=== PATIENT | female | born 1955 | race Caucasian/White ===

== ENCOUNTER 2024-09-30 01:04 | Inpatient (IN) | payer MEDICARE, SELFPAY ==
[2024-09-30] VITALS (18 sets, daily range): BP systolic 105–147; BP diastolic 28–96; PULSE 64–146; RESP 12–27; TEMP 36.4–36.9; O2SAT 92–98; BMI 28.1
--- NOTE | 2024-09-30 | ECG_ITS ---
Test Reason : DYSPNEA Blood Pressure : */* mmHG Vent. Rate : 112 BPM Atrial Rate : * BPM P-R Int : * ms QRS Dur : 82 ms QT Int : 318 ms P-R-T Axes : * 15 161 degrees QTcB Int : 434 ms Atrial fibrillation with rapid ventricular response with occasional ventricular-paced complexes ST & T wave abnormality, consider lateral ischemia Abnormal ECG No previous ECGs available Referred By: Generic ED Physician Electronically Signed By: AYALA DOOLEY MD
--- NOTE | ~2024-09-30 | XR_ITS ---
EXAMINATION: XR CHEST CLINICAL INFORMATION: Hypoxemia for eval COMPARISON: 09/30/2024. TECHNIQUE: Frontal view of the chest was obtained. FINDINGS: Right chest port in place, tip in the mid SVC. There is a mildly redundant loop in the extrathoracic right IJ. This has retracted mildly from the prior exam. Dual lead left pacer device with leads in the right atrium and right ventricle. There is borderline cardiac enlargement. Mediastinal and hilar contours are normal. Aortic mural calcification. The lungs are hyperaerated, however grossly clear bilaterally. Minimal linear opacity left base, likely atelectasis. No pneumothorax or effusion. No focal osseous or soft tissue abnormality. XR/XR chest 1V IMPRESSION: 1. Right chest port has retracted mildly into the right IJ. Tip is now in the mid SVC. 2. Dual-lead pacer in good position. 3. Borderline cardiac enlargement. 4. Hyperaerated lung parenchyma. Linear opacity left base, likely atelectasis. Cannot definitively exclude pneumonia given the appearance. Electronically signed by: Jose Martin Ramirez MD 10/05/2024 03:59 PM ROSA
--- NOTE | ~2024-09-30 | XR_ITS ---
CLINICAL HISTORY: chf 1 view chest x-ray Comparison: None Findings: Increasing consolidation within the left lung concerning for infection. Right lung remains predominantly clear. Right chest port place. Heart size is stable. Dual lead ICD with left chest battery pack. No acute osseous findings. IMPRESSION: 1. Worsening consolidation on the left concerning for infection. This document has been electronically signed by: Aleja Hill MD on 10/06/2024 05:36:10
--- NOTE | ~2024-09-30 | XR_ITS ---
CLINICAL HISTORY: dyspnea 1 view chest x-ray. Comparison: None Findings: There is mild left basilar opacity possibly small effusion, atelectasis, and/or infiltrate. Lungs appear otherwise clear. Cardiomediastinal silhouette is within normal limits. There is a left-sided pacemaker with leads in the right atrium and right ventricle. There is a right IJ port catheter with tip in the SVC. IMPRESSION: Mild left basilar opacity possibly small effusion, atelectasis, and/or infiltrate. This document has been electronically signed by: Anton Saunders MD on 09/30/2024 02:08:04
--- NOTE | 2024-09-30 01:27 | ED.SOB ---
HPI - SOB/Dyspnea General Chief Complaint: Dyspnea Stated Complaint: SOB/CHEST TIGHTNESS Time Seen by Provider: 09/30/24 01:26 Source: patient Mode of arrival: EMS Limitations: no limitations History of Present Illness ED Provider: HPI Narrative: Patient's history of atrial fibrillation status post pacemaker for bradycardia which was placed 2 weeks ago on Eliquis and metoprolol and digoxin comes here as patient just prior to arrival was feeling palpitation with shortness of breath and chest tightness heart rate was in 130s/175s lately for last few days patient has been having exertional dyspnea with palpitation Related Data Allergies Allergy/AdvReac Type Severity Reaction Status Date / Time No Known Allergies Allergy Verified 09/30/24 01:21 Review of Systems Review of Systems: Yes all other systems are reviewed and are negative [facility] Past Medical History Medical History Mood disorder Atrial fibrillation Hypothyroidism Social History Social History Patient Tobacco Use Status: Never used Tobacco Smoked in Last 30 Days: No Use of substances other than those prescribed or required for medical reasons: No Advance Directives: No Nutrition Risks: No Nutritional Risk Physical Exam Vital Signs: Vital Signs: Last Vital Signs Temp 97.6 F 09/30/24 05:06 Pulse 75 09/30/24 05:06 Resp 12 09/30/24 05:06 BP 105/74 09/30/24 05:06 Pulse Ox 98 09/30/24 05:06 O2 Del Method Room Air 09/30/24 05:06 BMI result Body Mass Index 28.1 Appearance: Alert. Oriented X3. No acute distress. Eyes: PERRLA, No Nystagmus ENT: Pharynx normal. Oral Mucosa moist Neck: Normal inspection. Neck supple. CVS: Irregularly irregular tachycardic. Pulses normal. Respiratory: No respiratory distress. Equal air entry bilateral, occasional crackles at the bases Abdomen: Soft and nontender. Bowel sounds are present, no mass palpable, no CVA tenderness Skin: Skin warm and dry. Normal skin color. Normal skin turgor. Extremities: No lower extremity edema. No calf tenderness Neuro: Oriented X 3. No motor deficit. No sensory deficit.No cerebellar signs , cranial nerves II-XII intact Medications Administered Generic Name Dose Route Start Last Admin Trade Name Freq PRN Reason Stop Dose Admin Diltiazem HCl 125 mg/ Sodium 125 mls @ 0 mls/hr 09/30/24 03:45 09/30/24 03:58 Chloride IVCONT 10 mg/hr .Q0M NACHO 10 mls/hr Administration Protocol Per Protocol Discontinued Medications Generic Name Dose Route Start Last Admin Trade Name Freq PRN Reason Stop Dose Admin Clonazepam 0.5 mg 09/30/24 04:38 09/30/24 05:02 Clonazepam 0.5 Mg Tablet PO 09/30/24 04:39 0.5 mg ONCE ONE Administration Diltiazem HCl 10 mg 09/30/24 01:38 09/30/24 01:57 Diltiazem Hcl 50 Mg/10 Ml Vial IVPUSH 09/30/24 01:39 10 mg STAT STA Administration Furosemide 20 mg 09/30/24 03:37 09/30/24 03:52 Furosemide 20 Mg/2 Ml Vial IVPUSH 09/30/24 03:38 20 mg ONCE ONE Administration Protocol Medical Decision Making Medical Decision Making [facility] Narrative: Patient with AFib with rapid ventricular rate on digoxin and metoprolol initial IV Cardizem was given rate improved to 80 then again started tachycardic to 110-120 stays in AFib started patient on Cardizem drip also patient has a elevated BNP no prior labs available few crackles at the bases and patient has dyspnea on exertion not on any diuretics will give IV Lasix admit to hospitalist service Differential Diagnosis Differential Diagnoses: The differential diagnosis associated with the presentation includes AFib/atrial flutter/cardiac arrhythmias/CHF Admission/Observation Consideration of admission/observation: Escalation of care including admission/observation considered Consult Healthcare Provider Management of the patient was discussed with: Hospitalist Lab Data [facility] Lab Attestation statement: I reviewed the patient's lab results. 09/30/24 01:21 09/30/24 01:21 Labs: Lab Results 09/30/24 Range/Units 01:21 WBC 10.8 (4.8-10.8) X10*3/uL RBC 4.48 (4.20-5.50) X10*6/uL Hgb 12.7 (12.0-16.0) g/dl Hct 39.7 (37.0-47.0) % MCV 88.6 (80.0-98.0) fL MCH 28.3 (27.0-33.0) pg MCHC 32.0 (31.0-35.0) g/dl RDW 14.7 (11.0-16.0) % Plt Count 410 H (160-400) X10*3/uL MPV 11.1 (9.4-12.3) fL Immature Gran % (Auto) 0.5 H (0.0-0.4) % Neut % (Auto) 70.8 (45-73) % Lymph % (Auto) 17.4 L (20-40) % Robeson % (Auto) 9.2 (2-11) % Eos % (Auto) 1.2 (0-4) % Baso % (Auto) 0.9 (0-2) % Lymph # (Auto) 1.9 (1.2-4.9) X10*3/uL [place] # (Auto) 1.0 (0.1-1.2) X10*3/uL Eos # (Auto) 0.1 (0.0-0.4) X10*3/uL Baso # (Auto) 0.1 (0.0-0.2) X10*3/uL Abs Immat Gran (auto) 0.05 H (0.00-0.03) X10*3/uL Absolute Neuts (auto) 7.6 (2.0-8.3) x10*3/uL Absolute Nucleated RBC 0.000 (0.0-0.012) X10*3/uL Nucleated RBC % (auto) 0.0 (0.0-0.2) /100WBC Sodium 143 (135-145) mmol/L Potassium 4.2 (3.3-5.1) mmol/L Chloride 112 H (96-108) mmol/L Carbon Dioxide 22 (22-29) mmol/L Anion Gap 13 (12-20) BUN 30 H (9-16) mg/dL Creatinine 1.20 (0.5-1.4) mg/dL Estim Creat Clear Calc 52.5 Estimated GFR 45 Random Glucose 123 H (60-115) mg/dL Calcium 9.3 (8.4-10.2) mg/dL Total Bilirubin 0.4 (0.0-1.0) mg/dL AST 94 H (5-31) U/L ALT 111 H (0-31) U/L Alkaline Phosphatase 159 H (39-117) U/L Troponin I High Sens 15.7 (<3.5-17.0) ng/L B-Natriuretic Peptide 2710 H (<100) pg/mL Total Protein 7.5 (6.5-8.0) g/dL Albumin 3.6 (3.5-5.0) g/dL Independent Interpretation I performed an independent interpretation of an: EKG and Plain X-Ray Interpretation: Atrial fibrillation with rapid ventricular rate of 112 nonspecific STT wave change no acute ischemia Radiology Impression Discussion of test interpretation with radiology: I have reviewed the radiologist's reading. Radiologist Impression: [address] [address] XRay Report Signed Patient: Antonia Mandujano MR#: [id number] : 1955 Acct:[id number] Age/Sex: 69 / F ADM Date: 09/30/24 Loc: .ED Attending Dr: Ordering Physician: Víctor Doe MD Date of Service: 09/30/24 Procedure(s): XR chest 1V Accession Number(s): [id number] cc: Víctor Doe MD~ CLINICAL HISTORY: dyspnea 1 view chest x-ray. Comparison: None Findings: There is mild left basilar opacity possibly small effusion, atelectasis, and/or infiltrate. Lungs appear otherwise clear. Cardiomediastinal silhouette is within normal limits. There is a left-sided pacemaker with leads in the right atrium and right ventricle. There is a right IJ port catheter with tip in the SVC. IMPRESSION: Mild left basilar opacity possibly small effusion, atelectasis, and/or infiltrate. This document has been electronically signed by: Anton Saunders MD on 09/30/2024 02:08:04 Critical Care Time Critical Care Time Critical Care Time: Yes Total Critical Care Time: 55 Attestation: The patient was critically ill with a high probability of imminent or life threatening deterioration. I spent greater than 60???minutes of discontinuous time evaluating the patient,delivering critical care at the bedside, discussing and evaluating pertinent data with consultants. Critical care time does not include time spent performing separately billable procedures or teaching. Total time spent performing critical care was 55???minutes. Discharge Plan Discharge Clinical Impression: Atrial fibrillation with rapid ventricular response, Congestive heart failure Patient Disposition: Admitted As Inpatient
[2024-09-30 01:28] LABS: Basophils Absolute Auto 0.1 X10*3/uL (0.0-0.2); Basophils Percent Auto 0.9 % (0-2); Eosinophils Absolute Auto 0.1 X10*3/uL (0.0-0.4); Eosinophils Percent Auto 1.2 % (0-4); Hematocrit 39.7 % (37.0-47.0); Hemoglobin 12.7 g/dl (12.0-16.0); Imm Gran Abs Auto 0.05 X10*3/uL (0.00-0.03); Imm Gran Pct Auto 0.5 % (0.0-0.4); Lymphocytes Absolute Auto 1.9 X10*3/uL (1.2-4.9); Lymphocytes Percent Auto 17.4 % (20-40); MANUAL DIFF FLAG NO; Mean Corpuscular Hemoglobin 28.3 pg (27.0-33.0); Mean Corpuscular Volume 88.6 fL (80.0-98.0); Mean Platelet Volume 11.1 fL (9.4-12.3); Monocytes Percent Auto 9.2 % (2-11); Neutrophils Absolute Auto 7.6 x10*3/uL (2.0-8.3); Neutrophils Percent Auto 70.8 % (45-73); Platelet Count 410 X10*3/uL (160-400); Red Blood Count 4.48 X10*6/uL (4.20-5.50); Red Cell Distribution Width 14.7 % (11.0-16.0); White Blood Count 10.8 X10*3/uL (4.8-10.8)
[2024-09-30 01:49] LABS: Alanine Aminotransferase 111 U/L (0-31); Albumin Level 3.6 g/dL (3.5-5.0); Anion Gap 13 (12-20); Aspartate Amino Transferase 94 U/L (5-31); Bilirubin Total 0.4 mg/dL (0.0-1.0); Blood Urea Nitrogen 30 mg/dL (9-16); Calcium 9.3 mg/dL (8.4-10.2); Carbon Dioxide 22 mmol/L (22-29); Chloride 112 mmol/L (96-108); Creatinine Clr Calc Pharmacy 52.5; Estimated Glomerular Filt Rate 45; Glucose Random 123 mg/dL (60-115); Potassium 4.2 mmol/L (3.3-5.1); Sodium 143 mmol/L (135-145); Total Protein 7.5 g/dL (6.5-8.0)
[2024-09-30 01:50] LABS: Troponin-I High Sensitivity 15.7 ng/L (<3.5-17.0)
[2024-09-30 01:57] LABS: B Type Natriuretic Peptide 2710 pg/mL (<100)
[2024-09-30] MEDS: dilTIAZem HCL 50 MG/10 ML VIAL 10 MG IVPUSH (01:57)
[2024-09-30 02:53] LABS: Alkaline Phosphatase 159 U/L (39-117)
--- NOTE | 2024-09-30 03:12 | ECG_ITS ---
Test Reason : AFIB Blood Pressure : */* mmHG Vent. Rate : 103 BPM Atrial Rate : * BPM P-R Int : * ms QRS Dur : 86 ms QT Int : 368 ms P-R-T Axes : * 40 160 degrees QTcB Int : 482 ms Atrial fibrillation with rapid ventricular response with occasional ventricular-paced complexes ST & T wave abnormality, consider lateral ischemia Abnormal ECG When compared with ECG of 30-Sep-2024 01:14, Vent. rate has decreased by 9 bpm Referred By: Víctor Doe Electronically Signed By: AYALA DOOLEY MD
[2024-09-30] MEDS: Furosemide 20 MG/2 ML VIAL IVPUSH (03:52)
[2024-09-30] MEDS: dilTIAZem HCL 125 MG in 0.9 % Sodium Chloride 100 ML 10 MG IVCONT (03:58)
--- NOTE | 2024-09-30 04:18 | PM.IMHP ---
History of Present Illness Date of Service: 09/30/24 Chief Complaint: Dyspnea, palpitations This is a 69-year-old female with pertinent history of atrial fibrillation on Eliquis, hypothyroidism, mood disorder, tobacco use disorder who presents to the emergency department for evaluation of palpitations and shortness of breath. Patient states her symptoms started on the day of presentation. She had sudden onset of palpitations while she was walking. The shortness of breath is worse with exertion and when lying flat. No history of heart failure in the past and patient is not on diuretics. No fever, chills, cough, abdominal pain, changes in urinary or bowel habits. In the emergency department, patient was found to be in AFib with RVR and initiated on IV diltiazem drip. Also BNP found to be elevated and patient was given IV Lasix Review of Systems Cardiovascular: Cardiovascular: Reports rapid heart rate, Reports dyspnea on exertion and Reports orthopnea Respiratory: Respiratory: Reports dyspnea on exertion [facility] Medical History Mood disorder Atrial fibrillation Hypothyroidism Pertinent family history: No family history of early CAD Social History Advance Directives: No Meds Allergies Allergy/AdvReac Type Severity Reaction Status Date / Time No Known Allergies Allergy Verified 09/30/24 01:21 Active Medications: Current Medications Diltiazem HCl 125 mg/ Sodium (Chloride) 125 mls @ 0 mls/hr IVCONT .Q0M [facility]; Protocol Last Admin: 09/30/24 03:58 Dose: 10 mg/hr, 10 mls/hr Physical Exam Vital Signs and Narrative: Vital Signs: Last Vital Signs Temp 97.6 F 09/30/24 01:17 Pulse 123 H 09/30/24 03:58 Resp 24 H 09/30/24 03:21 BP 112/81 09/30/24 03:58 Pulse Ox 98 09/30/24 03:21 O2 Del Method Room Air 09/30/24 03:21 BMI result Body Mass Index 28.1 Middle-aged female lying in bed in mild distress Neck supple Irregularly irregular, S1-S2 heard Bilateral crackles present Abdomen soft nontender, no guarding, no rigidity Patient is awake, alert and oriented to self, place, time and person ; no focal motor deficit Psych: Normal mood Bilateral mild pedal edema Results Labs 09/30/24 01:21 09/30/24 01:21 Labs: Laboratory Results - last 24 hr 09/30/24 01:21 MCV 88.6 MCH 28.3 MCHC 32.0 RDW 14.7 Plt Count 410 H MPV 11.1 Immature Gran % (Auto) 0.5 H Neut % (Auto) 70.8 Lymph % (Auto) 17.4 L [place] % (Auto) 9.2 Eos % (Auto) 1.2 Baso % (Auto) 0.9 Lymph # (Auto) 1.9 [place] # (Auto) 1.0 Eos # (Auto) 0.1 Baso # (Auto) 0.1 Abs Immat Gran (auto) 0.05 H Absolute Neuts (auto) 7.6 Absolute Nucleated RBC 0.000 Nucleated RBC % (auto) 0.0 Anion Gap 13 Estim Creat Clear Calc 52.5 Estimated GFR 45 Random Glucose 123 H Calcium 9.3 Total Bilirubin 0.4 AST 94 H ALT 111 H Alkaline Phosphatase 159 H B-Natriuretic Peptide 2710 H Total Protein 7.5 Albumin 3.6 Assessment and Plan (1) Congestive heart failure: Status: Acute (2) Atrial fibrillation with rapid ventricular response: Status: Acute Plan This is a 69-year-old female with pertinent history of atrial fibrillation on Eliquis, hypothyroidism, mood disorder, tobacco use disorder who presents to the emergency department for evaluation of palpitations and shortness of breath. #. AFib with RVR: Will admit patient with cardiac monitoring on IV diltiazem drip. Patient is on p.o. metoprolol. Consulted Cardiology, appreciate assistance. Obtaining TSH. Patient on Eliquis #. Acute congestive heart failure, unspecified EF: Initiated IV diuresis. Strict I's and O's. Low-salt diet. Obtaining echo. #. Hypothyroidism: On Synthroid #. Mood disorder: Continue home mood stabilizers #. Tobacco use disorder: NRT while in the hospital Med rec pending DVT prophylaxis: Eliquis Full code Admit as inpatient and will require two night minimum hospital stay for IV diuresis, monitoring of heart rate, IV diltiazem (as above), which is not possible in a lesser acute setting. Cardiology consult pending Quality Stroke Does the patient have a stroke diagnosis?: No VTE Prior VTE?: No VTE Risk Level:: Medical - moderate - high VTE Device Contraindication: Treatment Not Indicated VTE Drug Contraindication: N/A - Med Ordered
[2024-09-30] MEDS: clonazePAM 0.5 MG TABLET PO ×3 (05:02→20:56)
--- NOTE | 2024-09-30 06:19 | PC.NURSE ---
pt resting comfortably, purewick in place. denies pain or SOB at this time. A/O, calm and cooperative with care. 20 IV L forearm.
--- NOTE | 2024-09-30 06:22 | PC.NURSE ---
after rolling in bed to change bed pads, noticed back was red. pt stated she burnt her back on a heating pad 2 weeks ago and it is still healing. denies pain. no open wounds, just redness
--- NOTE | 2024-09-30 06:27 | PC.NURSE ---
diltiazem drip paused per MD, pt's HR remains consistently under 90bpm, averaging 72bm
--- NOTE | 2024-09-30 07:29 | PM.EVENT ---
Event Note Date of Service: 09/30/24 Event Note: Pt seen/examined, labs, meds, vital review. HR is now better controlled. 69/F with pertinent history of atrial fibrillation on Eliquis, SSS s/p pacemaker, hypothyroidism, history of endometrial cancer, mood disorder, tobacco use disorder who presents to the emergency department for evaluation of palpitations and shortness of breath. AFib with RVR, rate controlled. metoprolol 25 q6 start eliquis cardiology consult TSH is normal Hypothyroidism On Synthroid Mood disorder Continue home mood stabilizers Tobacco use disorder NRT while in the hospital DVT prophylaxis: [employer] Full code Time Spent With Patient Time: Total time managing care of this patient today ____ minutes.
[2024-09-30 08:03] LABS: Hematocrit 44.8 % (37.0-47.0); Hemoglobin 13.9 g/dl (12.0-16.0); Mean Corpuscular Hemoglobin 28.1 pg (27.0-33.0); Mean Corpuscular Volume 90.5 fL (80.0-98.0); Mean Platelet Volume 11.4 fL (9.4-12.3); Platelet Count 347 X10*3/uL (160-400); Red Blood Count 4.95 X10*6/uL (4.20-5.50); Red Cell Distribution Width 14.8 % (11.0-16.0); White Blood Count 8.9 X10*3/uL (4.8-10.8)
[2024-09-30] MEDS: Furosemide 40 MG/4 ML VIAL IVPUSH (08:08)
[2024-09-30] MEDS: 0.9 % Sodium Chloride Flush 3 ML SYRINGE IVFLUSH ×3 (08:09→23:42)
[2024-09-30 08:52] LABS: Thyroid Stimulating Hormone 2.87 uIU/mL (0.32-4.0)
[2024-09-30] MEDS: Apixaban 5 MG TABLET PO ×2 (08:52→20:57)
[2024-09-30] MEDS: Metoprolol Tartrate 25 MG TABLET PO ×2 (08:52→12:16)
[2024-09-30 08:59] LABS: Anion Gap 17 (12-20); Blood Urea Nitrogen 26 mg/dL (9-16); Calcium 9.3 mg/dL (8.4-10.2); Carbon Dioxide 20 mmol/L (22-29); Chloride 109 mmol/L (96-108); Creatinine Clr Calc Pharmacy 64.9; Estimated Glomerular Filt Rate 57; Glucose Random 100 mg/dL (60-115); Potassium 4.3 mmol/L (3.3-5.1); Sodium 142 mmol/L (135-145)
[2024-09-30 09:05] LABS: Thyroid Stimulating Hormone 2.37 uIU/mL (0.32-4.0)
--- NOTE | 2024-09-30 11:39 | PM.CNCAR ---
History of Present Illness History of Present Illness Date of Service: 09/30/24 Requesting physician: Kin Rizvi Consult reason: atrial fibrillation and congestive heart failure Chief complaint: palpitations sob Narrative: I was consulted to see Antonia in cardiology consultation today for management of atrial fibrillation as well as findings suggestive of congestive heart failure. Patient was 69-year-old female with no significant past medical cardiovascular history with no history of hypertension, diabetes, coronary artery disease, congestive heart failure. She said in June she developed symptoms of palpitation when to local primary care physician was told that she had atrial fibrillation was started on metoprolol and oral anticoagulation therapy. She was then advised to have a monitor done. She started noticing symptoms of exertional shortness of breath doing her routine activity. About couple weeks ago she ended up having a syncopal episode ended up going to [facility] where she underwent a pacemaker placement, the company and type of pacemaker is unknown at this point in time. Patient says she was therefore couple weeks and was not sure as to what was happening there. At that time she noted to discoloration of her toes with gangrenous changes in the right great toe as well as mild diagnose changes in the tips of the 1st and the 2nd left toes. She had extensive ischemic workup as per her and was told that this was related to blood clots. She subsequently started him more trouble breathing and went to [facility] and was felt like she was having anxiety panic attack and was sent to a psychiatric hospital where she was sent and then from there she continued to have significant symptoms and was referred here for further evaluation. When she came to the Emergency was noted to have significantly elevated BNP in the 2700 range along with rapid atrial fibrillation. She was then started on Cardizem drip. She was at better rate control now. Currently on p.o. metoprolol unclear whether the Cardizem drip is still running. Her heart rate when I saw her was running between 80-110 beats per minute intermittent pacing complexes. She says she feels a lot better than she was when she was at the psychiatric facility. She was still having rapid heart rate and difficulty with laying flat with shortness of breath. Since he was she was negative balance of about 2 L. Review of Systems Constitutional: Constitutional: Reports no additional constitutional complaints Eyes: Eyes: Reports no additional eye complaints Cardiovascular: Cardiovascular: Denies chest pain, Reports leg edema, Reports lightheadedness, Denies Loss of Consciousness, Reports palpitations, Reports dyspnea on exertion, Reports orthopnea and Reports other (Black toes) Respiratory: Respiratory: Denies cough and Reports dyspnea on exertion Gastrointestinal: Gastrointestinal: Reports no additional gastrointestinal complaints Musculoskeletal: Musculoskeletal: Reports no additional musculoskeletal complaints Neurologic: Reports system reviewed and no additional complaints, except as documented Psychiatric: Psychiatric: Reports no additional psychiatric complaints Endocrine: Endocrine: Reports palpitations PMFSH Past Medical History Medical History Mood disorder Atrial fibrillation Hypothyroidism Social History Social History Patient Tobacco Use Status: Never used Tobacco Smoked in Last 30 Days: No Use of substances other than those prescribed or required for medical reasons: No Advance Directives: No Nutrition Risks: No Nutritional Risk Meds Allergies Allergy/AdvReac Type Severity Reaction Status Date / Time No Known Allergies Allergy Verified 09/30/24 01:21 Active Medications: Current Medications Acetaminophen (Acetaminophen 325 Mg Tablet) 650 mg PO Q6H PRN PRN Reason: Pain, Mild 1-3,fever,headache Apixaban (Apixaban 5 Mg Tablet) 5 mg PO BID [facility] Last Admin: 09/30/24 08:52 Dose: 5 mg Calcium Carbonate (Calcium Carbonate 750 Mg Tab.Chew) 750 mg PO Q4H PRN PRN Reason: Heartburn Empagliflozin (Empagliflozin 10 Mg Tablet) 10 mg PO DAILY NACHO Furosemide (Furosemide 40 Mg/4 Ml Vial) 40 mg IVPUSH DAILY [facility]; Protocol Last Admin: 09/30/24 08:08 Dose: 40 mg Magnesium Hydroxide (Milk Of Magnesia 30 Ml Oral.Susp) 30 ml PO DAILY PRN PRN Reason: Constipation Melatonin (Melatonin 3 Mg Tablet) 6 mg PO BEDTIME PRN PRN Reason: Insomnia Metoprolol Tartrate (Metoprolol Tartrate 25 Mg Tablet) 25 mg PO QID [facility]; Protocol Last Admin: 09/30/24 08:52 Dose: 25 mg Nicotine Polacrilex (Nicotine Polacrilex 2 Mg Gum) 2 mg BUCCAL Q2H PRN PRN Reason: Nicotine Cravings Ondansetron HCl (Ondansetron Hcl 4 Mg/2 Ml Vial) 4 mg IVPUSH Q8H PRN PRN Reason: Nausea and Vomiting Sodium Chloride (0.9 % Sodium Chloride Flush 3 Ml Syringe) 3 ml IVFLUSH QSHIFT NACHO Last Admin: 09/30/24 08:09 Dose: 3 ml Physical Exam Vital Signs: Vital Signs: Last Vital Signs Temp 97.6 F 09/30/24 05:06 Pulse 64 09/30/24 10:40 Resp 20 09/30/24 10:40 BP 117/63 09/30/24 10:40 Pulse Ox 97 09/30/24 10:40 O2 Del Method Room Air 09/30/24 10:40 BMI result Body Mass Index 28.1 Const: General: cooperative, comfortable, no acute distress, alert and awake Nutritional Appearance: average body habitus Orientation/consciousness: patient oriented x3 HEENT: Head: Yes normocephalic and Yes atraumatic Neck: Neck: Yes trachea midline, Yes supple and Yes JVD Resp: Effort & Inspection: normal respiratory effort Auscultation: clear to auscultation bilaterally Cardio: Jugular venous distension: JVD Rhythm: abnormal rhythm irregularly irregular Heart sounds: S1 normal heart sound present, S2 normal heart sound present, no click, no gallops, no murmurs and no rubs GI: Auscultation: normal bowel sounds Skin: General skin exam: no rashes or lesions noted Neuro: General: patient oriented x3 and no focal motor deficits Extrem: General: No clubbing, No cyanosis, Yes edema (Mild) and Yes other (Gangrenous right toe, gangrenous changes in the left toes) Objective Labs and Meds 09/30/24 07:53 09/30/24 07:53 Lab results: Laboratory Results - last 24 hr 09/30/24 09/30/24 01:21 07:53 WBC 10.8 8.9 RBC 4.48 4.95 Hgb 12.7 13.9 Hct 39.7 44.8 MCV 88.6 90.5 MCH 28.3 28.1 MCHC 32.0 31.0 RDW 14.7 14.8 Plt Count 410 H 347 MPV 11.1 11.4 Immature Gran % (Auto) 0.5 H Neut % (Auto) 70.8 Lymph % (Auto) 17.4 L [place] % (Auto) 9.2 Eos % (Auto) 1.2 Baso % (Auto) 0.9 Lymph # (Auto) 1.9 [place]oke # (Auto) 1.0 Eos # (Auto) 0.1 Baso # (Auto) 0.1 Abs Immat Gran (auto) 0.05 H Absolute Neuts (auto) 7.6 Absolute Nucleated RBC 0.000 0.000 Nucleated RBC % (auto) 0.0 0.0 Sodium 143 142 Potassium 4.2 4.3 Chloride 112 H 109 H Carbon Dioxide 22 20 L Anion Gap 13 17 BUN 30 H 26 H Creatinine 1.20 0.97 Estim Creat Clear Calc 52.5 64.9 Estimated GFR 45 57 Random Glucose 123 H 100 Calcium 9.3 9.3 Total Bilirubin 0.4 AST 94 H ALT 111 H Alkaline Phosphatase 159 H Troponin I High Sens 15.7 B-Natriuretic Peptide 2710 H Total Protein 7.5 Albumin 3.6 TSH 2.87 2.37 Assessment and Plan (1) Decompensated heart failure: Status: Acute Decompensated congestive heart failure with symptoms suggestive of congestive heart failure with markedly elevated BNP. Most likely tachycardia mediated cardiomyopathy. Will need echocardiogram. Please request will most likely be done tomorrow. Continue rate control with metoprolol, currently on 25 mg q.6. If rate remains difficult control, can add digoxin see below. Add Jardiance 10 mg to regimen. Continue diuresis with Lasix. Clinically appears much improved and she feels a lot better. Follow-up electrolytes, BNP as well as BNP tomorrow. Depending on LV systolic function will consider adding additional neurohormonal modulation including Entresto if need be. Will also probably need ischemic workup but that can be performed as an outpatient. (2) Atrial fibrillation with rapid ventricular response: Status: Acute Patient present with atrial fibrillation rapid ventricular response with better rate control after IV Cardizem although high likelihood of underlying systolic dysfunction. Would switch to digoxin if rate becomes difficult control. Continue metoprolol and maximize therapy. Continue full oral anticoagulation with Eliquis, changes in his toes most likely related to embolic event. Obtain records from [facility] regarding her pacemaker as well as well as vascular workup. Consider vascular surgical consult as well. Will follow with you Procedures Date of Service Date of Service: 09/30/24
[2024-09-30] MEDS: Empagliflozin 10 MG TABLET PO (12:16)
[2024-09-30] MEDS: Acetaminophen 325 MG TABLET 650 MG PO ×2 (12:47→21:04)
[2024-09-30] MEDS: Clopidogrel Bisulfate 75 MG TABLET PO (15:05)
[2024-09-30] MEDS: Digoxin 0.125 MG TABLET PO (15:06)
[2024-09-30] MEDS: Levothyroxine Sodium 50 MCG TABLET PO (15:07)
--- NOTE | 2024-09-30 15:16 | PHA.MEDREC ---
Addendum entered by José Miguel Lowery [facility] 10/02/24 09:43: Spoke with [facility] specialty pharmacy to confirm directions for Lenvima. Fermín [facility], confirmed dose is 10mg daily, however pt reported that she is no longer takign this medication as of 09/25/24. Pt planned to follow up with provider, and there is no documentation when patient will resume. Addendum entered by Rupal Topete [facility] 09/30/24 15:19: reviewed by [facility]. Original Note: Pharmacy Consult ? Medication Reconciliation Pharmacy has completed the medication reconciliation. Used med lists from [facility]. Patient was taking Lenvima for endometrial cancer (filled 09/07). She was taking it for about a week, last took 3-4 days ago. She was not getting it at [facility]. She does not remember the directions and it is not reported on claims. Will have med [employer] [facility] call specialty pharmacy tomorrow to verify directions.
[2024-09-30] MEDS: Venlafaxine HCl ER 150 MG CAP.ER.24H PO (15:20)
--- NOTE | 2024-09-30 16:13 | MHC.CM.PN ---
PT REPORTS SHE LIVES ALONE AND IS INDEPENDENT WITH CARE SHE IS ACTIVE WITH [employer] AND HAS NO DME COPY OF HCP REQUESTED PCP: FISH MEDRANO IMM DELIVERED DCP: HOME VIA PRIVATE TRANSPORT
[2024-09-30] MEDS: Metoprolol Tartrate 100 MG TABLET 200 MG PO (20:56)
[2024-09-30] MEDS: Atorvastatin Calcium 10 MG TABLET PO (20:57)
--- NOTE | 2024-09-30 21:16 | PC.NURSE ---
Notified MD of patients periodically elevated HR up to 140. HR is not sustained at this time. Bedtime metoprolol given, will continue to monitor and keep MD aware.
[2024-09-30] MEDS: Latanoprost 0.005 % Ophth Sol 2.5 ML DROPS 1 DROP EYE-BOTH (21:33)
[2024-09-30] MEDS: Brimonidine Tartrate 0.2% Oph 5 ML BOTTLE 1 DROP EYE-BOTH (21:34)
[2024-10-01] VITALS (9 sets, daily range): BP systolic 82–112; BP diastolic 56–77; PULSE 70–117; RESP 14–27; TEMP 36.3–37.1; O2SAT 94–99
[2024-10-01] MEDS: Levothyroxine Sodium 50 MCG TABLET PO (05:16)
--- NOTE | 2024-10-01 07:00 | CA_ITS ---
Transthoracic Echocardiogram Amended Patient (Last, First, Middle): Antonia Mandujano, Gender: Female Date of : 1955 Age: 69 Procedure Date: 10/01/2024 Procedure Type: Transthoracic Echocardiogram Location: [facility] [place] Height: 175.26 cm Weight: 86.18 kg BSA: 2.02 m2 Heart Rate: bpm BP: 109 / 77 mmHg Line Service Person: TO Referring MD: Anthony Alegre MD Symptoms: chf, afib Study Quality: Fair/Contrast ECG Rhythm: Atrial Fibrillation Conclusions: - The left ventricular systolic function is mildly decreased. The visually estimated ejection fraction is between 40-45%. - Aortic valve calcification with possible mild stenosis. - There is moderate mitral annular calcification. Findings Procedure Information Contrast agent, definity, is being given per protocol without apparent complications. Left Ventricle Normal left ventricular cavity size. The left ventricular systolic function is mildly decreased. The visually estimated ejection fraction is between 40 45%. There is mild global hypokinesis. Diastolic function is indeterminate on the basis of available data. Right Ventricle Normal right ventricular cavity size. There is mildly decreased right ventricular systolic function. Atria The left atrium is mildly dilated. The right atrium is normal in size. Aortic Valve There is moderate calcification of the aortic valve. There is trace (trivial) aortic valve regurgitation. Possible mild aortic stenosis. Mitral Valve There is moderate mitral annular calcification. There is mild mitral valve regurgitation. There is no mitral valve stenosis. Pulmonic Valve The pulmonic valve is likely normal. Tricuspid Valve There is no tricuspid valve regurgitation. Tricuspid regurgitation envelope is inadequate for calculation of right ventricular systolic pressure. Great Vessels The asc aorta is normal in size. Venous The inferior vena cava is normal in size. Pericardium/Pleural There is no evidence of pericardial effusion. Prior Study Comparison No prior study available for comparison. Measurements 2D Linear Measurements IVSd: 1.11 0.6-0.9/0.6-1.0 cm LVIDd: 4.80 3.9-5.3/4.2-5.9 cm LVIDd Index: 2.38 2.4-3.2/2.2-3.1 cm/m2 LVIDs: 3.55 2.0-3.6 cm LVPWd: 0.95 0.7-1.1 cm LA Diam: 4.40 2.7-3.8/3.0-4.0 cm LAIDs Index: 2.18 1.5-2.3 cm/m2 LV Mass: 220.14 67-162/88-224 g LV Mass Index: 108.98 43-95/49-115 g/m2 LVOT Diam: 2.20 3.0+(-)1.3 cm 2D Volumes LA Vol: 36.70 2D Systolic Function EF 4C: 42.20 >55% EF 2C: 41.40 >55% EF BiP: 42.70 >55% Mitral Valve MV VTI: 0.24 MV Pk Rodrigo: 1.12 MV Mn Rodrigo: 0.62 MV Pk Grad: 5.00 MV Mn Grad: 2.00 MV Pk E: 1.00 MV Decel Time: 178.00 E'Lateral: 5.73 E'Medial: 2.76 E/E' Med: 36.20 E/E' Lat: 17.50 PHT: 52.00 MVA PHT: 4.23 MVA Continuity: 2.01 Decel [place]: 5.62 Aortic Valve AoV Pk Rodrigo: 1.51 AoV Mn Rodrigo: 1.14 AoV VTI: 0.26 AoV Pk Grad: 9.00 Aov Mn Grad: 6.00 MARGARET Cont.VTI: 1.86 LVOT LVOT Pk Rodrigo: 0.68 LVOT Mn Rodrigo: 0.47 LVOT VTI: 0.13 LVOT Pk Grad: 2.00 LVOT Mn Grad: 1.00 LVOT Diam: 2.20 LVOT Area: 3.80 Diastolic Function MV Pk E: 1.00 E'Medial: 2.76 E/E' Med: 36.20 E' Laterial: 5.73 E/E' Lat: 17.50 Right Ventricle TAPSE (mm): 12.60 TVS' Rodrigo: 9.13 Tricuspid Valve RA Press: 3.00 Great Vessels Aorta Sinus of Valsalva: 3.23 2.0-3.5 cm Ao Asc: 3.30 2.1-3.4 cm Updated in Other Vendor System with Status of Final Dhiraj Landin MD electronically signed on 10/02/2024 10:14:00 AM with status of Final
[2024-10-01] MEDS: 0.9 % Sodium Chloride Flush 3 ML SYRINGE IVFLUSH ×3 (09:04→20:11)
[2024-10-01] MEDS: Furosemide 40 MG/4 ML VIAL IVPUSH (09:04)
[2024-10-01] MEDS: Metoprolol Tartrate 100 MG TABLET 200 MG PO (09:04)
[2024-10-01] MEDS: clonazePAM 0.5 MG TABLET PO ×2 (09:04→20:11)
[2024-10-01] MEDS: Venlafaxine HCl ER 150 MG CAP.ER.24H PO (09:05)
[2024-10-01] MEDS: Clopidogrel Bisulfate 75 MG TABLET PO (09:05)
[2024-10-01] MEDS: Empagliflozin 10 MG TABLET PO (09:05)
[2024-10-01] MEDS: Aspirin Enteric Coated 81 MG TABLET.DR PO (09:05)
[2024-10-01] MEDS: Brimonidine Tartrate 0.2% Oph 5 ML BOTTLE 1 DROP EYE-BOTH ×2 (09:05→20:11)
[2024-10-01] MEDS: Digoxin 0.125 MG TABLET PO (09:05)
[2024-10-01] MEDS: Apixaban 5 MG TABLET PO ×2 (09:05→20:10)
--- NOTE | 2024-10-01 10:29 | PM.PNCARD ---
Subjective Subjective Date of Service: 10/01/24 Interval history: She states that she is feeling better. Admission documentation as well as consultation reviewed. Overall, recent pacemaker, history of discoloration to her toes with gangrenous changes of uncertain etiology, atrial fibrillation. Shortness of breath is somewhat improved. Review of Systems Review of Systems Yes all other systems are reviewed and are negative Constitutional: Reports as per HPI and Reports no additional constitutional complaints Eyes: Reports as per HPI and Denies no additional eye complaints Denies system reviewed and no additional complaints, except as documented and Reports as per HPI Cardiovascular: Reports as per HPI, Reports no additional cardiovascular complaints, Denies acrocyanosis, Denies cool extremities, Denies chest pain, Denies leg edema, Denies lightheadedness, Denies palpitations and Denies dyspnea Respiratory: Reports as per HPI, Denies no additional respiratory complaints and Denies dyspnea Gastrointestinal: Reports as per HPI and Denies no additional gastrointestinal complaints Genitourinary: Reports as per HPI Musculoskeletal: Reports no additional musculoskeletal complaints and Reports as per HPI Skin/Breast: Reports system reviewed and no additional complaints, except as docu Reports system reviewed and no additional complaints, except as documented and Reports as per HPI Psychiatric: Reports no additional psychiatric complaints and Reports as per HPI Endocrine: Reports no additional endocrine complaints, Reports as per HPI and Denies palpitations Hematologic/Lymphatic: Reports no additional hematologic/lymphatic complaints and Reports as per HPI Allergic/Immunologic: Reports no additional allergic/immunologic complaints and Reports as per HPI Physical Exam Vital Signs: Last Vital Signs Temp 98.4 F 10/01/24 07:59 Pulse 102 H 10/01/24 09:04 Resp 27 H 10/01/24 07:59 BP 108/56 L 10/01/24 09:04 Pulse Ox 96 10/01/24 07:59 O2 Del Method Room Air 10/01/24 07:59 BMI result Body Mass Index 28.1 Const General: comfortable and no acute distress Orientation/consciousness: patient oriented x3 HEENT Other: Unremarkable Head: Yes normal to inspection Neck Neck: Yes normal visual inspection Chest Chest palpation & inspection: normal inspection of the chest Resp Auscultation: clear to auscultation bilaterally Cardio Palpation: normal PMI Heart sounds: S1 normal heart sound present, S2 normal heart sound present, no gallops, no murmurs and no rubs GI Palpation (GI): Soft to palpation Back/Spine/Pelvis Other: unremarkable Skin General skin exam: no rashes or lesions noted Neuro General: patient oriented x3 Extrem Other: Gangrenous changes in the toes. General: Yes normal to inspection Psych Mental Status: mental status grossly normal Objective Labs and Meds 09/30/24 07:53 09/30/24 07:53 Progress Note: A&P Assessment and plan (1) Atrial fibrillation with rapid ventricular response: Status: Acute (2) Gangrene of toe of both feet: Status: Acute Plan On telemetry, somewhat variable rates. She goes from 90s to 100s. For meds, she is on metoprolol 200 mg b.i.d.. Digoxin has been added. Already on anticoagulation. Also listed to be on aspirin/Plavix. Consider discussion with hematology/vascular. Records from [facility]. Await echocardiogram. Time Spent With Patient Time: Total time managing care of this patient today ____ minutes. Progress Note: Quality Stroke Does the patient have a stroke diagnosis?: No Procedures Date of Service Date of Service: 10/01/24
--- NOTE | 2024-10-01 11:32 | HO.SKINPHOTO ---
Location: Category: Stage: Length: Width: Depth: cm Location: Category: Stage: Length: Width: Depth: cm Location: Category: Stage: Length: Width: Depth: cm Location: Category: Stage: Length: Width: Depth: cm Location: Category: Stage: Length: Width: Depth: cm Location: Category: Stage: Length: Width: Depth: cm
--- NOTE | 2024-10-01 12:33 | HO.PM.IMPN ---
Subjective Subjective Date of Service: 10/01/24 Interval History: Still in AFIB with variable rate Hypotension, assymptomatic a Physical Exam Vital Signs: Vital Signs: Last Vital Signs Temp 97.4 F 10/01/24 11:38 Pulse 70 10/01/24 11:38 Resp 14 10/01/24 11:38 BP 82/61 L 10/01/24 11:38 Pulse Ox 99 10/01/24 11:38 O2 Del Method Room Air 10/01/24 11:38 BMI result Body Mass Index 28.1 Const: Other: General: AO X 3, no acute distress Resp: CTA bilateral CVS: S1,S2, iregular iregular GI: +BS, NT, no distention Skin: No rash Neuro: motor grossly intact Psych: appropriate affect Objective Data Active Medications Acetaminophen (Acetaminophen 325 Mg Tablet) 650 mg PO Q6H PRN PRN Reason: Pain, Mild 1-3,fever,headache Last Admin: 09/30/24 21:04 Dose: 650 mg Documented By: AMY Al Hydroxide/Mg Hydroxide (Magnesium Hydrox/Alum Hydrox 30 Ml Oral.Susp) 30 ml PO QID PRN PRN Reason: GI upset Apixaban (Apixaban 5 Mg Tablet) 5 mg PO BID [facility] Last Admin: 10/01/24 09:05 Dose: 5 mg Documented By: JORGE Aspirin (Aspirin Enteric Coated 81 Mg Tablet.) 81 mg PO DAILY [facility] Last Admin: 10/01/24 09:05 Dose: 81 mg Documented By: JORGE Atorvastatin Calcium (Atorvastatin Calcium 10 Mg Tablet) 10 mg PO BEDTIME [facility] Last Admin: 09/30/24 20:57 Dose: 10 mg Documented By: AMY Benzocaine (Throat Lozenge, Medicated Lozenge) 1 lozenge MUCOUS MEM Q2H PRN PRN Reason: Sore Throat Brimonidine Tartrate (Brimonidine Tartrate 0.2% Oph 5 Ml Bottle) 1 drop EYE-BOTH BID [facility] Last Admin: 10/01/24 09:05 Dose: 1 drop Documented By: JORGE Calcium Carbonate (Calcium Carbonate 750 Mg Tab.Chew) 750 mg PO Q4H PRN PRN Reason: Heartburn Clonazepam (Clonazepam 0.5 Mg Tablet) 0.5 mg PO BID [facility] Last Admin: 10/01/24 09:04 Dose: 0.5 mg Documented By: JORGE Clonazepam (Clonazepam 0.5 Mg Tablet) 0.5 mg PO DAILY PRN PRN Reason: severe anxiety or panic attack Clopidogrel Bisulfate (Clopidogrel Bisulfate 75 Mg Tablet) 75 mg PO DAILY [facility] Last Admin: 10/01/24 09:05 Dose: 75 mg Documented By: JORGE Digoxin (Digoxin 0.125 Mg Tablet) 0.125 mg PO DAILY [facility]; Protocol Last Admin: 10/01/24 09:05 Dose: 0.125 mg Documented By: JORGE Docusate Sodium (Docusate Sodium 100 Mg Capsule) 100 mg PO BID PRN PRN Reason: Constipation Empagliflozin (Empagliflozin 10 Mg Tablet) 10 mg PO DAILY [facility] Last Admin: 10/01/24 09:05 Dose: 10 mg Documented By: JORGE Furosemide (Furosemide 40 Mg/4 Ml Vial) 40 mg IVPUSH DAILY [facility]; Protocol Last Admin: 10/01/24 09:04 Dose: 40 mg Documented By: JORGE Guaifenesin (Guaifenesin La 600 Mg Tab.Er.12h) 1,200 mg PO BID PRN PRN Reason: Cough Hydroxyzine HCl (Hydroxyzine Hcl 50 Mg Tablet) 50 mg PO Q4H PRN PRN Reason: moderate to severe anxiety Latanoprost (Latanoprost 0.005 % Ophth Kristie 2.5 Ml Drops) 1 drop EYE-BOTH BEDTIME [facility] Last Admin: 09/30/24 21:33 Dose: 1 drop Documented By: AMY Levothyroxine Sodium (Levothyroxine Sodium 50 Mcg Tablet) 50 mcg PO DAILY@0600 [facility] Last Admin: 10/01/24 05:16 Dose: 50 mcg Documented By: AMY Loperamide HCl (Loperamide Hcl 2 Mg Capsule) 2 mg PO DAILY PRN PRN Reason: for each loose stool Magnesium Hydroxide (Milk Of Magnesia 30 Ml Oral.Susp) 30 ml PO DAILY PRN PRN Reason: Constipation Melatonin (Melatonin 3 Mg Tablet) 6 mg PO BEDTIME PRN PRN Reason: Insomnia Melatonin (Melatonin 3 Mg Tablet) 9 mg PO BEDTIME PRN PRN Reason: Insomnia Metoprolol Tartrate (Metoprolol Tartrate 100 Mg Tablet) 200 mg PO BID [facility]; Protocol Last Admin: 10/01/24 09:04 Dose: 200 mg Documented By: JORGE Nicotine (Nicotine 21 Mg Patch.Td24) 21 mg TRANSDERMA DAILY PRN PRN Reason: nicotine withdrawal Nicotine Polacrilex (Nicotine Polacrilex 2 Mg Gum) 2 mg BUCCAL Q2H PRN PRN Reason: Nicotine Cravings Ondansetron HCl (Ondansetron Hcl 4 Mg/2 Ml Vial) 4 mg IVPUSH Q8H PRN PRN Reason: Nausea and Vomiting Sodium Chloride (0.9 % Sodium Chloride Flush 3 Ml Syringe) 3 ml IVFLUSH QSHIFT [facility] Last Admin: 10/01/24 09:04 Dose: 3 ml Documented By: JORGE Venlafaxine HCl (Venlafaxine Hcl Er 150 Mg Cap.Er.24h) 150 mg PO DAILY [facility] Last Admin: 10/01/24 09:05 Dose: 150 mg Documented By: JORGE Labs 09/30/24 07:53 09/30/24 07:53 Assessment and Plan (1) Atrial fibrillation with rapid ventricular response: Status: Acute (2) Congestive heart failure: Status: Acute (3) Cardiac pacemaker in situ: Status: Acute (4) Hypothyroidism: Status: Acute (5) Gangrene of toe of both feet: Status: Acute Plan 69/F with pertinent history of hypothyroidism, history of endometrial cancer, mood disorder, tobacco use disorder, atrial fibrillation on Eliquis, had a pacemaker at [facility] on 09/12/24 after presenting with syncope and and HR in 20s and 30, and had a pacemaker inserted for sick sinus syndrome, patient was also noted at that time to have gangrenous toes--which she states has been ongoing since last summer, following pacemaker, she was sent to [facility] for Bipolar. She was sent to the ED on this occasion due to palpitations and shortness of breath and admitted for AFIB with RVR and Heart failure. AFib with RVR, rate controlled, in the ED was treated with IV cardizem and has been restarted on home metoprolol 200m g twice daily, digoxin, and Eliquis. Cardiology is following Hypothyroidism On Synthroid HFrEF hold Lasix d/t Hypotension continue jardianc HLD--statin CAD/PAD on plavix, ASA, eliquis, metoprolol PAD with gangrene of toe, not new but reported worse--see pic above vascular consult, may need angiogrram Mood disorder/Bipolar Continue home mood stabilizers CARE consult before dischar Tobacco use disorder NRT while in the hospital DVT prophylaxis: Eliquis Full code Quality Stroke Does the patient have a stroke diagnosis?: No VTE Prior VTE?: No VTE Risk Level:: Medical - moderate - high VTE Device Contraindication: Treatment Not Indicated VTE Drug Contraindication: N/A - Med Ordered
[2024-10-01] MEDS: Lactated Ringers 1,000 ML 999 ML IV (13:10)
[2024-10-01 13:30] LABS: Hemoglobin 14.2 g/dl (12.0-16.0); Mean Corpuscular HGB Conc 32.3 g/dl (31.0-35.0); Mean Corpuscular Hemoglobin 28.1 pg (27.0-33.0); Mean Corpuscular Volume 87.1 fL (80.0-98.0); Mean Platelet Volume 11.3 fL (9.4-12.3); Platelet Count 398 X10*3/uL (160-400); Red Blood Count 5.05 X10*6/uL (4.20-5.50); Red Cell Distribution Width 14.5 % (11.0-16.0); White Blood Count 9.6 X10*3/uL (4.8-10.8)
[2024-10-01 13:48] LABS: Anion Gap 16 (12-20); Blood Urea Nitrogen 26 mg/dL (9-16); Calcium 9.2 mg/dL (8.4-10.2); Carbon Dioxide 26 mmol/L (22-29); Chloride 103 mmol/L (96-108); Creatinine Clr Calc Pharmacy 55.8; Estimated Glomerular Filt Rate 48; Glucose Random 96 mg/dL (60-115); Potassium 3.6 mmol/L (3.3-5.1); Sodium 141 mmol/L (135-145)
[2024-10-01] MEDS: Atorvastatin Calcium 10 MG TABLET PO (20:10)
[2024-10-01] MEDS: Latanoprost 0.005 % Ophth Sol 2.5 ML DROPS 1 DROP EYE-BOTH (20:11)
[2024-10-01] MEDS: Albumin Human 25 % 100 ML IV (21:42)
[2024-10-02] VITALS (8 sets, daily range): BP systolic 90–124; BP diastolic 50–76; PULSE 77–127; RESP 16–20; TEMP 36.1–37.4; O2SAT 94–99
[2024-10-02] MEDS: Albumin Human 25 % 100 ML IV (01:04)
[2024-10-02] MEDS: Acetaminophen 325 MG TABLET 650 MG PO ×2 (01:13→15:46)
--- NOTE | 2024-10-02 01:56 | PM.EVENT ---
Event Note Date of Service: 10/02/24 Event Note: Patient reports dyspnea, worse when lying flat. Bilateral crackles upon examination. Concern for fluid overload/pulmonary edema but unable to diurese as blood pressure soft. Ordered CPAP. Will diurese once pressure improves. Time Spent With Patient Time: Total time managing care of this patient today ____ minutes.
--- NOTE | 2024-10-02 04:40 | PC.NURSE ---
Patient HR jumping anywhere from 120's to 140's. Unable to give metoprolol due to patient BP persistently low in the 80s and 90s systolic. Two doses of albumin ordered and administered. Patient stated she was feeling unwell, c/o HOLLAND and SOB. O2 satting 95% on room air. MD made aware, at bedside to assess. Order for CPAP and to keep head elevated. Tylenol given for HOLLAND, CPAP placed. HR sustaining 110's-120. Occasionally paced. Last BP 90/50. Pt. has been resting and presents less anxious.
[2024-10-02] MEDS: Levothyroxine Sodium 50 MCG TABLET PO (06:30)
[2024-10-02] MEDS: Venlafaxine HCl ER 150 MG CAP.ER.24H PO (08:47)
[2024-10-02] MEDS: Clopidogrel Bisulfate 75 MG TABLET PO (08:47)
[2024-10-02] MEDS: Furosemide 40 MG/4 ML VIAL IVPUSH (08:47)
[2024-10-02] MEDS: 0.9 % Sodium Chloride Flush 3 ML SYRINGE IVFLUSH ×2 (08:47→15:49)
[2024-10-02] MEDS: Digoxin 0.125 MG TABLET PO (08:47)
[2024-10-02] MEDS: Apixaban 5 MG TABLET PO (08:47)
[2024-10-02] MEDS: Empagliflozin 10 MG TABLET PO (08:47)
[2024-10-02] MEDS: Metoprolol Tartrate 100 MG TABLET 200 MG PO ×2 (08:47→20:21)
[2024-10-02] MEDS: Aspirin Enteric Coated 81 MG TABLET.DR PO (08:47)
[2024-10-02] MEDS: clonazePAM 0.5 MG TABLET PO ×2 (08:47→20:20)
--- NOTE | 2024-10-02 09:55 | P.CONGS_ITS ---
<Statement entered by Aleksandar Barfield MD - 10/02/24 14:27> Patient has gangrenous right great toe.. I have discussed the pathophysiology of peripheral vascular disease with the patient and the possibility of embolic disease.. I have also discussed risk factor modification. I have reviewed the patient's arterial testing which reveals tibial disease from CT scan at [facility]. Written report was reviewed only.. the patient would benefit from a right leg endovascular peripheral angiogram with possible angioplasty, stent, and/or atherectomy. This has been discussed in detail with the patient along with risks, benefits, and complications. This includes but is not limited to bleeding, infection, heart attack, need for emergent surgical repair, limb ischemia, blood vessel damage, bleeding, puncture, kidney injury, bruising, allergic reaction, and skin reaction. The patient demonstrates a clear understanding. We will schedule for the next appropriate time. Thank you for allowing us to assist in this patient's care. History of Present Illness Consult details Consult date: 10/02/24 Narrative: We are consulted on Antonia, a pleasant 61-year-old female patient, for concerns of great right gangrenous toe. She presented to the ER on 09/30 for heart palpitations with shortness of breath and chest tightness; her heart rate was in 130s-170s for the previous few days and they had been experiencing exertional dyspnea. She has a medical history significant for hypothyroidism, atrial fibrillation on Eliquis, SSS s/p pacemaker, history of endometrial cancer, mood disorder, and tobacco use disorder. She required IV Cardizem in the emergency room to convert her back to a sinus rhythm. We are consulted for a gangrenous toe, that was found on physical exam. The patient this morning states she only noticed it approximately week and a half ago; however, upon chart evaluation, she had mentioned that it was going on since summertime. She has been recently at [facility] for exacerbation of bipolar disorder. She recently had the pacemaker placed at [facility] on 09/12/2024. She states this morning that she quit smoking in 2007, and only smoked about a quarter of pack a day for the last 40 years or so. She states she is nondiabetic. She denies any history of substance use disorder. She did have an episode of shortness of breath on the overnight and did require CPAP. She is no longer on CPAP and/or oxygen this morning. She denies any shortness of breath or difficulty breathing. She states that she endorses pain in bilateral feet in the area of the gangrenous toe. She denies any injuries to her foot/toe. Review of Systems 2 Constitutional: Constitutional: Reports as per HPI and Denies weakness ENT: Reports Normal hearing present and Denies dizziness Cardiovascular: Cardiovascular: Reports as per HPI, Denies chest pain, Denies chest pain at rest, Denies chest pain with activity, Denies dyspnea and Denies dyspnea on exertion Respiratory: Respiratory: Reports as per HPI, Denies cough, Denies dyspnea and Denies dyspnea on exertion Gastrointestinal: Gastrointestinal: Reports as per HPI, Denies abdominal pain, Denies nausea and Denies vomiting Musculoskeletal: Musculoskeletal: Denies numbness Integumentary/Breasts: Skin/Breast: Reports as per HPI, Denies erythema and Denies wounds Neurologic: Reports Normal hearing present, Denies dizziness, Denies numbness, Denies Sensory deficit (Neuro) and Denies weakness Psychiatric: Psychiatric: Reports no additional psychiatric complaints Endocrine: Endocrine: Reports no additional endocrine complaints [facility] Past Medical History Medical History Mood disorder Atrial fibrillation Hypothyroidism Social History Social History Household Members: None Housing: [facility] Do you presently have visiting nurse or other home services: No Comment: Sitter Patient Tobacco Use Status: Never used Tobacco service: No Meds Allergies Allergy/AdvReac Type Severity Reaction Status Date / Time No Known Allergies Allergy Verified 09/30/24 01:21 Active Medications: Current Medications Acetaminophen (Acetaminophen 325 Mg Tablet) 650 mg PO Q6H PRN PRN Reason: Pain, Mild 1-3,fever,headache Last Admin: 10/02/24 01:13 Dose: 650 mg Al Hydroxide/Mg Hydroxide (Magnesium Hydrox/Alum Hydrox 30 Ml Oral.Susp) 30 ml PO QID PRN PRN Reason: GI upset Apixaban (Apixaban 5 Mg Tablet) 5 mg PO BID [facility] Last Admin: 10/02/24 08:47 Dose: 5 mg Aspirin (Aspirin Enteric Coated 81 Mg Tablet.Dr) 81 mg PO DAILY [facility] Last Admin: 10/02/24 08:47 Dose: 81 mg Atorvastatin Calcium (Atorvastatin Calcium 10 Mg Tablet) 10 mg PO BEDTIME [facility] Last Admin: 10/01/24 20:10 Dose: 10 mg Benzocaine (Throat Lozenge, Medicated Lozenge) 1 lozenge MUCOUS MEM Q2H PRN PRN Reason: Sore Throat Brimonidine Tartrate (Brimonidine Tartrate 0.2% Oph 5 Ml Bottle) 1 drop EYE- BOTH BID [facility] Last Admin: 10/01/24 20:11 Dose: 1 drop Calcium Carbonate (Calcium Carbonate 750 Mg Tab.Chew) 750 mg PO Q4H PRN PRN Reason: Heartburn Clonazepam (Clonazepam 0.5 Mg Tablet) 0.5 mg PO BID [facility] Last Admin: 10/02/24 08:47 Dose: 0.5 mg Clonazepam (Clonazepam 0.5 Mg Tablet) 0.5 mg PO DAILY PRN PRN Reason: severe anxiety or panic attack Clopidogrel Bisulfate (Clopidogrel Bisulfate 75 Mg Tablet) 75 mg PO DAILY [facility] Last Admin: 10/02/24 08:47 Dose: 75 mg Digoxin (Digoxin 0.125 Mg Tablet) 0.125 mg PO DAILY [facility]; Protocol Last Admin: 10/02/24 08:47 Dose: 0.125 mg Docusate Sodium (Docusate Sodium 100 Mg Capsule) 100 mg PO BID PRN PRN Reason: Constipation Empagliflozin (Empagliflozin 10 Mg Tablet) 10 mg PO DAILY [facility] Last Admin: 10/02/24 08:47 Dose: 10 mg Furosemide (Furosemide 40 Mg/4 Ml Vial) 40 mg IVPUSH DAILY [facility]; Protocol Last Admin: 10/02/24 08:47 Dose: 40 mg Guaifenesin (Guaifenesin La 600 Mg Tab.Er.12h) 1,200 mg PO BID PRN PRN Reason: Cough Hydroxyzine HCl (Hydroxyzine Hcl 50 Mg Tablet) 50 mg PO Q4H PRN PRN Reason: moderate to severe anxiety Latanoprost (Latanoprost 0.005 % Ophth Kristie 2.5 Ml Drops) 1 drop EYE-BOTH BEDTIME [facility] Last Admin: 10/01/24 20:11 Dose: 1 drop Levothyroxine Sodium (Levothyroxine Sodium 50 Mcg Tablet) 50 mcg PO DAILY@0600 [facility] Last Admin: 10/02/24 06:30 Dose: 50 mcg Loperamide HCl (Loperamide Hcl 2 Mg Capsule) 2 mg PO DAILY PRN PRN Reason: for each loose stool Magnesium Hydroxide (Milk Of Magnesia 30 Ml Oral.Susp) 30 ml PO DAILY PRN PRN Reason: Constipation Melatonin (Melatonin 3 Mg Tablet) 6 mg PO BEDTIME PRN PRN Reason: Insomnia Melatonin (Melatonin 3 Mg Tablet) 9 mg PO BEDTIME PRN PRN Reason: Insomnia Metoprolol Tartrate (Metoprolol Tartrate 100 Mg Tablet) 200 mg PO BID [facility]; Protocol Last Admin: 10/02/24 08:47 Dose: 200 mg Metoprolol Tartrate (Metoprolol Tartrate 5 Mg/5 Ml Vial) 5 mg IVPUSH Q6H PRN; Protocol PRN Reason: For Heart rate > 110 Nicotine (Nicotine 21 Mg Patch.Td24) 21 mg TRANSDERMA DAILY PRN PRN Reason: nicotine withdrawal Nicotine Polacrilex (Nicotine Polacrilex 2 Mg Gum) 2 mg BUCCAL Q2H PRN PRN Reason: Nicotine Cravings Ondansetron HCl (Ondansetron Hcl 4 Mg/2 Ml Vial) 4 mg IVPUSH Q8H PRN PRN Reason: Nausea and Vomiting Sodium Chloride (0.9 % Sodium Chloride Flush 3 Ml Syringe) 3 ml IVFLUSH QSHIFT [facility] Last Admin: 10/02/24 08:47 Dose: 3 ml Venlafaxine HCl (Venlafaxine Hcl Er 150 Mg Cap.Er.24h) 150 mg PO DAILY [facility] Last Admin: 10/02/24 08:47 Dose: 150 mg Home Medications ?Medication ?Instructions ?Recorded ?Confirmed ?Last Taken ?Type acetaminophen 325 mg tablet 650 mg PO Q4H PRN pain or fever 09/30/24 09/30/24 Unknown History aluminum-mag hydroxide-simethicone 30 ml PO QID PRN GI upset 09/30/24 09/30/24 Unknown History 200 mg-200 mg-20 mg/5 mL oral susp apixaban 5 mg tablet (Eliquis) 5 mg PO BID 09/30/24 09/30/24 Unknown History aspirin 81 mg tablet,delayed 81 mg PO DAILY 09/30/24 09/30/24 Unknown History release benzocaine 15 mg-menthol 3.6 mg 1 luiz mucous membrane Q2H PRN Sore 09/30/24 09/30/24 Unknown History lozenges Throat brimonidine 0.2 % eye drops 1 drp ophthalmic (eye) BID 09/30/24 09/30/24 Unknown History calcium carbonate 500 mg PO Q4H PRN Heartburn 09/30/24 09/30/24 Unknown History clonazepam 0.5 mg tablet 0.5 mg PO BID 09/30/24 09/30/24 Unknown History clonazepam 0.5 mg tablet 0.5 mg PO DAILY PRN severe anxiety 09/30/24 09/30/24 Unknown History or panic attack clopidogrel 75 mg tablet 75 mg PO DAILY 09/30/24 09/30/24 Unknown History digoxin 125 mcg (0.125 mg) tablet 125 mcg PO DAILY 09/30/24 09/30/24 Unknown History docusate sodium 100 mg capsule 100 mg PO BID PRN Constipation 09/30/24 09/30/24 Unknown History guaifenesin 600 mg tablet, 1,200 mg PO BID PRN Cough 09/30/24 09/30/24 Unknown History extended release 12 hr hydroxyzine pamoate 50 mg capsule 50 mg PO Q4H PRN moderate to 09/30/24 09/30/24 Unknown History severe anxiety ibuprofen 400 mg tablet 400 mg PO Q8H PRN bodyache, 09/30/24 09/30/24 Unknown History toothache, headache latanoprost 0.005 % eye drops 1 drp ophthalmic (eye) BEDTIME 09/30/24 09/30/24 Unknown History lenvatinib 10 mg/day (10 mg x 1) 10 mg PO DAILY 09/30/24 Unknown History capsule (Lenvima) levothyroxine 50 mcg tablet 50 mcg PO DAILY@0600 09/30/24 09/30/24 Unknown History loperamide 2 mg tablet 2 mg PO DAILY PRN for each loose 09/30/24 09/30/24 Unknown History stool melatonin 3 mg tablet 9 mg PO BEDTIME PRN Insomnia 09/30/24 09/30/24 Unknown History metoprolol tartrate 50 mg tablet 200 mg PO BID 09/30/24 09/30/24 Unknown History nicotine (polacrilex) 2 mg gum 2 mg buccal Q2H PRN nicotine 09/30/24 09/30/24 Unknown History withdrawal nicotine 21 mg/24 hr daily 1 patch transdermal DAILY PRN 09/30/24 09/30/24 Unknown History transdermal patch nicotine withdrawal ondansetron 4 mg disintegrating 4 mg PO Q6H PRN Nausea And Vomiting 09/30/24 09/30/24 Unknown History tablet simvastatin 20 mg tablet 20 mg PO BEDTIME 09/30/24 09/30/24 Unknown History venlafaxine 150 mg 150 mg PO DAILY 09/30/24 09/30/24 Unknown History capsule,extended release 24 hr Physical Exam 2 Vital Signs: Vital Signs: Last Vital Signs Temp 97.0 F 10/02/24 07:30 Pulse 105 H 10/02/24 07:30 Resp 16 10/02/24 07:30 BP 110/64 10/02/24 07:30 Pulse Ox 97 10/02/24 07:30 O2 Del Method Room Air 10/02/24 07:30 BMI result Body Mass Index 28.1 Const: General: comfortable and no acute distress O rientation/consciousness: patient oriented x3 HEENT: Ears: hearing grossly normal bilaterally Resp: Effort & Inspection: normal respiratory effort and able to speak in complete sentences Auscultation: clear to auscultation bilaterally Cardio: Rate: regular rate Rhythm: regular rhythm Heart sounds: S1 normal heart sound present and S2 normal heart sound present Bruits: no abdominal aortic bruits, no carotid bruits, no femoral bruits and no renal bruits GI: Palpation (GI): No Abdominal aortic bruit present Neuro: General: patient oriented x3 Cranial nerves: Yes Normal hearing present Sensory Exam: No Sensory deficit (Neuro) Extrem: Other: Right foot: Right great toe gangrenous to the base of the toe, circumferentially, with erythema below the gangrene. Not painful to palpation. Strong and palpable DP and PT pulses. Left foot: Small closed ulcerations noted on the plantar aspect of the great toe, surrounding the toenail on the 2nd and 3rd toes. Palpable DP and PT pulses. Results Labs 10/01/24 13:04 10/01/24 13:04 Labs: Abnormal lab results 10/01/24 Range/Units 13:04 BUN 26 H (9-16) mg/dL Short CBC 10/01/24 Range/Units 13:04 WBC 9.6 (4.8-10.8) X10*3/uL Hgb 14.2 (12.0-16.0) g/dl Hct 44.0 (37.0-47.0) % Plt Count 398 (160-400) X10*3/uL BMP 10/01/24 13:04 Sodium 141 Potassium 3.6 Chloride 103 Carbon Dioxide 26 BUN 26 H Creatinine 1.13 Calcium 9.2 All other labs normal. Assessment and Plan (1) Gangrene of toe of both feet: Status: Acute Plan We are consulted for Antonia for a gangrenous toe. She states this has been going on for a week and a half; however the other documentation as noting that has been going on since the summertime. We are able to review records from [facility] which revealed right greater than left peripheral artery disease. We have held her Jardiance and Eliquis and we will make her NPO at midnight for a right leg angio for tomorrow. I did discuss with her this morning that likely we will end up having to do an angio for further evaluation of her gangrenous toe. There was no wound care needed at this time, but if the patient is uncomfortable, it can be painted with Betadine and wrapped with a Kerlix wrap. Patient appears comfortable as is. We will continue to monitor. Thank you for the consult. If there are any questions or concerns, please do not hesitate to reach out to us. Procedures Date of Service Date of Service: 10/02/24
--- NOTE | 2024-10-02 10:03 | P.PNCA_ITS ---
Subjective Subjective Date of Service: 10/02/24 Interval history: Seen in follow-up. Patient is denying any clear-cut complaints like angina. However, she states that her whole body is hurting and essentially everywhere. Overnight, it seems he had complained of shortness of breath more so when lying flat and her crackles. She got CPAP according to note. Review of Systems Review of Systems Yes all other systems are reviewed and are negative Constitutional: Reports as per HPI and Reports no additional constitutional complaints Eyes: Reports as per HPI and Denies no additional eye complaints Denies system reviewed and no additional complaints, except as documented and Reports as per HPI Cardiovascular: Reports as per HPI, Reports no additional cardiovascular complaints, Denies acrocyanosis, Denies cool extremities, Denies chest pain, Denies leg edema, Denies lightheadedness, Denies palpitations and Denies dyspnea Respiratory: Reports as per HPI, Denies no additional respiratory complaints and Denies dyspnea Gastrointestinal: Reports as per HPI and Denies no additional gastrointestinal complaints Genitourinary: Reports as per HPI Musculoskeletal: Reports no additional musculoskeletal complaints and Reports as per HPI Skin/Breast: Reports system reviewed and no additional complaints, except as docu Reports system reviewed and no additional complaints, except as documented and Reports as per HPI Psychiatric: Reports no additional psychiatric complaints and Reports as per HPI Endocrine: Reports no additional endocrine complaints, Reports as per HPI and Denies palpitations Hematologic/Lymphatic: Reports no additional hematologic/lymphatic complaints and Reports as per HPI Allergic/Immunologic: Reports no additional allergic/immunologic complaints and Reports as per HPI Physical Exam Vital Signs: Last Vital Signs Temp 97.0 F 10/02/24 07:30 Pulse 105 H 10/02/24 07:30 Resp 16 10/02/24 07:30 BP 110/64 10/02/24 07:30 Pulse Ox 97 10/02/24 07:30 O2 Del Method Room Air 10/02/24 07:30 BMI result Body Mass Index 28.1 Const General: comfortable and no acute distress Orientation/consciousness: patient oriented x3 HEENT Other: Unremarkable Head: Yes normal to inspection Neck Neck: Yes normal visual inspection Chest Chest palpation & inspection: normal inspection of the chest Resp Other: Do not hear any significant crackles/rhonchi Cardio Palpation: normal PMI Heart sounds: S1 normal heart sound present, S2 normal heart sound present, no gallops, no murmurs and no rubs GI Palpation (GI): Soft to palpation Back/Spine/Pelvis Other: unremarkable Skin General skin exam: no rashes or lesions noted Neuro General: patient oriented x3 Extrem Other: Gangrenous changes in the toes. General: Yes normal to inspection Psych Mental Status: mental status grossly normal Objective Labs and Meds 10/01/24 13:04 10/01/24 13:04 Lab results: Laboratory Results - last 24 hr 10/01/24 13:04 WBC 9.6 RBC 5.05 Hgb 14.2 Hct 44.0 MCV 87.1 MCH 28.1 MCHC 32.3 RDW 14.5 Plt Count 398 MPV 11.3 Absolute Nucleated RBC 0.000 Nucleated RBC % (auto) 0.0 Sodium 141 Potassium 3.6 Chloride 103 Carbon Dioxide 26 Anion Gap 16 BUN 26 H Creatinine 1.13 Estim Creat Clear Calc 55.8 Estimated GFR 48 Random Glucose 96 Calcium 9.2 Progress Note: A&P Assessment and plan (1) Atrial fibrillation with rapid ventricular response: Status: Acute Assessment and Plan: Discussed with Dr.Paul Dudley, cardiac concrete engineering technician who actually implant with a pacemaker at [facility]. He stated to just continue on rate control medications as currently on. He did not want cardioversion done as he stated that the leads are new and might get dislodged. He will follow up in this clinic to decide on timing of cardioversion. Otherwise, continue Eliquis. With rates still remains fast, other options would be to go up on the digoxin dosing to 250 mcg daily or add amiodarone. To be decided. Check digoxin levels a.m.. Currently, ventricular rate about 100/Min. (2) Acute congestive heart failure: Status: Acute Assessment and Plan: In the echocardiogram, LVEF is 40-45%. 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 Diuretics. (3) Gangrene of toe of both feet: Status: Acute Assessment and Plan: Per discussion with cardiac EP as well as reviewing some images over secure text, it seems more dry currently. According to CTA at [facility], there is evidence of peripheral vascular disease. Additionally, there was question of possible metastasis from endometrial cancer. We will need to discuss with vascular surgery as well as Oncology. Time Spent With Patient Time: Total time managing care of this patient today ____ minutes. Progress Note: Quality Stroke Does the patient have a stroke diagnosis?: No Procedures Date of Service Date of Service: 10/02/24
[2024-10-02 10:57] LABS: MANUAL DIFF FLAG NO
[2024-10-02 11:14] LABS: Basophils Absolute Auto 0.1 X10*3/uL (0.0-0.2); Basophils Percent Auto 0.7 % (0-2); Eosinophils Absolute Auto 0.4 X10*3/uL (0.0-0.4); Eosinophils Percent Auto 5.9 % (0-4); Hemoglobin 13.5 g/dl (12.0-16.0); Imm Gran Abs Auto 0.03 X10*3/uL (0.00-0.03); Imm Gran Pct Auto 0.4 % (0.0-0.4); Lymphocytes Absolute Auto 0.5 X10*3/uL (1.2-4.9); Lymphocytes Percent Auto 6.3 % (20-40); Mean Corpuscular HGB Conc 32.1 g/dl (31.0-35.0); Monocytes Absolute Auto 0.8 X10*3/uL (0.1-1.2); Neutrophils Absolute Auto 5.4 x10*3/uL (2.0-8.3); Neutrophils Percent Auto 75.7 % (45-73); Platelet Count 362 X10*3/uL (160-400); Red Blood Count 4.83 X10*6/uL (4.20-5.50); Red Cell Distribution Width 14.4 % (11.0-16.0); White Blood Count 7.1 X10*3/uL (4.8-10.8)
[2024-10-02 11:19] LABS: Blood Urea Nitrogen 26 mg/dL (9-16); Creatinine Clr Calc Pharmacy 62.4; Estimated Glomerular Filt Rate 55
[2024-10-02] MEDS: Brimonidine Tartrate 0.2% Oph 5 ML BOTTLE 1 DROP EYE-BOTH ×2 (11:49→20:23)
[2024-10-02] MEDS: 0.9 % Sodium Chloride 1,000 ML 100 ML IVCONT ×2 (11:49→21:39)
--- NOTE | 2024-10-02 12:09 | P.PNIM_ITS ---
Subjective Subjective Date of Service: 10/02/24 Interval History: Patient had an epsidode of shortness of breath overnight, and episodes of hypotension and shortness of breath but overall better this today, heart rate is better, and blood pressure improvedf HR is within normal now, and blood pressure improved and reporting no shotness of breath. Physical Exam 2 Vital Signs: Vital Signs: Last Vital Signs Temp 98.4 F 10/02/24 11:40 Pulse 77 10/02/24 11:40 Resp 16 10/02/24 11:40 BP 124/60 10/02/24 11:40 Pulse Ox 98 10/02/24 11:40 O2 Del Method Room Air 10/02/24 11:40 BMI result Body Mass Index 28.1 Const: Other: General: AO X 3, no acute distress Resp: CTA bilateral CVS: S1,S2, iregular iregular GI: +BS, NT, no distention Skin: 09/23 10/02 Neuro: motor grossly intact Psych: appropriate affect Objective Data Active Medications Acetaminophen (Acetaminophen 325 Mg Tablet) 650 mg PO Q6H PRN PRN Reason: Pain, Mild 1-3,fever,headache Last Admin: 10/02/24 01:13 Dose: 650 mg Documented By: JANET Al Hydroxide/Mg Hydroxide (Magnesium Hydrox/Alum Hydrox 30 Ml Oral.Susp) 30 ml PO QID PRN PRN Reason: GI upset Apixaban (Apixaban 5 Mg Tablet) 5 mg PO BID [facility] Last Admin: 10/02/24 08:47 Dose: 5 mg Documented By: ANTREI Aspirin (Aspirin Enteric Coated 81 Mg Tablet.) 81 mg PO DAILY [facility] Last Admin: 10/02/24 08:47 Dose: 81 mg Documented By: JANET Atorvastatin Calcium (Atorvastatin Calcium 10 Mg Tablet) 10 mg PO BEDTIME [facility] Last Admin: 10/01/24 20:10 Dose: 10 mg Documented By: ANTREI Benzocaine (Throat Lozenge, Medicated Lozenge) 1 lozenge MUCOUS MEM Q2H PRN PRN Reason: Sore Throat Brimonidine Tartrate (Brimonidine Tartrate 0.2% Oph 5 Ml Bottle) 1 drop EYE- BOTH BID [facility] Last Admin: 10/02/24 11:49 Dose: 1 drop Documented By: ANTOIC Calcium Carbonate (Calcium Carbonate 750 Mg Tab.Chew) 750 mg PO Q4H PRN PRN Reason: Heartburn Clonazepam (Clonazepam 0.5 Mg Tablet) 0.5 mg PO BID [facility] Last Admin: 10/02/24 08:47 Dose: 0.5 mg Documented By: ANTREI Clonazepam (Clonazepam 0.5 Mg Tablet) 0.5 mg PO DAILY PRN PRN Reason: severe anxiety or panic attack Clopidogrel Bisulfate (Clopidogrel Bisulfate 75 Mg Tablet) 75 mg PO DAILY [facility] Last Admin: 10/02/24 08:47 Dose: 75 mg Documented By: ANTREI Digoxin (Digoxin 0.125 Mg Tablet) 0.125 mg PO DAILY [facility]; Protocol Last Admin: 10/02/24 08:47 Dose: 0.125 mg Documented By: JANET Docusate Sodium (Docusate Sodium 100 Mg Capsule) 100 mg PO BID PRN PRN Reason: Constipation Empagliflozin (Empagliflozin 10 Mg Tablet) 10 mg PO DAILY [facility] Last Admin: 10/02/24 08:47 Dose: 10 mg Documented By: JANET Furosemide (Furosemide 40 Mg/4 Ml Vial) 40 mg IVPUSH DAILY [facility]; Protocol Last Admin: 10/02/24 08:47 Dose: 40 mg Documented By: JANET Guaifenesin (Guaifenesin La 600 Mg Tab.Er.12h) 1,200 mg PO BID PRN PRN Reason: Cough Hydroxyzine HCl (Hydroxyzine Hcl 50 Mg Tablet) 50 mg PO Q4H PRN PRN Reason: moderate to severe anxiety Sodium Chloride (Ns) 1,000 mls @ 100 mls/hr IVCONT .Q10H [facility] Last Admin: 10/02/24 11:49 Dose: 100 mls/hr Documented By: JANET Latanoprost (Latanoprost 0.005 % Ophth Kristie 2.5 Ml Drops) 1 drop EYE-BOTH BEDTIME [facility] Last Admin: 10/01/24 20:11 Dose: 1 drop Documented By: JANET Levothyroxine Sodium (Levothyroxine Sodium 50 Mcg Tablet) 50 mcg PO DAILY@0600 [facility] Last Admin: 10/02/24 06:30 Dose: 50 mcg Documented By: ANTREI Loperamide HCl (Loperamide Hcl 2 Mg Capsule) 2 mg PO DAILY PRN PRN Reason: for each loose stool Magnesium Hydroxide (Milk Of Magnesia 30 Ml Oral.Susp) 30 ml PO DAILY PRN PRN Reason: Constipation Melatonin (Melatonin 3 Mg Tablet) 6 mg PO BEDTIME PRN PRN Reason: Insomnia Melatonin (Melatonin 3 Mg Tablet) 9 mg PO BEDTIME PRN PRN Reason: Insomnia Metoprolol Tartrate (Metoprolol Tartrate 100 Mg Tablet) 200 mg PO BID [facility]; Protocol Last Admin: 10/02/24 08:47 Dose: 200 mg Documented By: JANET Metoprolol Tartrate (Metoprolol Tartrate 5 Mg/5 Ml Vial) 5 mg IVPUSH Q6H PRN; Protocol PRN Reason: For Heart rate > 110 Nicotine (Nicotine 21 Mg Patch.Td24) 21 mg TRANSDERMA DAILY PRN PRN Reason: nicotine withdrawal Nicotine Polacrilex (Nicotine Polacrilex 2 Mg Gum) 2 mg BUCCAL Q2H PRN PRN Reason: Nicotine Cravings Ondansetron HCl (Ondansetron Hcl 4 Mg/2 Ml Vial) 4 mg IVPUSH Q8H PRN PRN Reason: Nausea and Vomiting Sodium Chloride (0.9 % Sodium Chloride Flush 3 Ml Syringe) 3 ml IVFLUSH QSHIFT [facility] Last Admin: 10/02/24 08:47 Dose: 3 ml Documented By: JANET Venlafaxine HCl (Venlafaxine Hcl Er 150 Mg Cap.Er.24h) 150 mg PO DAILY [facility] Last Admin: 10/02/24 08:47 Dose: 150 mg Documented By: JANET Labs 10/02/24 10:52 10/02/24 10:52 Labs: Laboratory Results - last 24 hr 10/01/24 10/02/24 13:04 10:52 MCV 87.1 87.0 MCH 28.1 28.0 MCHC 32.3 32.1 RDW 14.5 14.4 Plt Count 398 362 MPV 11.3 11.0 Immature Gran % (Auto) 0.4 Neut % (Auto) 75.7 H Lymph % (Auto) 6.3 L [place] % (Auto) 11.0 Eos % (Auto) 5.9 H Baso % (Auto) 0.7 Lymph # (Auto) 0.5 L [place] # (Auto) 0.8 Eos # (Auto) 0.4 Baso # (Auto) 0.1 Abs Immat Gran (auto) 0.03 Absolute Neuts (auto) 5.4 Absolute Nucleated RBC 0.000 0.000 Nucleated RBC % (auto) 0.0 0.0 Anion Gap 16 Estim Creat Clear Calc 55.8 62.4 Estimated GFR 48 55 Random Glucose 96 Calcium 9.2 Assessment and Plan (1) Atrial fibrillation with rapid ventricular response: Status: Acute (2) Congestive heart failure: Status: Acute (3) Cardiac pacemaker in situ: Status: Acute (4) Hypothyroidism: Status: Acute (5) Gangrene of toe of both feet: Status: Acute Plan 69/F with pertinent history of hypothyroidism, history of endometrial cancer, mood disorder, tobacco use disorder, atrial fibrillation on Eliquis, had a pacemaker at [facility] on 09/12/24 after presenting with syncope and and HR in 20s and 30, and had a pacemaker inserted for sick sinus syndrome, patient was also noted at that time to have gangrenous toes--which she states has been ongoing since last summer, following pacemaker, she was sent to [facility] for Bipolar. She was sent to the ED on this occasion due to palpitations and shortness of breath and admitted for AFIB with RVR and Heart failure and noted to have a gangrene of the foot that has been ongoin AFib with RVR. Variable rate, in the ED was treated with IV cardizem and has been restarted on home metoprolol 200m g twice daily, digoxin, and Eliquis. Cardiology is following. PRN IV metoprolol, check digoxin level. No candiate for cardioversion per her EP cushion stuffer as can disloged recent pace maker leads. HypOthyroidism On Synthroid HFrEF, possible tachycardia mediated. continue Lasix continue jardianc HLD--statin CAD/PAD on plavix, ASA, eliquis, metoprolol PAD with gangrene of toe, not new but reported worse--see pic above vascular consult, for angiogram tomorrow 10/03. Mood disorder/Bipolar Continue home mood stabilizers CARE consult before discharge History of Endometrial cancer , CT angiogram at [facility] on 09/23 showed thickening of vaginal cuffing suggestive of metastic disease and will need to follow up with her oncologist Tobacco use disorder NRT while in the hospital DVT prophylaxis: Eliquis Full code Quality Stroke Does the patient have a stroke diagnosis?: No VTE Prior VTE?: No VTE Risk Level:: Medical - moderate - high VTE Device Contraindication: Treatment Not Indicated VTE Drug Contraindication: N/A - Med Ordered
[2024-10-02 12:59] LABS: Digoxin 0.5 ng/mL (0.8-2.0)
--- NOTE | 2024-10-02 15:23 | MHC.CM.PN ---
Per rounds and EMR review, pt is not ready to DC, she will have CARE consult and surgical consult. DCP: home either self care or with services. CM to follow for DC needs.
[2024-10-02] MEDS: hydrOXYzine HCL 50 MG TABLET PO (17:08)
[2024-10-02] MEDS: guaiFENesin LA 600 MG TAB.ER.12H 1200 MG PO (17:08)
[2024-10-02] MEDS: Throat Lozenge, Medicated LOZENGE 1 LOZENGE MUCOUS MEM (17:09)
[2024-10-02] MEDS: Atorvastatin Calcium 10 MG TABLET PO (20:20)
[2024-10-02] MEDS: Latanoprost 0.005 % Ophth Sol 2.5 ML DROPS 1 DROP EYE-BOTH (20:23)
--- NOTE | 2024-10-02 22:57 | PC.RT ---
pt not in no resp distress, nor does she wear a cpap at home and she does not wan to wear it anyways. pt rr 16 sats 97% no resp distress noted. Cpap was ordered acutely last night. pt does not need it at this time.
[2024-10-03] MEDS: Metoprolol Tartrate 5 MG/5 ML VIAL IVPUSH ×2 (00:18→06:40)
--- NOTE | 2024-10-03 02:54 | PM.EVENT ---
Event Note Date of Service: 10/03/24 Event Note: Patient with decompensated CHF. Fluids ordered earlier by surgical team and patient is reporting increasing shortness of breath. Will stop fluids and order additional dose of IV Lasix. Time Spent With Patient Time: Total time managing care of this patient today ____ minutes.
[2024-10-03] MEDS: Furosemide 40 MG/4 ML VIAL IVPUSH ×2 (03:06→09:51)
[2024-10-03 03:23] VITALS: BP 112/80; PULSE 123; RESP 18; TEMP 36.6; O2SAT 95
[2024-10-03] MEDS: Levothyroxine Sodium 50 MCG TABLET PO (06:40)
[2024-10-03 07:32] VITALS: BP 124/68; PULSE 100; RESP 17; TEMP 37; O2SAT 97
[2024-10-03] MEDS: Metoprolol Tartrate 100 MG TABLET 200 MG PO ×2 (07:39→20:45)
[2024-10-03] MEDS: Digoxin 0.5 MG/2 ML AMPUL 0.25 MG IVPUSH (07:50)
[2024-10-03 08:44] LABS: Anion Gap 15 (12-20); Blood Urea Nitrogen 22 mg/dL (9-16); Calcium 9.3 mg/dL (8.4-10.2); Carbon Dioxide 23 mmol/L (22-29); Chloride 105 mmol/L (96-108); Creatinine Clr Calc Pharmacy 69.3; Estimated Glomerular Filt Rate > 60; Glucose Random 104 mg/dL (60-115); Magnesium 1.9 mg/dL (1.6-2.6); Potassium 3.3 mmol/L (3.3-5.1); Sodium 140 mmol/L (135-145)
--- NOTE | 2024-10-03 09:18 | MHC.CM.PN ---
EMR REVIEWED, PT W/PALPITATIONS/SOB/R LEG PVD, PER SURGICAL NOTE PLAN FOR RLE ANGIOGRAM TODAY, NO PLAN FOR DC AT THIS TIME, CM WILL CONT TO FOLLOW DC NEED.
[2024-10-03] MEDS: clonazePAM 0.5 MG TABLET PO ×2 (09:50→20:45)
[2024-10-03] MEDS: Aspirin Enteric Coated 81 MG TABLET.DR PO (09:50)
[2024-10-03] MEDS: Digoxin 0.125 MG TABLET PO (09:50)
[2024-10-03] MEDS: Venlafaxine HCl ER 150 MG CAP.ER.24H PO (09:50)
[2024-10-03] MEDS: Clopidogrel Bisulfate 75 MG TABLET PO (09:50)
[2024-10-03] MEDS: Acetaminophen 325 MG TABLET 650 MG PO ×2 (09:51→23:46)
[2024-10-03] MEDS: Brimonidine Tartrate 0.2% Oph 5 ML BOTTLE 1 DROP EYE-BOTH ×2 (09:51→20:45)
[2024-10-03] MEDS: 0.9 % Sodium Chloride Flush 3 ML SYRINGE IVFLUSH ×2 (09:57→20:45)
--- NOTE | 2024-10-03 10:32 | P.PNCA_ITS ---
Subjective Subjective Date of Service: 10/03/24 Interval history: She does not have any clear-cut symptoms. Supposedly, to go for angiogram today for lower extremity issues but could be postponed because of fast heart rates. However, she is not having any active cardiac symptoms. Review of Systems Review of Systems Yes all other systems are reviewed and are negative Constitutional: Reports as per HPI and Reports no additional constitutional complaints Eyes: Reports as per HPI and Denies no additional eye complaints Denies system reviewed and no additional complaints, except as documented and Reports as per HPI Cardiovascular: Reports as per HPI, Reports no additional cardiovascular complaints, Denies acrocyanosis, Denies cool extremities, Denies chest pain, Denies leg edema, Denies lightheadedness, Denies palpitations and Denies dyspnea Respiratory: Reports as per HPI, Denies no additional respiratory complaints and Denies dyspnea Gastrointestinal: Reports as per HPI and Denies no additional gastrointestinal complaints Genitourinary: Reports as per HPI Musculoskeletal: Reports no additional musculoskeletal complaints and Reports as per HPI Skin/Breast: Reports system reviewed and no additional complaints, except as docu Reports system reviewed and no additional complaints, except as documented and Reports as per HPI Psychiatric: Reports no additional psychiatric complaints and Reports as per HPI Endocrine: Reports no additional endocrine complaints, Reports as per HPI and Denies palpitations Hematologic/Lymphatic: Reports no additional hematologic/lymphatic complaints and Reports as per HPI Allergic/Immunologic: Reports no additional allergic/immunologic complaints and Reports as per HPI Physical Exam Vital Signs: Last Vital Signs Temp 98.6 F 10/03/24 07:32 Pulse 100 10/03/24 07:32 Resp 17 10/03/24 07:32 BP 124/68 10/03/24 07:32 Pulse Ox 97 10/03/24 07:32 O2 Del Method Room Air 10/03/24 07:32 BMI result Body Mass Index 28.1 Const General: comfortable and no acute distress Orientation/consciousness: patient oriented x3 HEENT Other: Unremarkable Head: Yes normal to inspection Neck Neck: Yes normal visual inspection Chest Chest palpation & inspection: normal inspection of the chest Resp Other: Do not hear any significant crackles/rhonchi Auscultation: clear to auscultation bilaterally Cardio Palpation: normal PMI Heart sounds: S1 normal heart sound present, S2 normal heart sound present, no gallops, no murmurs and no rubs GI Palpation (GI): Soft to palpation Back/Spine/Pelvis Other: unremarkable Skin General skin exam: no rashes or lesions noted Neuro General: patient oriented x3 Extrem Other: Gangrenous changes in the toes. General: Yes normal to inspection Psych Mental Status: mental status grossly normal Objective Labs and Meds 10/02/24 10:52 10/03/24 08:06 Lab results: Laboratory Results - last 24 hr 10/02/24 10/02/24 10/03/24 10:52 12:36 08:06 WBC 7.1 RBC 4.83 Hgb 13.5 Hct 42.0 MCV 87.0 MCH 28.0 MCHC 32.1 RDW 14.4 Plt Count 362 MPV 11.0 Immature Gran % (Auto) 0.4 Neut % (Auto) 75.7 H Lymph % (Auto) 6.3 L [place] % (Auto) 11.0 Eos % (Auto) 5.9 H Baso % (Auto) 0.7 Lymph # (Auto) 0.5 L [place] # (Auto) 0.8 Eos # (Auto) 0.4 Baso # (Auto) 0.1 Abs Immat Gran (auto) 0.03 Absolute Neuts (auto) 5.4 Absolute Nucleated RBC 0.000 Nucleated RBC % (auto) 0.0 Sodium 140 Potassium 3.3 Chloride 105 Carbon Dioxide 23 Anion Gap 15 BUN 26 H 22 H Creatinine 1.01 0.91 Estim Creat Clear Calc 62.4 69.3 Estimated GFR 55 > 60 Random Glucose 104 Calcium 9.3 Magnesium 1.9 Digoxin 0.5 L Progress Note: A&P Assessment and plan (1) Atrial fibrillation with rapid ventricular response: Status: Acute Assessment and Plan: Continue metoprolol at the current dose as it is already quite high. As rate is still fast, we can stop the digoxin and rather use amiodarone see if that will slow her down. Continue anticoagulation with minimal interruption for the procedure. (2) Acute congestive heart failure: Status: Acute Assessment and Plan: In the echocardiogram, LVEF is 40-45%. 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 Overnight, it seems she got some diuretics. Also per notes, fluids were stopped. Currently, does not appear to be in about not failure as she is lying down flat and not short of breath. However, with rapid heart rates, there is increased chance of developing acute heart failure. (3) Gangrene of toe of both feet: Status: Acute Assessment and Plan: Plan for angiogram per vascular. Time Spent With Patient Time: Total time managing care of this patient today ____ minutes. Progress Note: Quality Stroke Does the patient have a stroke diagnosis?: No Procedures Date of Service Date of Service: 10/03/24
[2024-10-03] MEDS: Magnesium Sulfate/H2O 2 GM/50 ML PIGGYBACK IV (11:06)
--- NOTE | 2024-10-03 11:19 | HO.VASCPN ---
Subjective Subjective Date of Service: 10/03/24 Interval history: Antonia is doing okay this morning. She has no new concerns. She denies shortness of breath, difficulty breathing or chest pain. She is resting comfortably in bed. Physical Exam Vital Signs: Vital Signs: Last Vital Signs Temp 98.6 F 10/03/24 07:32 Pulse 100 10/03/24 07:32 Resp 17 10/03/24 07:32 BP 124/68 10/03/24 07:32 Pulse Ox 97 10/03/24 07:32 O2 Del Method Room Air 10/03/24 07:32 BMI result Body Mass Index 28.1 Const: General: comfortable and no acute distress Orientation/consciousness: patient oriented x3 HEENT: Ears: hearing grossly normal bilaterally Resp: Effort & Inspection: normal respiratory effort and able to speak in complete sentences Auscultation: clear to auscultation bilaterally Cardio: Rate: regular rate Rhythm: regular rhythm Heart sounds: S1 normal heart sound present and S2 normal heart sound present Bruits: no abdominal aortic bruits, no carotid bruits, no femoral bruits and no renal bruits GI: Palpation (GI): No Abdominal aortic bruit present Neuro: General: patient oriented x3 Cranial nerves: Yes CN's II-XII intact bilaterally Extrem: Other: Right foot: Right great toe gangrenous to the base of the toe, circumferentially, with erythema below the gangrene. Not painful to palpation. Strong and palpable DP and PT pulses. Left foot: Small closed ulcerations noted on the plantar aspect of the great toe, surrounding the toenail on the 2nd and 3rd toes. Palpable DP and PT pulses. Progress Note: A&P Assessment and plan (1) Gangrene of toe of both feet: Status: Acute Assessment and Plan: Antonia remains stable from a vascular standpoint. We are going to take her for an angiogram today; however, she continues to have issues with congestive heart failure along with AFib with RVR. At this point, the toe is participating with dry gangrene and there is no acute infection noted. I did discuss this with the patient today as well. We will continue to monitor. From a vascular standpoint, the best course would be to follow up with her outpatient. If there are any questions or concerns, please do not hesitate to reach out to us. Time Spent With Patient Time: Total time managing care of this patient today ____ minutes. Procedures Date of Service Date of Service: 10/03/24 Quality Stroke Does the patient have a stroke diagnosis?: No VTE Prior VTE?: No VTE Risk Level:: Medical - moderate - high VTE Device Contraindication: Treatment Not Indicated VTE Drug Contraindication: N/A - Med Ordered
[2024-10-03 12:00] VITALS: BP 116/68; PULSE 105; RESP 17; TEMP 36.3; O2SAT 98
[2024-10-03] MEDS: Amiodarone HCL 200 MG TABLET 400 MG PO ×2 (12:21→20:45)
--- NOTE | 2024-10-03 14:21 | HO.PM.IMPN ---
Subjective Subjective Date of Service: 10/03/24 Interval History: seen and evaluated this morning HR elevated 120-140s Angiogram cancelled No other events Review of Systems Review of Systems: Yes all other systems are reviewed and are negative Physical Exam Vital Signs: Vital Signs: Last Vital Signs Temp 97.3 F 10/03/24 12:00 Pulse 105 H 10/03/24 12:00 Resp 17 10/03/24 12:00 BP 116/68 10/03/24 12:00 Pulse Ox 98 10/03/24 12:00 O2 Del Method Room Air 10/03/24 12:00 BMI result Body Mass Index 28.1 Const: Other: Constitutional : Awake, interactive, not in distress Neck : Normal inspection, Supple Cardiovascular : irregular irregular , no JVP, trace lower extremity edema, tachycardia Respiratory : good bilateral air entry, no crackles, wheezes or rhonchi Gastrointestinal: soft, lax, Normal bowel sounds, Non tender Skin : Warm, Dry, right big toe gangrene Neurological : Alert & oriented x3, No focal deficit Objective Data Active Medications Acetaminophen (Acetaminophen 325 Mg Tablet) 650 mg PO Q6H PRN PRN Reason: Pain, Mild 1-3,fever,headache Last Admin: 10/03/24 09:51 Dose: 650 mg Documented By: BIANCA Al Hydroxide/Mg Hydroxide (Magnesium Hydrox/Alum Hydrox 30 Ml Oral.Susp) 30 ml PO QID PRN PRN Reason: GI upset Amiodarone HCl (Amiodarone Hcl 200 Mg Tablet) 400 mg PO BID [facility] Last Admin: 10/03/24 12:21 Dose: 400 mg Documented By: BIANCA Apixaban (Apixaban 5 Mg Tablet) 5 mg PO BID [facility] Last Admin: 10/02/24 08:47 Dose: 5 mg Documented By: ANTOIC Aspirin (Aspirin Enteric Coated 81 Mg Tablet.Dr) 81 mg PO DAILY [facility] Last Admin: 10/03/24 09:50 Dose: 81 mg Documented By: BIANCA Atorvastatin Calcium (Atorvastatin Calcium 10 Mg Tablet) 10 mg PO BEDTIME [facility] Last Admin: 10/02/24 20:20 Dose: 10 mg Documented By: FABIOLA-CONNMena Benzocaine (Throat Lozenge, Medicated Lozenge) 1 lozenge MUCOUS MEM Q2H PRN PRN Reason: Sore Throat Last Admin: 10/02/24 17:09 Dose: 1 lozenge Documented By: MARION Brimonidine Tartrate (Brimonidine Tartrate 0.2% Oph 5 Ml Bottle) 1 drop EYE-BOTH BID [facility] Last Admin: 10/03/24 09:51 Dose: 1 drop Documented By: BIANCA Calcium Carbonate (Calcium Carbonate 750 Mg Tab.Chew) 750 mg PO Q4H PRN PRN Reason: Heartburn Clonazepam (Clonazepam 0.5 Mg Tablet) 0.5 mg PO BID [facility] Last Admin: 10/03/24 09:50 Dose: 0.5 mg Documented By: BIANCA Clonazepam (Clonazepam 0.5 Mg Tablet) 0.5 mg PO DAILY PRN PRN Reason: severe anxiety or panic attack Clopidogrel Bisulfate (Clopidogrel Bisulfate 75 Mg Tablet) 75 mg PO DAILY [facility] Last Admin: 10/03/24 09:50 Dose: 75 mg Documented By: BIANCA Digoxin (Digoxin 0.125 Mg Tablet) 0.25 mg PO DAILY [facility]; Protocol Docusate Sodium (Docusate Sodium 100 Mg Capsule) 100 mg PO BID PRN PRN Reason: Constipation Empagliflozin (Empagliflozin 10 Mg Tablet) 10 mg PO DAILY [facility] Last Admin: 10/02/24 08:47 Dose: 10 mg Documented By: ANTOIC Furosemide (Furosemide 40 Mg/4 Ml Vial) 40 mg IVPUSH DAILY [facility]; Protocol Last Admin: 10/03/24 09:51 Dose: 40 mg Documented By: BIANCA Guaifenesin (Guaifenesin La 600 Mg Tab.Er.12h) 1,200 mg PO BID PRN PRN Reason: Cough Last Admin: 10/02/24 17:08 Dose: 1,200 mg Documented By: MARION Hydroxyzine HCl (Hydroxyzine Hcl 50 Mg Tablet) 50 mg PO Q4H PRN PRN Reason: moderate to severe anxiety Last Admin: 10/02/24 17:08 Dose: 50 mg Documented By: MARION Latanoprost (Latanoprost 0.005 % Ophth Kristie 2.5 Ml Drops) 1 drop EYE-BOTH BEDTIME [facility] Last Admin: 10/02/24 20:23 Dose: 1 drop Documented By: AIMEE Levothyroxine Sodium (Levothyroxine Sodium 50 Mcg Tablet) 50 mcg PO DAILY@0600 [facility] Last Admin: 10/03/24 06:40 Dose: 50 mcg Documented By: AIMEE Loperamide HCl (Loperamide Hcl 2 Mg Capsule) 2 mg PO DAILY PRN PRN Reason: for each loose stool Magnesium Hydroxide (Milk Of Magnesia 30 Ml Oral.Susp) 30 ml PO DAILY PRN PRN Reason: Constipation Melatonin (Melatonin 3 Mg Tablet) 6 mg PO BEDTIME PRN PRN Reason: Insomnia Melatonin (Melatonin 3 Mg Tablet) 9 mg PO BEDTIME PRN PRN Reason: Insomnia Metoprolol Tartrate (Metoprolol Tartrate 100 Mg Tablet) 200 mg PO BID [facility]; Protocol Last Admin: 10/03/24 07:39 Dose: 200 mg Documented By: BIANCA Metoprolol Tartrate (Metoprolol Tartrate 5 Mg/5 Ml Vial) 5 mg IVPUSH Q6H PRN; Protocol PRN Reason: For Heart rate > 110 Last Admin: 10/03/24 06:40 Dose: 5 mg Documented By: AIMEE Nicotine (Nicotine 21 Mg Patch.Td24) 21 mg TRANSDERMA DAILY PRN PRN Reason: nicotine withdrawal Nicotine Polacrilex (Nicotine Polacrilex 2 Mg Gum) 2 mg BUCCAL Q2H PRN PRN Reason: Nicotine Cravings Ondansetron HCl (Ondansetron Hcl 4 Mg/2 Ml Vial) 4 mg IVPUSH Q8H PRN PRN Reason: Nausea and Vomiting Sodium Chloride (0.9 % Sodium Chloride Flush 3 Ml Syringe) 3 ml IVFLUSH QSHIFT [facility] Last Admin: 10/03/24 09:57 Dose: 3 ml Documented By: BIANCA Venlafaxine HCl (Venlafaxine Hcl Er 150 Mg Cap.Er.24h) 150 mg PO DAILY [facility] Last Admin: 10/03/24 09:50 Dose: 150 mg Documented By: BIANCA Labs 10/02/24 10:52 10/03/24 08:06 Labs: Laboratory Results - last 24 hr 10/03/24 08:06 Anion Gap 15 Estim Creat Clear Calc 69.3 Estimated GFR > 60 Random Glucose 104 Calcium 9.3 Magnesium 1.9 Assessment and Plan (1) Acute congestive heart failure: Status: Acute (2) Gangrene of toe of both feet: Status: Acute (3) Atrial fibrillation with rapid ventricular response: Status: Acute Plan 69/F with pertinent history of hypothyroidism, history of endometrial cancer, mood disorder, tobacco use disorder, atrial fibrillation on Eliquis, had a pacemaker at [facility] on 09/12/24 after presenting with syncope and and HR in 20s and 30, and had a pacemaker inserted for sick sinus syndrome, patient was also noted at that time to have gangrenous toes--which she states has been ongoing since last summer, following pacemaker, she was sent to [facility] for Bipolar. She was sent to the ED on this occasion due to palpitations and shortness of breath and admitted for AFIB with RVR and Heart failure and noted to have a gangrene of the foot that has been ongoin AFib with RVR. Variable rate home metoprolol 200m g twice daily, load digoxin IV and increase daily to 0.25, Continue Eliquis. Cardiology following. No candiate for cardioversion per her EP top closer as can disloged recent pace maker leads. Load Amiodarone PRN Metoprolol as needed Keep on Tele PAD with gangrene of toes reported worse but looks stable vascular consult, for angiogram as outpatient HypOthyroidism On Synthroid HFrEF, possible tachycardia mediated. continue Lasix continue jardianc HLD--statin CAD/PAD on plavix, ASA, eliquis, metoprolol Mood disorder/Bipolar Continue home mood stabilizers CARE consult before discharge History of Endometrial cancer CT angiogram at [facility] on 09/23 showed thickening of vaginal cuffing suggestive of metastic disease and will need to follow up with her oncologist Tobacco use disorder NRT while in the hospital DVT prophylaxis: Eliquis Full code The patient will need overnight stay for Afib w RvR control on IV and PO medications with cardiology follow up Quality Stroke Does the patient have a stroke diagnosis?: No VTE Prior VTE?: No VTE Risk Level:: Medical - moderate - high VTE Device Contraindication: Treatment Not Indicated VTE Drug Contraindication: N/A - Med Ordered
[2024-10-03 15:21] VITALS: BP 110/64; PULSE 86; RESP 17; TEMP 36.1; O2SAT 96
[2024-10-03 20:00] VITALS: BP 98/61; PULSE 83; RESP 16; TEMP 37.1; O2SAT 96
[2024-10-03] MEDS: Atorvastatin Calcium 10 MG TABLET PO (20:45)
[2024-10-03] MEDS: Latanoprost 0.005 % Ophth Sol 2.5 ML DROPS 1 DROP EYE-BOTH (20:45)
[2024-10-04] VITALS (8 sets, daily range): BP systolic 94–139; BP diastolic 56–76; PULSE 56–124; RESP 16–20; TEMP 36.1–37; O2SAT 92–96
[2024-10-04] MEDS: Melatonin 3 MG TABLET 6 MG PO (02:12)
[2024-10-04] MEDS: Levothyroxine Sodium 50 MCG TABLET PO (05:17)
[2024-10-04] MEDS: Brimonidine Tartrate 0.2% Oph 5 ML BOTTLE 1 DROP EYE-BOTH ×2 (08:17→20:09)
[2024-10-04] MEDS: clonazePAM 0.5 MG TABLET PO ×3 (08:18→20:03)
[2024-10-04] MEDS: Clopidogrel Bisulfate 75 MG TABLET PO (08:18)
[2024-10-04] MEDS: Venlafaxine HCl ER 150 MG CAP.ER.24H PO (08:18)
[2024-10-04] MEDS: Aspirin Enteric Coated 81 MG TABLET.DR PO (08:18)
[2024-10-04] MEDS: Furosemide 40 MG/4 ML VIAL IVPUSH (08:18)
[2024-10-04] MEDS: Digoxin 0.125 MG TABLET 0.25 MG PO (08:19)
[2024-10-04] MEDS: Metoprolol Tartrate 100 MG TABLET 200 MG PO ×2 (08:19→20:03)
[2024-10-04] MEDS: Amiodarone HCL 200 MG TABLET 400 MG PO ×2 (08:19→20:03)
[2024-10-04] MEDS: 0.9 % Sodium Chloride Flush 3 ML SYRINGE IVFLUSH ×3 (08:28→20:09)
[2024-10-04 08:31] LABS: MANUAL DIFF FLAG NO
[2024-10-04 08:35] LABS: Basophils Absolute Auto 0.1 X10*3/uL (0.0-0.2); Basophils Percent Auto 0.5 % (0-2); Eosinophils Absolute Auto 0.6 X10*3/uL (0.0-0.4); Eosinophils Percent Auto 5.7 % (0-4); Hematocrit 47.8 % (37.0-47.0); Hemoglobin 15.3 g/dl (12.0-16.0); Imm Gran Abs Auto 0.06 X10*3/uL (0.00-0.03); Imm Gran Pct Auto 0.6 % (0.0-0.4); Lymphocytes Absolute Auto 0.7 X10*3/uL (1.2-4.9); Lymphocytes Percent Auto 6.7 % (20-40); Mean Corpuscular Hemoglobin 27.7 pg (27.0-33.0); Mean Corpuscular Volume 86.4 fL (80.0-98.0); Mean Platelet Volume 11.3 fL (9.4-12.3); Monocytes Absolute Auto 1.2 X10*3/uL (0.1-1.2); Monocytes Percent Auto 11.5 % (2-11); Neutrophils Absolute Auto 7.9 x10*3/uL (2.0-8.3); Platelet Count 381 X10*3/uL (160-400); Red Blood Count 5.53 X10*6/uL (4.20-5.50); Red Cell Distribution Width 14.6 % (11.0-16.0); White Blood Count 10.6 X10*3/uL (4.8-10.8)
[2024-10-04 08:46] LABS: Anion Gap 15 (12-20); Blood Urea Nitrogen 30 mg/dL (9-16); Calcium 9.5 mg/dL (8.4-10.2); Carbon Dioxide 27 mmol/L (22-29); Chloride 101 mmol/L (96-108); Creatinine Clr Calc Pharmacy 49.6; Estimated Glomerular Filt Rate 42; Glucose Random 97 mg/dL (60-115); Potassium 3.3 mmol/L (3.3-5.1); Sodium 140 mmol/L (135-145)
--- NOTE | 2024-10-04 09:38 | HO.VASCPN ---
Subjective Subjective Date of Service: 10/04/24 Interval history: Antonia is doing okay this morning. She states she has not been sleeping well. She denies any shortness of breath or chest pain this morning. She has no new concerns. Physical Exam Vital Signs: Vital Signs: Last Vital Signs Temp 97.7 F 10/04/24 07:41 Pulse 62 10/04/24 07:41 Resp 18 10/04/24 07:41 BP 116/58 L 10/04/24 07:41 Pulse Ox 96 10/04/24 07:41 O2 Del Method Room Air 10/04/24 07:41 BMI result Body Mass Index 28.1 Const: General: comfortable and no acute distress Orientation/consciousness: patient oriented x3 HEENT: Ears: hearing grossly normal bilaterally Resp: Effort & Inspection: normal respiratory effort and able to speak in complete sentences Auscultation: clear to auscultation bilaterally Cardio: Rate: regular rate Rhythm: regular rhythm Heart sounds: S1 normal heart sound present and S2 normal heart sound present Bruits: no abdominal aortic bruits, no carotid bruits, no femoral bruits and no renal bruits GI: Palpation (GI): No Abdominal aortic bruit present Neuro: General: patient oriented x3 Cranial nerves: Yes CN's II-XII intact bilaterally Extrem: Other: Right foot: Right great toe gangrenous to the base of the toe, circumferentially, with erythema below the gangrene. Not painful to palpation. Strong and palpable DP and PT pulses. Left foot: Small closed ulcerations noted on the plantar aspect of the great toe, surrounding the toenail on the 2nd and 3rd toes. Palpable DP and PT pulses. Progress Note: A&P Assessment and plan (1) Gangrene of toe of both feet: Status: Acute Assessment and Plan: Antonia remains stable from a vascular standpoint. We will continue to monitor, and follow up with her outpatient. If there are any questions or concerns, please do not hesitate to reach out to us. Time Spent With Patient Time: Total time managing care of this patient today ____ minutes. Procedures Date of Service Date of Service: 10/04/24 Quality Stroke Does the patient have a stroke diagnosis?: No VTE Prior VTE?: No VTE Risk Level:: Medical - moderate - high VTE Device Contraindication: Treatment Not Indicated VTE Drug Contraindication: N/A - Med Ordered
--- NOTE | 2024-10-04 09:39 | P.PNCA_ITS ---
Subjective Subjective Date of Service: 10/04/24 Interval history: From a cardiac standpoint, no overt symptoms. She is not having any shortness of breath at this time. Lying down flat. She was supposed to go for lower extremity angiogram but not clear if it is still getting done as patient states she was asked to follow up rather as an outpatient. Review of Systems Review of Systems Yes all other systems are reviewed and are negative Constitutional: Reports as per HPI and Reports no additional constitutional complaints Eyes: Reports as per HPI and Denies no additional eye complaints Denies system reviewed and no additional complaints, except as documented and Reports as per HPI Cardiovascular: Reports as per HPI, Reports no additional cardiovascular complaints, Denies acrocyanosis, Denies cool extremities, Denies chest pain, Denies leg edema, Denies lightheadedness, Denies palpitations and Denies dyspnea Respiratory: Reports as per HPI, Denies no additional respiratory complaints and Denies dyspnea Gastrointestinal: Reports as per HPI and Denies no additional gastrointestinal complaints Musculoskeletal: Reports no additional musculoskeletal complaints and Reports as per HPI Skin/Breast: Reports system reviewed and no additional complaints, except as docu Reports system reviewed and no additional complaints, except as documented and Reports as per HPI Psychiatric: Reports no additional psychiatric complaints and Reports as per HPI Endocrine: Reports no additional endocrine complaints, Reports as per HPI and Denies palpitations Hematologic/Lymphatic: Reports no additional hematologic/lymphatic complaints and Reports as per HPI Allergic/Immunologic: Reports no additional allergic/immunologic complaints and Reports as per HPI Physical Exam Vital Signs: Last Vital Signs Temp 97.7 F 10/04/24 07:41 Pulse 62 10/04/24 07:41 Resp 18 10/04/24 07:41 BP 116/58 L 10/04/24 07:41 Pulse Ox 96 10/04/24 07:41 O2 Del Method Room Air 10/04/24 07:41 BMI result Body Mass Index 28.1 Const General: comfortable and no acute distress Orientation/consciousness: patient oriented x3 HEENT Other: Unremarkable Head: Yes normal to inspection Neck Neck: Yes normal visual inspection Chest Chest palpation & inspection: normal inspection of the chest Resp Other: Do not hear any significant crackles/rhonchi Auscultation: clear to auscultation bilaterally Cardio Palpation: normal PMI Heart sounds: S1 normal heart sound present, S2 normal heart sound present, no gallops, no murmurs and no rubs GI Palpation (GI): Soft to palpation Back/Spine/Pelvis Other: unremarkable Skin General skin exam: no rashes or lesions noted Neuro General: patient oriented x3 Extrem Other: Gangrenous changes in the toes. General: Yes normal to inspection Psych Mental Status: mental status grossly normal Objective Labs and Meds 10/04/24 07:26 10/04/24 07:26 Lab results: Laboratory Results - last 24 hr 10/04/24 07:26 WBC 10.6 RBC 5.53 H Hgb 15.3 Hct 47.8 H MCV 86.4 MCH 27.7 MCHC 32.0 RDW 14.6 Plt Count 381 MPV 11.3 Immature Gran % (Auto) 0.6 H Neut % (Auto) 75.0 H Lymph % (Auto) 6.7 L [place] % (Auto) 11.5 H Eos % (Auto) 5.7 H Baso % (Auto) 0.5 Lymph # (Auto) 0.7 L [place] # (Auto) 1.2 Eos # (Auto) 0.6 H Baso # (Auto) 0.1 Abs Immat Gran (auto) 0.06 H Absolute Neuts (auto) 7.9 Absolute Nucleated RBC 0.000 Nucleated RBC % (auto) 0.0 Sodium 140 Potassium 3.3 Chloride 101 Carbon Dioxide 27 Anion Gap 15 BUN 30 H Creatinine 1.27 Estim Creat Clear Calc 49.6 Estimated GFR 42 Random Glucose 97 Calcium 9.5 Progress Note: A&P Assessment and plan (1) Atrial fibrillation with rapid ventricular response: Status: Acute Assessment and Plan: Continue metoprolol at the current dose as it is already quite high. She was started on amiodarone yesterday and that has slowed rates considerably. Currently in the 70s to 80s. No need for digoxin probably stop that. Continue anticoagulation. Eventually will need cardioversion but that can be done through her own EP at [facility]. I discussed with him directly during this hospital visit. (2) Acute congestive heart failure: Status: Acute Assessment and Plan: In the echocardiogram, LVEF is 40-45%. 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 Continue diuretics. Consider changing to oral. (3) Gangrene of toe of both feet: Status: Acute Assessment and Plan: Plan for angiogram per vascular. Time Spent With Patient Time: Total time managing care of this patient today ____ minutes. Progress Note: Quality Stroke Does the patient have a stroke diagnosis?: No Procedures Date of Service Date of Service: 10/04/24
[2024-10-04] MEDS: Apixaban 5 MG TABLET PO ×2 (09:44→20:03)
[2024-10-04] MEDS: Empagliflozin 10 MG TABLET PO (09:44)
--- NOTE | 2024-10-04 12:13 | MHC.CM.PN ---
CARE TEAM ORDERED FOR DISPO
--- NOTE | 2024-10-04 12:34 | HO.PM.IMPN ---
Subjective Subjective Date of Service: 10/04/24 Interval History: seen and evaluated this morning HR elevated 120-140s Angiogram cancelled No other events Physical Exam Vital Signs: Vital Signs: Last Vital Signs Temp 97.8 F 10/04/24 11:32 Pulse 68 10/04/24 11:32 Resp 16 10/04/24 11:32 BP 106/56 L 10/04/24 11:32 Pulse Ox 96 10/04/24 11:32 O2 Del Method Room Air 10/04/24 11:32 BMI result Body Mass Index 28.1 Const: Other: Constitutional : Awake, interactive, not in distress Neck : Normal inspection, Supple Cardiovascular : irregular irregular , no JVP, trace lower extremity edema, tachycardia Respiratory : good bilateral air entry, no crackles, wheezes or rhonchi Gastrointestinal: soft, lax, Normal bowel sounds, Non tender Skin : Warm, Dry, right big toe gangrene Neurological : Alert & oriented x3, No focal deficit Objective Data Active Medications Acetaminophen (Acetaminophen 325 Mg Tablet) 650 mg PO Q6H PRN PRN Reason: Pain, Mild 1-3,fever,headache Last Admin: 10/03/24 23:46 Dose: 650 mg Documented By: AIMEE Al Hydroxide/Mg Hydroxide (Magnesium Hydrox/Alum Hydrox 30 Ml Oral.Susp) 30 ml PO QID PRN PRN Reason: GI upset Amiodarone HCl (Amiodarone Hcl 200 Mg Tablet) [address] [facility] Last Admin: 10/04/24 08:19 Dose: 400 mg Documented By: BIANCA Apixaban (Apixaban 5 Mg Tablet) [address] [facility] Last Admin: 10/04/24 09:44 Dose: 5 mg Documented By: BIANCA Aspirin (Aspirin Enteric Coated 81 Mg Tablet.) [address] [facility] Last Admin: 10/04/24 08:18 Dose: 81 mg Documented By: BIANCA Atorvastatin Calcium (Atorvastatin Calcium 10 Mg Tablet) [address] [facility] Last Admin: 10/03/24 20:45 Dose: 10 mg Documented By: AIMEE Benzocaine (Throat Lozenge, Medicated Lozenge) 1 lozenge MUCOUS MEM Q2H PRN PRN Reason: Sore Throat Last Admin: 10/02/24 17:09 Dose: 1 lozenge Documented By: MARION Brimonidine Tartrate (Brimonidine Tartrate 0.2% Oph 5 Ml Bottle) 1 drop EYE-BOTH BID [facility] Last Admin: 10/04/24 08:17 Dose: 1 drop Documented By: BIANCA Calcium Carbonate (Calcium Carbonate 750 Mg Tab.Chew) 750 mg PO Q4H PRN PRN Reason: Heartburn Clonazepam (Clonazepam 0.5 Mg Tablet) 0.[address] [facility] Last Admin: 10/04/24 08:18 Dose: 0.5 mg Documented By: BIANCA Clonazepam (Clonazepam 0.5 Mg Tablet) 0.5 mg PO DAILY PRN PRN Reason: severe anxiety or panic attack Clopidogrel Bisulfate (Clopidogrel Bisulfate 75 Mg Tablet) [address] [facility] Last Admin: 10/04/24 08:18 Dose: 75 mg Documented By: BIANCA Digoxin (Digoxin 0.125 Mg Tablet) 0.[address] [facility]; Protocol Last Admin: 10/04/24 08:19 Dose: 0.25 mg Documented By: BIANCA Docusate Sodium (Docusate Sodium 100 Mg Capsule) 100 mg PO BID PRN PRN Reason: Constipation Empagliflozin (Empagliflozin 10 Mg Tablet) [address] [facility] Last Admin: 10/04/24 09:44 Dose: 10 mg Documented By: BIANCA Furosemide (Furosemide 40 Mg/4 Ml Vial) [address] [facility]; Protocol Last Admin: 10/04/24 08:18 Dose: 40 mg Documented By: BIANCA Guaifenesin (Guaifenesin La 600 Mg Tab.Er.12h) 1,200 mg PO BID PRN PRN Reason: Cough Last Admin: 10/02/24 17:08 Dose: 1,200 mg Documented By: MARION Hydroxyzine HCl (Hydroxyzine Hcl 50 Mg Tablet) 50 mg PO Q4H PRN PRN Reason: moderate to severe anxiety Last Admin: 10/02/24 17:08 Dose: 50 mg Documented By: MARION Latanoprost (Latanoprost 0.005 % Ophth Kristie 2.5 Ml Drops) 1 drop EYE-BOTH BEDTIME [facility] Last Admin: 10/03/24 20:45 Dose: 1 drop Documented By: AIMEE Levothyroxine Sodium (Levothyroxine Sodium 50 Mcg Tablet) 50 mcg PO DAILY@0600 [facility] Last Admin: 10/04/24 05:17 Dose: 50 mcg Documented By: AIMEE Loperamide HCl (Loperamide Hcl 2 Mg Capsule) 2 mg PO DAILY PRN PRN Reason: for each loose stool Magnesium Hydroxide (Milk Of Magnesia 30 Ml Oral.Susp) 30 ml PO DAILY PRN PRN Reason: Constipation Melatonin (Melatonin 3 Mg Tablet) 6 mg PO BEDTIME PRN PRN Reason: Insomnia Last Admin: 10/04/24 02:12 Dose: 6 mg Documented By: AIMEE Melatonin (Melatonin 3 Mg Tablet) 9 mg PO BEDTIME PRN PRN Reason: Insomnia Metoprolol Tartrate (Metoprolol Tartrate 100 Mg Tablet) [address] [facility]; Protocol Last Admin: 10/04/24 08:19 Dose: 200 mg Documented By: BIANCA Metoprolol Tartrate (Metoprolol Tartrate 5 Mg/5 Ml Vial) 5 mg IVPUSH Q6H PRN; Protocol PRN Reason: For Heart rate > 110 Last Admin: 10/03/24 06:40 Dose: 5 mg Documented By: AIMEE Morphine Sulfate (Morphine Sulfate 2 Mg/Ml Cartridge) 2 mg IVPUSH Q4H PRN; Protocol PRN Reason: Pain, Severe (Pain Scale 7-10) Nicotine (Nicotine 21 Mg Patch.Td24) 21 mg TRANSDERMA DAILY PRN PRN Reason: nicotine withdrawal Nicotine Polacrilex (Nicotine Polacrilex 2 Mg Gum) 2 mg BUCCAL Q2H PRN PRN Reason: Nicotine Cravings Ondansetron HCl (Ondansetron Hcl 4 Mg/2 Ml Vial) 4 mg IVPUSH Q8H PRN PRN Reason: Nausea and Vomiting Sodium Chloride (0.9 % Sodium Chloride Flush 3 Ml Syringe) [address] [facility] Last Admin: 10/04/24 08:28 Dose: 3 ml Documented By: BIANCA Venlafaxine HCl (Venlafaxine Hcl Er 150 Mg Cap.Er.24h) [address] [facility] Last Admin: 10/04/24 08:18 Dose: 150 mg Documented By: BIANCA Labs 10/04/24 07:26 10/04/24 07:26 Labs: Laboratory Results - last 24 hr 10/04/24 07:26 MCV 86.4 MCH 27.7 MCHC 32.0 RDW 14.6 Plt Count 381 MPV 11.3 Immature Gran % (Auto) 0.6 H Neut % (Auto) 75.0 H Lymph % (Auto) 6.7 L [place] % (Auto) 11.5 H Eos % (Auto) 5.7 H Baso % (Auto) 0.5 Lymph # (Auto) 0.7 L [place] # (Auto) 1.2 Eos # (Auto) 0.6 H Baso # (Auto) 0.1 Abs Immat Gran (auto) 0.06 H Absolute Neuts (auto) 7.9 Absolute Nucleated RBC 0.000 Nucleated RBC % (auto) 0.0 Anion Gap 15 Estim Creat Clear Calc 49.6 Estimated GFR 42 Random Glucose 97 Calcium 9.5 Assessment and Plan (1) Acute congestive heart failure: Status: Acute (2) Gangrene of toe of both feet: Status: Acute (3) Decompensated heart failure: Status: Acute Plan 69/F with pertinent history of hypothyroidism, history of endometrial cancer, mood disorder, tobacco use disorder, atrial fibrillation on Eliquis, had a pacemaker at [facility] on 09/12/24 after presenting with syncope and and HR in 20s and 30, and had a pacemaker inserted for sick sinus syndrome, patient was also noted at that time to have gangrenous toes--which she states has been ongoing since last summer, following pacemaker, she was sent to [facility] for Bipolar. She was sent to the ED on this occasion due to palpitations and shortness of breath and admitted for AFIB with RVR and Heart failure and noted to have a gangrene of the foot that has been ongoin AFib with RVR. Variable rate home metoprolol 200m g twice daily, Digoxin to 0.25, Continue Eliquis. Cardiology following. 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 Load Amiodarone 400mg bid PRN Metoprolol as needed Keep on Tele PAD with gangrene of toes looks stable vascular consult, for angiogram as outpatient in few weeks Physical deconditioning PT rec SNF placement HypOthyroidism On Synthroid HFrEF, possible tachycardia mediated. continue Lasix continue jardianc HLD--statin CAD/PAD on plavix, ASA, eliquis, metoprolol Mood disorder/Bipolar Continue home mood stabilizers CARE consult before discharge History of Endometrial cancer CT angiogram at [facility] on 09/23 showed thickening of vaginal cuffing suggestive of metastic disease and will need to follow up with her oncologist Tobacco use disorder NRT while in the hospital DVT prophylaxis: Jac Full code The patient will need overnight stay for Afib w RvR control pending safe discharge planning and need of IV medications Quality Stroke Does the patient have a stroke diagnosis?: No VTE Prior VTE?: No VTE Risk Level:: Medical - moderate - high VTE Device Contraindication: Treatment Not Indicated VTE Drug Contraindication: N/A - Med Ordered
--- NOTE | 2024-10-04 13:32 | MHC.CM.PN ---
EMR REVIEWED, P.T. RECOMMENDING STR, PT REQUESTING [place] [facility] SHE LIVES IN [place], REFERRAL TO FACILITIES LOCAL TO [place] SENT, CM WILL CONT TO FOLLOW FOR BED OFFER.
[2024-10-04] MEDS: guaiFENesin LA 600 MG TAB.ER.12H 1200 MG PO (17:18)
[2024-10-04] MEDS: Acetaminophen 325 MG TABLET 650 MG PO (17:18)
--- NOTE | 2024-10-04 17:51 | HO.WOUND ---
Wound Consult: Initial 69yr old?female admitted to [facility] [place] [facility] on 09/30/24 - See progress notes and H&P for detailed history.? Wound consult placed for Bilateral Toes.? Patient agreeable to assessment and photo documentation.? Chart review reveals patient is followed by Vascular services -Dr. Barfield - patient will continue to follow outpt. Bilateral Toes Etiology: ?Suspected arterial Wound?Present on Admission Wound Bed: dry stable black eschar Drainage / Odor: None Edges: ? well demarcated Laura wound: ?dry intact tissue No Induration, Fluctuance or Warmth noted Pain: pain reported Goals of Treatment: ? Betadine to keep dry and stable and dry gauze dressing to protect from trauma Recommendations: 1. Turn and Reposition every 2 hours and as needed for patient comfort.? Use pillows or wedges to support off loading positions. 2. Off Load all bony prominences with use of pillows and heel boots if needed.? Apply Preventative foams where needed. ? 3. Monitor for incontinence and moisture control, use barrier creams when needed for prevention and treatment. 4. Provide adequate and supplemental nutrition.? 5. When applicable maintain blood glucose levels per Providers order. 6. Bilateral Toes - [place] with Betadine allow to dry. Cover with dry ABD pad and gauze wrap. Change every other day. Re-consult wound care Nurse for wound deterioration or wound changes.
[2024-10-04] MEDS: Atorvastatin Calcium 10 MG TABLET PO (20:03)
[2024-10-04] MEDS: Latanoprost 0.005 % Ophth Sol 2.5 ML DROPS 1 DROP EYE-BOTH (20:09)
[2024-10-05] VITALS (11 sets, daily range): BP systolic 82–140; BP diastolic 46–94; PULSE 67–126; RESP 18–28; TEMP 36.2–37.1; O2SAT 89–96
[2024-10-05] MEDS: hydrOXYzine HCL 50 MG TABLET PO (00:22)
[2024-10-05] MEDS: diphenhydrAMINE HCl 2 % Cream 28 GM TUBE 1 APPL TOPICAL (00:22)
[2024-10-05] MEDS: Melatonin 3 MG TABLET 9 MG PO (00:22)
[2024-10-05] MEDS: Levothyroxine Sodium 50 MCG TABLET PO (05:42)
[2024-10-05] MEDS: Venlafaxine HCl ER 150 MG CAP.ER.24H PO (08:35)
[2024-10-05] MEDS: Furosemide 40 MG/4 ML VIAL IVPUSH (08:35)
[2024-10-05] MEDS: Acetaminophen 325 MG TABLET 650 MG PO (08:35)
[2024-10-05] MEDS: Amiodarone HCL 200 MG TABLET 400 MG PO ×2 (08:35→22:22)
[2024-10-05] MEDS: Aspirin Enteric Coated 81 MG TABLET.DR PO (08:35)
[2024-10-05] MEDS: Clopidogrel Bisulfate 75 MG TABLET PO (08:35)
[2024-10-05] MEDS: Digoxin 0.125 MG TABLET 0.25 MG PO (08:36)
[2024-10-05] MEDS: Empagliflozin 10 MG TABLET PO (08:36)
[2024-10-05] MEDS: Apixaban 5 MG TABLET PO ×2 (08:36→22:11)
[2024-10-05] MEDS: guaiFENesin LA 600 MG TAB.ER.12H 1200 MG PO (08:36)
[2024-10-05] MEDS: Docusate Sodium 100 MG CAPSULE PO (08:36)
[2024-10-05] MEDS: 0.9 % Sodium Chloride Flush 3 ML SYRINGE IVFLUSH ×2 (08:37→14:59)
[2024-10-05] MEDS: clonazePAM 0.5 MG TABLET PO (08:37)
[2024-10-05] MEDS: Brimonidine Tartrate 0.2% Oph 5 ML BOTTLE 1 DROP EYE-BOTH ×2 (08:43→22:12)
--- NOTE | 2024-10-05 10:59 | PM.PNCARD ---
Subjective Subjective Date of Service: 10/05/24 Interval history: Some shortness of breath at times. Still quite anxious. Review of Systems Review of Systems Yes all other systems are reviewed and are negative Constitutional: Reports as per HPI and Reports no additional constitutional complaints Eyes: Reports as per HPI and Denies no additional eye complaints Denies system reviewed and no additional complaints, except as documented and Reports as per HPI Cardiovascular: Reports as per HPI, Reports no additional cardiovascular complaints, Denies acrocyanosis, Denies cool extremities, Denies chest pain, Denies leg edema, Denies lightheadedness, Denies palpitations and Reports dyspnea Respiratory: Reports as per HPI, Denies no additional respiratory complaints and Reports dyspnea Gastrointestinal: Reports as per HPI and Denies no additional gastrointestinal complaints Genitourinary: Reports as per HPI Musculoskeletal: Reports no additional musculoskeletal complaints and Reports as per HPI Skin/Breast: Reports system reviewed and no additional complaints, except as docu Reports system reviewed and no additional complaints, except as documented and Reports as per HPI Psychiatric: Reports no additional psychiatric complaints and Reports as per HPI Endocrine: Reports no additional endocrine complaints, Reports as per HPI and Denies palpitations Hematologic/Lymphatic: Reports no additional hematologic/lymphatic complaints and Reports as per HPI Allergic/Immunologic: Reports no additional allergic/immunologic complaints and Reports as per HPI Physical Exam Vital Signs: Last Vital Signs Temp 98.4 F 10/05/24 08:00 Pulse 67 10/05/24 08:00 Resp 28 H 10/05/24 08:00 BP 106/46 L 10/05/24 10:52 Pulse Ox 90 L 10/05/24 10:52 O2 Del Method Room Air 10/05/24 10:52 O2 Flow Rate 1.5 10/05/24 10:52 BMI result Body Mass Index 28.1 Const General: comfortable and no acute distress Orientation/consciousness: patient oriented x3 HEENT Other: Unremarkable Head: Yes normal to inspection Neck Neck: Yes normal visual inspection Chest Chest palpation & inspection: normal inspection of the chest Resp Other: Do not hear any significant crackles/rhonchi Auscultation: clear to auscultation bilaterally Cardio Palpation: normal PMI Heart sounds: S1 normal heart sound present, S2 normal heart sound present, no gallops, no murmurs and no rubs GI Palpation (GI): Soft to palpation Back/Spine/Pelvis Other: unremarkable Skin General skin exam: no rashes or lesions noted Neuro General: patient oriented x3 Extrem Other: Gangrenous changes in the toes. General: Yes normal to inspection Psych Mental Status: mental status grossly normal Objective Labs and Meds 10/04/24 07:26 10/04/24 07:26 Progress Note: A&P Assessment and plan (1) Atrial fibrillation with rapid ventricular response: Status: Acute Assessment and Plan: She is on amiodarone, metoprolol, digoxin. Rate is still fast. Discussed with EP and we will plan for BIBI/cardioversion. Possibly tomorrow. (2) Acute congestive heart failure: Status: Acute Assessment and Plan: In the echocardiogram, LVEF is 40-45%. 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 On diuretics. Should improve once she is back in sinus rhythm. (3) Gangrene of toe of both feet: Status: Acute Assessment and Plan: Plan for angiogram per vascular. Time Spent With Patient Time: Total time managing care of this patient today ____ minutes. Progress Note: Quality Stroke Does the patient have a stroke diagnosis?: No Procedures Date of Service Date of Service: 10/05/24
--- NOTE | 2024-10-05 11:03 | MHC.CM.PN ---
EMR REVIEWED, P.T. RECOMMENDING STR, ULI OLGUIN ABLE TO OFFER HOWEVER PER CARDIOLOGY PT WILL NEED CARDIOVERSION, NO DC PLANNED FOR TODAY, CM WILL CONT TO FOLLOW DC NEEDS.
--- NOTE | 2024-10-05 12:30 | P.CDIM_ITS ---
PROVIDER RESPONSE TEXT: To clarify, the appropriate diagnosis supported by the clinical indicators: Persistent atrial fibrillation: episodes of continuous AF that last more than 7 days and do not self- terminate QUERY TEXT: PHYSICIAN'S DOCUMENTATION REQUEST Date of Query: 10/04/2024 10:03 AM EST Patient Name: Antonia Mandujano Admit Date: 09/30/2024 Dear Olamide Mao MD, A review of the medical record indicates additional documentation may be needed. Please review below and update the documentation accordingly. Clinical Indicators: heart rate 120-140s irregular/variable rate Atrial fibrillation with RVR Metoprolol, Digoxin, load Amiodarone on telemetry If possible, please provide further specificity regarding atrial fibrillation, such as: Paroxysmal atrial fibrillation: terminates spontaneously or with intervention within 7 days of onset Persistent atrial fibrillation: episodes of continuous AF that last more than 7 days and do not self- terminate Long lasting persistent atrial fibrillation: episodes of continuous AF that last more than 12 months Chronic or Permanent atrial fibrillation: when a decision has been made to accept the presence of AF and there is no further attempt to restore or maintain sinus rhythm Other (explain) Clinically unable to determine (explain) Thank you, Leticia Juarez RN Use of terms such as suspected, likely, concern for, or probable (associated with a specific diagnosi s that is being evaluated, monitored, or treated as if it exists) are acceptable and can be coded in the inpatient se tting, when documented at the time of discharge. Please use your independent medical judgment in providing your response. THIS QUERY IS PART OF THE PERMANENT MEDICAL RECORD
--- NOTE | 2024-10-05 13:42 | HO.PM.IMPN ---
Subjective Subjective Date of Service: 10/05/24 Interval History: seen and evaluated this morning HR again elevated 120-140s after being partially controlled yesterday Cardiology suggesting Cardioversion by tomorrow No other events Review of Systems Review of Systems: Yes all other systems are reviewed and are negative Physical Exam Vital Signs: Vital Signs: Last Vital Signs Temp 97.2 F 10/05/24 11:15 Pulse 82 10/05/24 11:15 Resp 22 H 10/05/24 11:15 BP 90/52 L 10/05/24 11:15 Pulse Ox 89 L 10/05/24 11:15 O2 Del Method Room Air 10/05/24 11:15 O2 Flow Rate 1.5 10/05/24 10:52 BMI result Body Mass Index 28.1 Const: Other: Constitutional : Awake, interactive, in distress and anxious Neck : Normal inspection, Supple Cardiovascular : irregular irregular , no JVP, trace lower extremity edema, tachycardia Respiratory : good bilateral air entry, no crackles, wheezes or rhonchi Gastrointestinal: soft, lax, Normal bowel sounds, Non tender Skin : Warm, Dry, right big toe gangrene , extensive rash on her neck, back and lower extremities Neurological : Alert & oriented x3, No focal deficit Objective Data Active Medications Acetaminophen (Acetaminophen 325 Mg Tablet) 650 mg PO Q6H PRN PRN Reason: Pain, Mild 1-3,fever,headache Last Admin: 10/05/24 08:35 Dose: 650 mg Documented By: BRIGIDA Al Hydroxide/Mg Hydroxide (Magnesium Hydrox/Alum Hydrox 30 Ml Oral.Susp) 30 ml PO QID PRN PRN Reason: GI upset Amiodarone HCl (Amiodarone Hcl 200 Mg Tablet) 400 mg PO BID [facility] Last Admin: 10/05/24 08:35 Dose: 400 mg Documented By: BRIGIDA Apixaban (Apixaban 5 Mg Tablet) 5 mg PO BID [facility] Last Admin: 10/05/24 08:36 Dose: 5 mg Documented By: BRIGIDA Aspirin (Aspirin Enteric Coated 81 Mg Tablet.) 81 mg PO DAILY [facility] Last Admin: 10/05/24 08:35 Dose: 81 mg Documented By: BRIGIDA Atorvastatin Calcium (Atorvastatin Calcium 10 Mg Tablet) 10 mg PO BEDTIME [facility] Last Admin: 10/04/24 20:03 Dose: 10 mg Documented By: AIMEE Benzocaine (Throat Lozenge, Medicated Lozenge) 1 lozenge MUCOUS MEM Q2H PRN PRN Reason: Sore Throat Last Admin: 10/02/24 17:09 Dose: 1 lozenge Documented By: MARION Brimonidine Tartrate (Brimonidine Tartrate 0.2% Oph 5 Ml Bottle) 1 drop EYE-BOTH BID [facility] Last Admin: 10/05/24 08:43 Dose: 1 drop Documented By: BRIGIDA Calcium Carbonate (Calcium Carbonate 750 Mg Tab.Chew) 750 mg PO Q4H PRN PRN Reason: Heartburn Clonazepam (Clonazepam 0.5 Mg Tablet) 0.5 mg PO BID [facility] Last Admin: 10/05/24 08:37 Dose: 0.5 mg Documented By: BRIGIDA Clonazepam (Clonazepam 0.5 Mg Tablet) 0.5 mg PO DAILY PRN PRN Reason: severe anxiety or panic attack Last Admin: 10/04/24 16:21 Dose: 0.5 mg Documented By: BIANCA Clopidogrel Bisulfate (Clopidogrel Bisulfate 75 Mg Tablet) 75 mg PO DAILY [facility] Last Admin: 10/05/24 08:35 Dose: 75 mg Documented By: BRIGIDA Docusate Sodium (Docusate Sodium 100 Mg Capsule) 100 mg PO BID PRN PRN Reason: Constipation Last Admin: 10/05/24 08:36 Dose: 100 mg Documented By: BRIGIDA Empagliflozin (Empagliflozin 10 Mg Tablet) 10 mg PO DAILY [facility] Last Admin: 10/05/24 08:36 Dose: 10 mg Documented By: BRIGIDA Furosemide (Furosemide 40 Mg/4 Ml Vial) 40 mg IVPUSH DAILY [facility]; Protocol Last Admin: 10/05/24 08:35 Dose: 40 mg Documented By: BRIGIDA Guaifenesin (Guaifenesin La 600 Mg Tab.Er.12h) 1,200 mg PO BID PRN PRN Reason: Cough Last Admin: 10/05/24 08:36 Dose: 1,200 mg Documented By: BRIGIDA Hydroxyzine HCl (Hydroxyzine Hcl 50 Mg Tablet) 50 mg PO Q4H PRN PRN Reason: moderate to severe anxiety Last Admin: 10/05/24 00:22 Dose: 50 mg Documented By: AIMEE Latanoprost (Latanoprost 0.005 % Ophth Kristie 2.5 Ml Drops) 1 drop EYE-BOTH BEDTIME [facility] Last Admin: 10/04/24 20:09 Dose: 1 drop Documented By: AIMEE Levothyroxine Sodium (Levothyroxine Sodium 50 Mcg Tablet) 50 mcg PO DAILY@0600 [facility] Last Admin: 10/05/24 05:42 Dose: 50 mcg Documented By: AIMEE Loperamide HCl (Loperamide Hcl 2 Mg Capsule) 2 mg PO DAILY PRN PRN Reason: for each loose stool Magnesium Hydroxide (Milk Of Magnesia 30 Ml Oral.Susp) 30 ml PO DAILY PRN PRN Reason: Constipation Melatonin (Melatonin 3 Mg Tablet) 6 mg PO BEDTIME PRN PRN Reason: Insomnia Last Admin: 10/04/24 02:12 Dose: 6 mg Documented By: AIMEE Melatonin (Melatonin 3 Mg Tablet) 9 mg PO BEDTIME PRN PRN Reason: Insomnia Last Admin: 10/05/24 00:22 Dose: 9 mg Documented By: AIMEE Metoprolol Tartrate (Metoprolol Tartrate 100 Mg Tablet) 200 mg PO BID [facility]; Protocol Last Admin: 10/05/24 08:37 Dose: Not Given Documented By: BRIGIDA Non-Admin Reason: Decreased Blood Pressure Metoprolol Tartrate (Metoprolol Tartrate 5 Mg/5 Ml Vial) 5 mg IVPUSH Q6H PRN; Protocol PRN Reason: For Heart rate > 110 Last Admin: 10/03/24 06:40 Dose: 5 mg Documented By: AIMEE Morphine Sulfate (Morphine Sulfate 2 Mg/Ml Cartridge) 2 mg IVPUSH Q4H PRN; Protocol PRN Reason: Pain, Severe (Pain Scale 7-10) Nicotine (Nicotine 21 Mg Patch.Td24) 21 mg TRANSDERMA DAILY PRN PRN Reason: nicotine withdrawal Nicotine Polacrilex (Nicotine Polacrilex 2 Mg Gum) 2 mg BUCCAL Q2H PRN PRN Reason: Nicotine Cravings Ondansetron HCl (Ondansetron Hcl 4 Mg/2 Ml Vial) 4 mg IVPUSH Q8H PRN PRN Reason: Nausea and Vomiting Sodium Chloride (0.9 % Sodium Chloride Flush 3 Ml Syringe) 3 ml IVFLUSH QSHIFT [facility] Last Admin: 10/05/24 08:37 Dose: 3 ml Documented By: BRIGIDA Venlafaxine HCl (Venlafaxine Hcl Er 150 Mg Cap.Er.24h) 150 mg PO DAILY [facility] Last Admin: 10/05/24 08:35 Dose: 150 mg Documented By: BRIGIDA Zinc Acetate/Diphenhydramine (Diphenhydramine Hcl 2 % Cream 28 Gm Tube) 1 appl TOPICAL QID PRN; Protocol PRN Reason: Itching Last Admin: 10/05/24 00:22 Dose: 1 appl Documented By: AIMEE Labs 10/04/24 07:26 10/04/24 07:26 Assessment and Plan (1) Acute congestive heart failure: Status: Acute (2) Gangrene of toe of both feet: Status: Acute (3) Cardiac pacemaker in situ: Status: Acute (4) Decompensated heart failure: Status: Acute Plan 69/F with pertinent history of hypothyroidism, history of endometrial cancer, mood disorder, tobacco use disorder, atrial fibrillation on Eliquis, had a pacemaker at [facility] on 09/12/24 after presenting with syncope and and HR in 20s and 30, and had a pacemaker inserted for sick sinus syndrome, patient was also noted at that time to have gangrenous toes--which she states has been ongoing since last summer, following pacemaker, she was sent to [facility] for Bipolar. She was sent to the ED on this occasion due to palpitations and shortness of breath and admitted for AFIB with RVR and Heart failure and noted to have a gangrene of the foot that has been ongoin AFib with RVR. Variable rate home metoprolol 200m g twice daily Continue Digoxin Continue Amiodarone 400mg bid 10/03 Continue Eliquis. Hold IV Lasix Cardiology following. plan cardioversion tomorrow morning PRN Metoprolol as needed Keep on Tele Hypoxia 2/2 HFrEF, possible tachycardia mediated. repeat CXR IV Lasix continue jardiance Hypotension secodnary to Lasix and MEtoprolol not due to severe sepsis PAD with gangrene of toes looks stable vascular consult, for angiogram as outpatient in few weeks Physical deconditioning PT rec SNF placement extensive rash reported as previous drug eruption Start steroid and nystatin cream follow response HypOthyroidism On Synthroid HLD--statin CAD/PAD on plavix, ASA, eliquis, metoprolol Mood disorder/Bipolar Continue home mood stabilizers CARE consult before discharge History of Endometrial cancer CT angiogram at [facility] on 09/23 showed thickening of vaginal cuffing suggestive of metastic disease and will need to follow up with her oncologist Tobacco use disorder NRT while in the hospital DVT prophylaxis: Jac Full code The patient will need overnight stay for Afib w RvR control pending safe discharge planning and need of IV medications Quality Stroke Does the patient have a stroke diagnosis?: No VTE Prior VTE?: No VTE Risk Level:: Medical - moderate - high VTE Device Contraindication: Treatment Not Indicated VTE Drug Contraindication: N/A - Med Ordered
[2024-10-05] MEDS: Triamcinolone Acet 0.5 % Cream 15 GM TUBE 1 APPL TOPICAL ×2 (14:59→22:12)
[2024-10-05] MEDS: Nystatin/Triamcinolone Cream 15 GM TUBE 1 APPL TOPICAL ×2 (14:59→22:12)
[2024-10-05] MEDS: 0.9 % Sodium Chloride 1,000 ML 999 ML IV ×2 (16:51→17:41)
[2024-10-05] MEDS: Lactated Ringers 1,000 ML 100 ML IVCONT (16:52)
[2024-10-05] MEDS: Midodrine HCl 5 MG TABLET PO (16:54)
[2024-10-05 17:11] LABS: Anion Gap 16 (12-20); Blood Urea Nitrogen 36 mg/dL (9-16); Calcium 9.2 mg/dL (8.4-10.2); Carbon Dioxide 25 mmol/L (22-29); Chloride 100 mmol/L (96-108); Creatinine Clr Calc Pharmacy 36.6; Estimated Glomerular Filt Rate 29; Glucose Random 112 mg/dL (60-115); Potassium 3.4 mmol/L (3.3-5.1); Sodium 138 mmol/L (135-145)
[2024-10-05 17:13] LABS: Lactic Acid 1.8 mmol/L (0.5-2.0)
[2024-10-05] MEDS: Metoprolol Tartrate 100 MG TABLET 200 MG PO (21:56)
[2024-10-05] MEDS: Latanoprost 0.005 % Ophth Sol 2.5 ML DROPS 1 DROP EYE-BOTH (22:12)
[2024-10-05] MEDS: Atorvastatin Calcium 10 MG TABLET PO (22:13)
[2024-10-06] VITALS (30 sets, daily range): BP systolic 82–156; BP diastolic 32–91; PULSE 60–128; RESP 16–53; TEMP 36.1–38; O2SAT 89–98
[2024-10-06] MEDS: Lactated Ringers 1,000 ML 100 ML IVCONT (02:40)
[2024-10-06] MEDS: Morphine Sulfate 2 MG/ML CARTRIDGE IVPUSH (04:43)
[2024-10-06 04:46] LABS: ABG HCO3 19 mmol/L (22-26); ABG pCO2 24 mmHg (32-45); ABG pH 7.49 (7.35-7.45); ABG pO2 64 mmHg (83-108)
[2024-10-06 04:52] LABS: MANUAL DIFF FLAG NO
[2024-10-06 04:54] LABS: Basophils Percent Auto 0.2 % (0-2); Eosinophils Absolute Auto 0.1 X10*3/uL (0.0-0.4); Eosinophils Percent Auto 0.4 % (0-4); Hematocrit 43.5 % (37.0-47.0); Hemoglobin 14.3 g/dl (12.0-16.0); Imm Gran Pct Auto 0.7 % (0.0-0.4); Lymphocytes Absolute Auto 0.6 X10*3/uL (1.2-4.9); Lymphocytes Percent Auto 4.1 % (20-40); Mean Corpuscular HGB Conc 32.9 g/dl (31.0-35.0); Mean Corpuscular Hemoglobin 28.5 pg (27.0-33.0); Mean Corpuscular Volume 86.7 fL (80.0-98.0); Mean Platelet Volume 11.1 fL (9.4-12.3); Monocytes Absolute Auto 0.9 X10*3/uL (0.1-1.2); Monocytes Percent Auto 6.5 % (2-11); Neutrophils Percent Auto 88.1 % (45-73); Platelet Count 339 X10*3/uL (160-400); Red Blood Count 5.02 X10*6/uL (4.20-5.50); Red Cell Distribution Width 14.8 % (11.0-16.0); White Blood Count 13.6 X10*3/uL (4.8-10.8)
[2024-10-06 05:09] LABS: Anion Gap 17 (12-20); Blood Urea Nitrogen 28 mg/dL (9-16); Calcium 9.4 mg/dL (8.4-10.2); Carbon Dioxide 21 mmol/L (22-29); Chloride 106 mmol/L (96-108); Creatinine Clr Calc Pharmacy 46.7; Estimated Glomerular Filt Rate 39; Glucose Random 105 mg/dL (60-115); Potassium 4.1 mmol/L (3.3-5.1); Sodium 140 mmol/L (135-145)
[2024-10-06 05:13] LABS: B Type Natriuretic Peptide 1894 pg/mL (<100)
--- NOTE | 2024-10-06 05:54 | PM.EVENT ---
Event Note Date of Service: 10/06/24 Event Note: Notified by nursing that pt was increasingly anxious, tachypneic, tachycardic, and with O2 sats dropping to 89% on RA. Pt seen and evaluated in her room where she is noted to have a nonproductive but wet sounding cough. Initial concern was for fluid overload given admission for CHF and that pt had received 3L IVF the day prior. Pt initially anxious and with shallow and quick breathing. Pt was given morphine 2 mg IV which helped calm pt and improved breathing. Labs were obtained that were significant for new leukocytosis of 13.6, improved renal function with creatinine 1.35, and BNP mildly improved at 1894. Chest x-ray showed worsening consolidation on the left concerning for infection. Vitals were rechecked and pt continued to be tachycardic at 103, tachypneic up to 34, and with elevated temp of 100.4 degrees. Given CXR concerns for infection, pt met SIRS criteria at 05:36 with tachypnea and leukocytosis; tachycardia secondary to AFib. Will draw lactic acid and start pt on empiric cefepime 2 mg IV Q12 hours. Will also test for Flu/COVID/RSV to r/o viral source. Time Spent With Patient Time: Total time managing care of this patient today ____ minutes.
[2024-10-06] MEDS: Levothyroxine Sodium 50 MCG TABLET PO (06:18)
[2024-10-06 06:19] LABS: Lactic Acid 1.9 mmol/L (0.5-2.0)
[2024-10-06] MEDS: cefEPime HCl/D5W 2 GM/50 ML PIGGYBACK IV ×2 (06:26→18:20)
--- NOTE | 2024-10-06 07:24 | P.PNIM_ITS ---
Subjective Subjective Date of Service: 10/06/24 Interval History: seen and evaluated this morning Had cardioversion complicated with hypotension coverted back to Afib after brief period in sinus feels better overall +ve for RSV No other events Review of Systems Review of Systems: Yes all other systems are reviewed and are negative Physical Exam 2 Vital Signs: Vital Signs: Last Vital Signs Temp 100.4 F 10/06/24 05:26 Pulse 103 H 10/06/24 05:26 Resp 34 H 10/06/24 05:26 BP 117/83 10/06/24 05:26 Pulse Ox 92 10/06/24 05:26 O2 Del Method Nasal Cannula 10/06/24 05:26 O2 Flow Rate 4 10/06/24 05:26 BMI result Body Mass Index 28.1 Const: Other: Constitutional : Awake, interactive, in distress and anxious Neck : Normal inspection, Supple Cardiovascular : irregular irregular , no JVP, trace lower extremity edema, tachycardia Respiratory : good bilateral air entry, no crackles, wheezes or rhonchi Gastrointestinal: soft, lax, Normal bowel sounds, Non tender Skin : Warm, Dry, right big toe gangrene , extensive rash on her neck, back and lower extremities Neurological : Alert & oriented x3, No focal deficit Objective Data Active Medications Acetaminophen (Acetaminophen 325 Mg Tablet) 650 mg PO Q6H PRN PRN Reason: Pain, Mild 1-3,fever,headache Last Admin: 10/05/24 08:35 Dose: 650 mg Documented By: BRIGIDA Al Hydroxide/Mg Hydroxide (Magnesium Hydrox/Alum Hydrox 30 Ml Oral.Susp) 30 ml PO QID PRN PRN Reason: GI upset Amiodarone HCl (Amiodarone Hcl 200 Mg Tablet) 400 mg PO BID [facility] Last Admin: 10/05/24 22:22 Dose: 400 mg Documented By: AIMEE Apixaban (Apixaban 5 Mg Tablet) 5 mg PO BID [facility] Last Admin: 10/05/24 22:11 Dose: 5 mg Documented By: AIMEE Aspirin (Aspirin Enteric Coated 81 Mg Tablet.) 81 mg PO DAILY [facility] Last Admin: 10/05/24 08:35 Dose: 81 mg Documented By: BRIGIDA Atorvastatin Calcium (Atorvastatin Calcium 10 Mg Tablet) 10 mg PO BEDTIME [facility] Last Admin: 10/05/24 22:13 Dose: 10 mg Documented By: AIMEE Benzocaine (Throat Lozenge, Medicated Lozenge) 1 lozenge MUCOUS MEM Q2H PRN PRN Reason: Sore Throat Last Admin: 10/02/24 17:09 Dose: 1 lozenge Documented By: MARION Brimonidine Tartrate (Brimonidine Tartrate 0.2% Oph 5 Ml Bottle) 1 drop EYE- BOTH BID [facility] Last Admin: 10/05/24 22:12 Dose: 1 drop Documented By: AIMEE Calcium Carbonate (Calcium Carbonate 750 Mg Tab.Chew) 750 mg PO Q4H PRN PRN Reason: Heartburn Clonazepam (Clonazepam 0.5 Mg Tablet) 0.5 mg PO DAILY PRN PRN Reason: severe anxiety or panic attack Last Admin: 10/04/24 16:21 Dose: 0.5 mg Documented By: BIANCA Clopidogrel Bisulfate (Clopidogrel Bisulfate 75 Mg Tablet) 75 mg PO DAILY [facility] Last Admin: 10/05/24 08:35 Dose: 75 mg Documented By: BRIGIDA Docusate Sodium (Docusate Sodium 100 Mg Capsule) 100 mg PO BID PRN PRN Reason: Constipation Last Admin: 10/05/24 08:36 Dose: 100 mg Documented By: BRIGIDA Empagliflozin (Empagliflozin 10 Mg Tablet) 10 mg PO DAILY [facility] Last Admin: 10/05/24 08:36 Dose: 10 mg Documented By: BRIGIDA Furosemide (Furosemide 40 Mg/4 Ml Vial) 40 mg IVPUSH DAILY [facility]; Protocol Last Admin: 10/05/24 08:35 Dose: 40 mg Documented By: BRIGIDA Guaifenesin (Guaifenesin La 600 Mg Tab.Er.12h) 1,200 mg PO BID PRN PRN Reason: Cough Last Admin: 10/05/24 08:36 Dose: 1,200 mg Documented By: BRIGIDA Hydroxyzine HCl (Hydroxyzine Hcl 50 Mg Tablet) 50 mg PO Q4H PRN PRN Reason: moderate to severe anxiety Last Admin: 10/05/24 00:22 Dose: 50 mg Documented By: AIMEE Lactated Ringer's (Lr) 1,000 mls @ 100 mls/hr IVCONT .Q10H [facility] Last Admin: 10/06/24 02:40 Dose: 100 mls/hr Documented By: SAL Cefepime HCl (Maxipime) 2 gm in 50 mls @ 100 mls/hr IV Q12H [facility] Last Infusion: 10/06/24 07:11 Dose: Infused Documented By: AIMEE Latanoprost (Latanoprost 0.005 % Ophth Kristie 2.5 Ml Drops) 1 drop EYE-BOTH BEDTIME [facility] Last Admin: 10/05/24 22:12 Dose: 1 drop Documented By: AIMEE Levothyroxine Sodium (Levothyroxine Sodium 50 Mcg Tablet) 50 mcg PO DAILY@0600 [facility] Last Admin: 10/06/24 06:18 Dose: 50 mcg Documented By: SAL Loperamide HCl (Loperamide Hcl 2 Mg Capsule) 2 mg PO DAILY PRN PRN Reason: for each loose stool Magnesium Hydroxide (Milk Of Magnesia 30 Ml Oral.Susp) 30 ml PO DAILY PRN PRN Reason: Constipation Melatonin (Melatonin 3 Mg Tablet) 6 mg PO BEDTIME PRN PRN Reason: Insomnia Last Admin: 10/04/24 02:12 Dose: 6 mg Documented By: AIMEE Melatonin (Melatonin 3 Mg Tablet) 9 mg PO BEDTIME PRN PRN Reason: Insomnia Last Admin: 10/05/24 00:22 Dose: 9 mg Documented By: AIMEE Metoprolol Tartrate (Metoprolol Tartrate 100 Mg Tablet) 200 mg PO BID [facility]; Protocol Last Admin: 10/05/24 21:56 Dose: 200 mg Documented By: AIMEE Metoprolol Tartrate (Metoprolol Tartrate 5 Mg/5 Ml Vial) 5 mg IVPUSH Q6H PRN; Protocol PRN Reason: For Heart rate > 110 Last Admin: 10/03/24 06:40 Dose: 5 mg Documented By: AIMEE Morphine Sulfate (Morphine Sulfate 2 Mg/Ml Cartridge) 2 mg IVPUSH Q4H PRN; Protocol PRN Reason: Pain, Severe (Pain Scale 7-10) Last Admin: 10/06/24 04:43 Dose: 2 mg Documented By: AIMEE Nicotine (Nicotine 21 Mg Patch.Td24) 21 mg TRANSDERMA DAILY PRN PRN Reason: nicotine withdrawal Nicotine Polacrilex (Nicotine Polacrilex 2 Mg Gum) 2 mg BUCCAL Q2H PRN PRN Reason: Nicotine Cravings Nystatin/Triamcinolone Acetonide (Nystatin/Triamcinolone Cream 15 Gm Tube) 1 appl TOPICAL BID [facility]; Protocol Last Admin: 10/05/24 22:12 Dose: 1 appl Documented By: AIMEE Ondansetron HCl (Ondansetron Hcl 4 Mg/2 Ml Vial) 4 mg IVPUSH Q8H PRN PRN Reason: Nausea and Vomiting Pharmacy Consult (Consult Rx Vancomycin Dosing) 1 each MISCELLANE DAILY PRN PRN Reason: Consult order Sodium Chloride (0.9 % Sodium Chloride Flush 3 Ml Syringe) 3 ml IVFLUSH QSHIFT [facility] Last Admin: 10/05/24 23:46 Dose: Not Given Documented By: AIMEE Non-Admin Reason: IV Running Triamcinolone Acetonide (Triamcinolone Acet 0.5 % Cream 15 Gm Tube) 1 appl TOPICAL BID [facility]; Protocol Last Admin: 10/05/24 22:12 Dose: 1 appl Documented By: AIMEE Venlafaxine HCl (Venlafaxine Hcl Er 150 Mg Cap.Er.24h) 150 mg PO DAILY [facility] Last Admin: 10/05/24 08:35 Dose: 150 mg Documented By: BRIGIDA Zinc Acetate/Diphenhydramine (Diphenhydramine Hcl 2 % Cream 28 Gm Tube) 1 appl TOPICAL QID PRN; Protocol PRN Reason: Itching Last Admin: 10/05/24 00:22 Dose: 1 appl Documented By: AIMEE Labs 10/06/24 04:49 10/06/24 04:49 Labs: Laboratory Results - last 24 hr 10/05/24 10/06/24 10/06/24 16:51 04:41 04:49 MCV 86.7 MCH 28.5 MCHC 32.9 RDW 14.8 Plt Count 339 MPV 11.1 Immature Gran % (Auto) 0.7 H Neut % (Auto) 88.1 H Lymph % (Auto) 4.1 L Knox % (Auto) 6.5 Eos % (Auto) 0.4 Baso % (Auto) 0.2 Lymph # (Auto) 0.6 L Knox # (Auto) 0.9 Eos # (Auto) 0.1 Baso # (Auto) 0.0 Abs Immat Gran (auto) 0.10 H Absolute Neuts (auto) 12.0 H Absolute Nucleated RBC 0.000 Nucleated RBC % (auto) 0.0 O2 Saturation 93.0 ABG pH at Pt Temp 7.49 H ABG pCO2 at Pt Temp 24 L ABG pO2 at Pt Temp 64 L ABG HCO3 19 L ABG Base Excess (Actual) -2.0 Anion Gap 16 17 Estim Creat Clear Calc 36.6 46.7 Estimated GFR 29 39 Random Glucose 112 105 Lactic Acid 1.8 Calcium 9.2 9.4 B-Natriuretic Peptide 1894 H 10/06/24 05:58 MCV MCH MCHC RDW Plt Count MPV Immature Gran % (Auto) Neut % (Auto) Lymph % (Auto) Knox % (Auto) Eos % (Auto) Baso % (Auto) Lymph # (Auto) Knox # (Auto) Eos # (Auto) Baso # (Auto) Abs Immat Gran (auto) Absolute Neuts (auto) Absolute Nucleated RBC Nucleated RBC % (auto) O2 Saturation ABG pH at Pt Temp ABG pCO2 at Pt Temp ABG pO2 at Pt Temp ABG HCO3 ABG Base Excess (Actual) Anion Gap Estim Creat Clear Calc Estimated GFR Random Glucose Lactic Acid 1.9 Calcium B-Natriuretic Peptide Assessment and Plan (1) Acute congestive heart failure: Status: Acute (2) Gangrene of toe of both feet: Status: Acute (3) Cardiac pacemaker in situ: Status: Acute (4) Decompensated heart failure: Status: Acute (5) Mood disorder: Status: Acute (6) RSV (respiratory syncytial virus pneumonia): Status: Acute Plan 69/F with pertinent history of hypothyroidism, history of endometrial cancer, mood disorder, tobacco use disorder, atrial fibrillation on Eliquis, had a pacemaker at [facility] on 09/12/24 after presenting with syncope and and HR in 20s and 30, and had a pacemaker inserted for sick sinus syndrome, patient was also noted at that time to have gangrenous toes--which she states has been ongoing since last summer, following pacemaker, she was sent to [facility] for Bipolar. She was sent to the ED on this occasion due to palpitations and shortness of breath and admitted for AFIB with RVR and Heart failure and noted to have a gangrene of the foot that has been ongoin AFib with RVR. Failed Cardioversion on 10/06, back to Afib switch Metoprolol 50 mg Q6 dc Digoxin Continue Amiodarone 400mg bid 10/03 Continue Eliquis. Hold IV Lasix for ALEJANDRO Cardiology following. medical management for now PRN IV Metoprolol as needed Keep on Tele Hypoxia 2/2 HFrEF, possible tachycardia mediated. repeat CXR hold IV Lasix continue jardiance Viral sepsis 2/2 RSV infection complicated with Hypotension not due to severe sepsis LA normal covered with empirical IV Abx pending final cultures Wean O2 down as toelrated PAD with gangrene of toes looks stable vascular consult, for angiogram as outpatient in few weeks Physical deconditioning PT rec SNF placement extensive rash reported as previous drug eruption Start steroid and nystatin cream follow response HypOthyroidism On Synthroid HLD--statin CAD/PAD on plavix, ASA, eliquis, metoprolol Mood disorder/Bipolar Continue home mood stabilizers CARE consult before discharge History of Endometrial cancer CT angiogram at [facility] on 09/23 showed thickening of vaginal cuffing suggestive of metastic disease and will need to follow up with her oncologist Tobacco use disorder NRT while in the hospital DVT prophylaxis: Eliquis Full code The patient will need overnight stay for Afib w RvR control pending safe discharge planning and need of IV medications Quality Stroke Does the patient have a stroke diagnosis?: No VTE Prior VTE?: No VTE Risk Level:: Medical - moderate - high VTE Device Contraindication: Treatment Not Indicated VTE Drug Contraindication: N/A - Med Ordered
--- NOTE | 2024-10-06 07:34 | PC.NURSE ---
Pt reporting SOB around 0350am, RR 40, 89% on 2L placed on 4L sating 94%, lungs diminished. IV fluids paused provider notified. Stat CXR, ABGs and labs ordered. Provider to bedside to assess patient, PRN morphine given, provider told this RN to hold fluids for now, CXR showing worsening consolidation, IV abx ordered and hung; respiratory swab pending.
--- NOTE | 2024-10-06 07:48 | PHA.PROG ---
Admission Date/Time: September 30, 2024 04:17 Indication: SEPSIS Weight in k.183 kg Adjusted body weight in Kg: Madelia body weight in Kg: Obesity Dosing Indication % IBW: Serum Creatinine - Last 168 Hours 09/30/24 09/30/24 10/01/24 01:21 07:53 13:04 Creatinine 1.20 0.97 1.13 10/02/24 10/03/24 10/04/24 10:52 08:06 07:26 Creatinine 1.01 0.91 1.27 10/05/24 10/06/24 16:51 04:49 Creatinine 1.72 H 1.35 Estimated CrCl and GFR - Last 168 Hours 09/30/24 09/30/24 10/01/24 01:21 07:53 13:04 Estim Creat Clear Calc 52.5 64.9 55.8 Estimated GFR 45 57 48 10/02/24 10/03/24 10/04/24 10:52 08:06 07:26 Estim Creat Clear Calc 62.4 69.3 49.6 Estimated GFR 55 > 60 42 10/05/24 10/06/24 16:51 04:49 Estim Creat Clear Calc 36.6 46.7 Estimated GFR 29 39 Vancomycin Loading Dose: 2000 MG Current Vancomycin Dosing Regimen: 1250 MG Q 24 HOURS Vancomycin Monitoring using AUC goal of 400 - 600 range with trough as surrogate marker: Date and Time for next Vancomycin Level to be drawn: 10/08 AFTER 2 DOSES Pharmacist Comments on Vancomycin Plan: PREDICTED auc OF 511 Vancomycin dosing will take advantage of [employer] as a clinical decision support tool that uses Bayesian modeling to calculate individual patient's pharmacokinetic parameters and forecast the patient's drug concentration time course with the target goal AUC 24 range of 400 - 600 mg/L/hr.
[2024-10-06] MEDS: Aspirin Enteric Coated 81 MG TABLET.DR PO (08:01)
[2024-10-06] MEDS: Amiodarone HCL 200 MG TABLET 400 MG PO ×2 (08:01→20:33)
[2024-10-06] MEDS: Acetaminophen 325 MG TABLET 650 MG PO (08:01)
[2024-10-06] MEDS: guaiFENesin LA 600 MG TAB.ER.12H 1200 MG PO (08:01)
[2024-10-06] MEDS: Apixaban 5 MG TABLET PO ×2 (08:01→20:33)
[2024-10-06] MEDS: Venlafaxine HCl ER 150 MG CAP.ER.24H PO (08:01)
[2024-10-06] MEDS: Clopidogrel Bisulfate 75 MG TABLET PO (08:02)
[2024-10-06] MEDS: 0.9 % Sodium Chloride Flush 3 ML SYRINGE IVFLUSH ×3 (08:02→20:34)
[2024-10-06] MEDS: Nystatin/Triamcinolone Cream 15 GM TUBE 1 APPL TOPICAL ×2 (08:06→20:34)
[2024-10-06] MEDS: Brimonidine Tartrate 0.2% Oph 5 ML BOTTLE 1 DROP EYE-BOTH ×2 (08:07→20:34)
[2024-10-06] MEDS: Triamcinolone Acet 0.5 % Cream 15 GM TUBE 1 APPL TOPICAL ×2 (08:07→20:34)
[2024-10-06] MEDS: vancomycin/NS 2,000 MG/500 ML PLAST..BAG 250 MG IV (08:34)
[2024-10-06 09:31] LABS: Influenza A PCR NEGATIVE (Negative); Influenza B PCR NEGATIVE (Negative); Resp Syncy Virus RNA Qual PCR POSITIVE (Negative); SARS COV2 PCR INHOUSE NEGATIVE (Negative)
--- NOTE | 2024-10-06 09:35 | HO.CARDIVERS ---
Cardioversion Procedure Note Cardioversion Date of Procedure: 10/06/2024 Pre-Op Diagnosis: Atrial fibrillation and rapid ventricular response. Post-Op Diagnosis: Sinus rhythm Consent: Informed consent obtained. Procedure: After informed consent was obtained patient was taken to the operating room. Transesophageal echocardiogram was initially performed. That showed no evidence of left atrial appendage thrombus. Subsequently, 120 joules of synchronized shock was administered using pads in the anterior-posterior position. She converted from atrial fibrillation to sinus rhythm. Remained in sinus at the end of procedure. Complications: None. Impression: Successful cardioversion from atrial fibrillation to sinus rhythm. Recommendations: Continue amiodarone. Continue anticoagulation.
--- NOTE | 2024-10-06 09:43 | PM.PNCARD ---
Subjective Subjective Date of Service: 10/06/24 Interval history: seen in [facility]U. It appears that she had temp and then serology tested and now +ve for RSV. She states that she doesn't feel good overall. Also had hypotension yesterday, now better. Review of Systems Review of Systems Yes all other systems are reviewed and are negative Constitutional: Reports as per HPI and Reports no additional constitutional complaints Eyes: Reports as per HPI and Denies no additional eye complaints Denies system reviewed and no additional complaints, except as documented and Reports as per HPI Cardiovascular: Reports as per HPI, Reports no additional cardiovascular complaints, Denies acrocyanosis, Denies cool extremities, Denies chest pain, Denies leg edema, Denies lightheadedness, Denies palpitations and Reports dyspnea Respiratory: Reports as per HPI, Denies no additional respiratory complaints and Reports dyspnea Gastrointestinal: Reports as per HPI and Denies no additional gastrointestinal complaints Genitourinary: Reports as per HPI Musculoskeletal: Reports no additional musculoskeletal complaints and Reports as per HPI Skin/Breast: Reports system reviewed and no additional complaints, except as docu Reports system reviewed and no additional complaints, except as documented and Reports as per HPI Psychiatric: Reports no additional psychiatric complaints and Reports as per HPI Endocrine: Reports no additional endocrine complaints, Reports as per HPI and Denies palpitations Hematologic/Lymphatic: Reports no additional hematologic/lymphatic complaints and Reports as per HPI Allergic/Immunologic: Reports no additional allergic/immunologic complaints and Reports as per HPI Physical Exam Vital Signs: Last Vital Signs Temp 98.4 F 10/06/24 07:37 Pulse 107 H 10/06/24 07:37 Resp 18 10/06/24 07:37 BP 122/72 10/06/24 07:37 Pulse Ox 90 L 10/06/24 07:37 O2 Del Method Nasal Cannula 10/06/24 07:37 O2 Flow Rate 4 10/06/24 07:37 BMI result Body Mass Index 28.1 Const General: comfortable and no acute distress Orientation/consciousness: patient oriented x3 HEENT Other: Unremarkable Head: Yes normal to inspection Neck Neck: Yes normal visual inspection Chest Chest palpation & inspection: normal inspection of the chest Resp Other: Do not hear any significant crackles/rhonchi Auscultation: clear to auscultation bilaterally Cardio Palpation: normal PMI Heart sounds: S1 normal heart sound present, S2 normal heart sound present, no gallops, no murmurs and no rubs GI Palpation (GI): Soft to palpation Back/Spine/Pelvis Other: unremarkable Skin General skin exam: no rashes or lesions noted Neuro General: patient oriented x3 Extrem Other: Gangrenous changes in the toes. General: Yes normal to inspection Psych Mental Status: mental status grossly normal Objective Labs and Meds 10/06/24 04:49 10/06/24 04:49 Lab results: Laboratory Results - last 24 hr 10/05/24 10/06/24 10/06/24 16:51 04:41 04:49 WBC 13.6 H RBC 5.02 Hgb 14.3 Hct 43.5 MCV 86.7 MCH 28.5 MCHC 32.9 RDW 14.8 Plt Count 339 MPV 11.1 Immature Gran % (Auto) 0.7 H Neut % (Auto) 88.1 H Lymph % (Auto) 4.1 L [place] % (Auto) 6.5 Eos % (Auto) 0.4 Baso % (Auto) 0.2 Lymph # (Auto) 0.6 L [place] # (Auto) 0.9 Eos # (Auto) 0.1 Baso # (Auto) 0.0 Abs Immat Gran (auto) 0.10 H Absolute Neuts (auto) 12.0 H Absolute Nucleated RBC 0.000 Nucleated RBC % (auto) 0.0 O2 Saturation 93.0 ABG pH at Pt Temp 7.49 H ABG pCO2 at Pt Temp 24 L ABG pO2 at Pt Temp 64 L ABG HCO3 19 L ABG Base Excess (Actual) -2.0 Sodium 138 140 Potassium 3.4 4.1 D Chloride 100 106 Carbon Dioxide 25 21 L Anion Gap 16 17 BUN 36 H 28 H Creatinine 1.72 H 1.35 Estim Creat Clear Calc 36.6 46.7 Estimated GFR 29 39 Random Glucose 112 105 Lactic Acid 1.8 Calcium 9.2 9.4 B-Natriuretic Peptide 1894 H Influenza Type A (PCR) Influenza Type B (PCR) RSV RNA Qual (PCR) SARS-CoV-2 RNA (RT-PCR) Blood Type 10/06/24 10/06/24 10/06/24 05:58 08:22 08:49 WBC RBC Hgb Hct MCV MCH MCHC RDW Plt Count MPV Immature Gran % (Auto) Neut % (Auto) Lymph % (Auto) [place] % (Auto) Eos % (Auto) Baso % (Auto) Lymph # (Auto) [place] # (Auto) Eos # (Auto) Baso # (Auto) Abs Immat Gran (auto) Absolute Neuts (auto) Absolute Nucleated RBC Nucleated RBC % (auto) O2 Saturation ABG pH at Pt Temp ABG pCO2 at Pt Temp ABG pO2 at Pt Temp ABG HCO3 ABG Base Excess (Actual) Sodium Potassium Chloride Carbon Dioxide Anion Gap BUN Creatinine Estim Creat Clear Calc Estimated GFR Random Glucose Lactic Acid 1.9 Calcium B-Natriuretic Peptide Influenza Type A (PCR) NEGATIVE Influenza Type B (PCR) NEGATIVE RSV RNA Qual (PCR) POSITIVE A SARS-CoV-2 RNA (RT-PCR) NEGATIVE Blood Type AB Positive Imaging Radiologist's impression: Impressions Chest X-Ray 10/05/24 15:20 IMPRESSION: 1. Right chest port has retracted mildly into the right IJ. Tip is now in the mid SVC. 2. Dual-lead pacer in good position. 3. Borderline cardiac enlargement. 4. Hyperaerated lung parenchyma. Linear opacity left base, likely atelectasis. Cannot definitively exclude pneumonia given the appearance. Electronically signed by: Jose Martin Ramirez MD 10/05/2024 03:59 PM [facility] [place] Note: A&P Assessment and plan (1) Atrial fibrillation with rapid ventricular response: Status: Acute Assessment and Plan: She is on amiodarone, metoprolol, digoxin. Rate is still fast. Plan for BIBI/CV today. There is no other option at this time considering ongoing tachycardia, SOB, hypotension episodes. D/w patient about this and she agrees with full satisfaction. Also d/w EP yesterday. (2) Acute congestive heart failure: Status: Acute Assessment and Plan: In the echocardiogram, LVEF is 40-45%. 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 On intermittent diuretics. Should improve once she is back in sinus rhythm. (3) Gangrene of toe of both feet: Status: Acute Assessment and Plan: Plan for angiogram per vascular. Should wait about 4 weeks atleast after cardioversion if this needs interruption of anti-coagulation. Time Spent With Patient Time: Total time managing care of this patient today ____ minutes. Progress Note: Quality Stroke Does the patient have a stroke diagnosis?: No Procedures Date of Service Date of Service: 10/06/24
--- NOTE | 2024-10-06 10:00 | P.CONAN_ITS ---
HPI - Anesthesia Eval Consult details Narrative: Rapid A-fib PMFSH Active Problems Active Problems: All Active Problems Acute congestive heart failure (Acute) Gangrene of toe of both feet (Acute) Cardiac pacemaker in situ (Acute) Decompensated heart failure (Acute) Mood disorder (Acute) Atrial fibrillation (Acute) Hypothyroidism (Acute) Congestive heart failure (Acute) Atrial fibrillation with rapid ventricular response (Acute) Past Medical History Medical History Mood disorder Atrial fibrillation Hypothyroidism Family History Family history of problems with anesthesia: No Surgical History History of Problems with Anesthesia: No Social History Social History Household Members: None Housing: Condominium Do you presently have visiting nurse or other home services: No Comment: Sitter Patient Tobacco Use Status: Never used Tobacco service: No Meds Allergies Allergy/AdvReac Type Severity Reaction Status Date / Time No Known Allergies Allergy Verified 09/30/24 01:21 Active Medications: Current Medications Acetaminophen (Acetaminophen 325 Mg Tablet) 650 mg PO Q6H PRN PRN Reason: Pain, Mild 1-3,fever,headache Last Admin: 10/06/24 08:01 Dose: 650 mg Al Hydroxide/Mg Hydroxide (Magnesium Hydrox/Alum Hydrox 30 Ml Oral.Susp) 30 ml PO QID PRN PRN Reason: GI upset Amiodarone HCl (Amiodarone Hcl 200 Mg Tablet) 400 mg PO BID [facility] Last Admin: 10/06/24 08:01 Dose: 400 mg Apixaban (Apixaban 5 Mg Tablet) 5 mg PO BID [facility] [place] Last Admin: 10/06/24 08:01 Dose: 5 mg Aspirin (Aspirin Enteric Coated 81 Mg Tablet.Dr) 81 mg PO DAILY [facility] [place] Last Admin: 10/06/24 08:01 Dose: 81 mg Atorvastatin Calcium (Atorvastatin Calcium 10 Mg Tablet) 10 mg PO BEDTIME [facility] [place] Last Admin: 10/05/24 22:13 Dose: 10 mg Benzocaine (Throat Lozenge, Medicated Lozenge) 1 lozenge MUCOUS MEM Q2H PRN PRN Reason: Sore Throat Last Admin: 10/02/24 17:09 Dose: 1 lozenge Brimonidine Tartrate (Brimonidine Tartrate 0.2% Oph 5 Ml Bottle) 1 drop EYE- BOTH BID [facility] [place] Last Admin: 10/06/24 08:07 Dose: 1 drop Calcium Carbonate (Calcium Carbonate 750 Mg Tab.Chew) 750 mg PO Q4H PRN PRN Reason: Heartburn Clonazepam (Clonazepam 0.5 Mg Tablet) 0.5 mg PO DAILY PRN PRN Reason: severe anxiety or panic attack Last Admin: 10/04/24 16:21 Dose: 0.5 mg Clopidogrel Bisulfate (Clopidogrel Bisulfate 75 Mg Tablet) 75 mg PO DAILY [facility] [place] Last Admin: 10/06/24 08:02 Dose: 75 mg Docusate Sodium (Docusate Sodium 100 Mg Capsule) 100 mg PO BID PRN PRN Reason: Constipation Last Admin: 10/05/24 08:36 Dose: 100 mg Empagliflozin (Empagliflozin 10 Mg Tablet) 10 mg PO DAILY [facility] [place] Last Admin: 10/05/24 08:36 Dose: 10 mg Furosemide (Furosemide 40 Mg/4 Ml Vial) 40 mg IVPUSH DAILY [facility] [place]; Protocol Last Admin: 10/05/24 08:35 Dose: 40 mg Guaifenesin (Guaifenesin [place] 600 Mg Tab.Er.12h) 1,200 mg PO BID PRN PRN Reason: Cough Last Admin: 10/06/24 08:01 Dose: 1,200 mg Hydroxyzine HCl (Hydroxyzine Hcl 50 Mg Tablet) 50 mg PO Q4H PRN PRN Reason: moderate to severe anxiety Last Admin: 10/05/24 00:22 Dose: 50 mg Cefepime HCl (Maxipime) 2 gm in 50 mls @ 100 mls/hr IV Q12H [facility] [place] Last Infusion: 10/06/24 07:11 Dose: Infused Vancomycin HCl 1,250 mg/ (Sodium Chloride) 250 mls @ 166.667 mls/hr IV Q24H [facility] Latanoprost (Latanoprost 0.005 % Ophth Kristie 2.5 Ml Drops) 1 drop EYE-BOTH BEDTIME [facility] [place] Last Admin: 10/05/24 22:12 Dose: 1 drop Levothyroxine Sodium (Levothyroxine Sodium 50 Mcg Tablet) 50 mcg PO DAILY@0600 [facility] [place] Last Admin: 10/06/24 06:18 Dose: 50 mcg Loperamide HCl (Loperamide Hcl 2 Mg Capsule) 2 mg PO DAILY PRN PRN Reason: for each loose stool Magnesium Hydroxide (Milk Of Magnesia 30 Ml Oral.Susp) 30 ml PO DAILY PRN PRN Reason: Constipation Melatonin (Melatonin 3 Mg Tablet) 6 mg PO BEDTIME PRN PRN Reason: Insomnia Last Admin: 10/04/24 02:12 Dose: 6 mg Melatonin (Melatonin 3 Mg Tablet) 9 mg PO BEDTIME PRN PRN Reason: Insomnia Last Admin: 10/05/24 00:22 Dose: 9 mg Metoprolol Tartrate (Metoprolol Tartrate 100 Mg Tablet) 200 mg PO BID [facility] [place]; Protocol Last Admin: 10/05/24 21:56 Dose: 200 mg Metoprolol Tartrate (Metoprolol Tartrate 5 Mg/5 Ml Vial) 5 mg IVPUSH Q6H PRN; Protocol PRN Reason: For Heart rate > 110 Last Admin: 10/03/24 06:40 Dose: 5 mg Morphine Sulfate (Morphine Sulfate 2 Mg/Ml Cartridge) 2 mg IVPUSH Q4H PRN; Protocol PRN Reason: Pain, Severe (Pain Scale 7-10) Last Admin: 10/06/24 04:43 Dose: 2 mg Nicotine (Nicotine 21 Mg Patch.Td24) 21 mg TRANSDERMA DAILY PRN PRN Reason: nicotine withdrawal Nicotine Polacrilex (Nicotine Polacrilex 2 Mg Gum) 2 mg BUCCAL Q2H PRN PRN Reason: Nicotine Cravings Nystatin/Triamcinolone Acetonide (Nystatin/Triamcinolone Cream 15 Gm Tube) 1 appl TOPICAL BID [facility] [place]; Protocol Last Admin: 10/06/24 08:06 Dose: 1 appl Ondansetron HCl (Ondansetron Hcl 4 Mg/2 Ml Vial) 4 mg IVPUSH Q8H PRN PRN Reason: Nausea and Vomiting Pharmacy Consult (Consult Rx Vancomycin Dosing) 1 each MISCELLANE DAILY PRN PRN Reason: Consult order Sodium Chloride (0.9 % Sodium Chloride Flush 3 Ml Syringe) 3 ml IVFLUSH QSHIFT [facility] [place] Last Admin: 10/06/24 08:02 Dose: 3 ml Triamcinolone Acetonide (Triamcinolone Acet 0.5 % Cream 15 Gm Tube) 1 appl TOPICAL BID [facility] [place]; Protocol Last Admin: 10/06/24 08:07 Dose: 1 appl Venlafaxine HCl (Venlafaxine Hcl Er 150 Mg Cap.Er.24h) 150 mg PO DAILY [facility] [place] Last Admin: 10/06/24 08:01 Dose: 150 mg Zinc Acetate/Diphenhydramine (Diphenhydramine Hcl 2 % Cream 28 Gm Tube) 1 appl TOPICAL QID PRN; Protocol PRN Reason: Itching Last Admin: 10/05/24 00:22 Dose: 1 appl Home Medications ?Medication ?Instructions ?Recorded ?Confirmed ?Last Taken ?Type acetaminophen 325 mg tablet 650 mg PO Q4H PRN pain or fever 09/30/24 09/30/24 Unknown History aluminum-mag hydroxide-simethicone 30 ml PO QID PRN GI upset 09/30/24 09/30/24 Unknown History 200 mg-200 mg-20 mg/5 mL oral susp apixaban 5 mg tablet (Eliquis) 5 mg PO BID 09/30/24 09/30/24 Unknown History aspirin 81 mg tablet,delayed 81 mg PO DAILY 09/30/24 09/30/24 Unknown History release benzocaine 15 mg-menthol 3.6 mg 1 luiz mucous membrane Q2H PRN Sore 09/30/24 09/30/24 Unknown History lozenges Throat brimonidine 0.2 % eye drops 1 drp ophthalmic (eye) BID 09/30/24 09/30/24 Unknown History calcium carbonate 500 mg PO Q4H PRN Heartburn 09/30/24 09/30/24 Unknown History clonazepam 0.5 mg tablet 0.5 mg PO BID 09/30/24 09/30/24 Unknown History clonazepam 0.5 mg tablet 0.5 mg PO DAILY PRN severe anxiety 09/30/24 09/30/24 Unknown History or panic attack clopidogrel 75 mg tablet 75 mg PO DAILY 09/30/24 09/30/24 Unknown History digoxin 125 mcg (0.125 mg) tablet 125 mcg PO DAILY 09/30/24 09/30/24 Unknown History docusate sodium 100 mg capsule 100 mg PO BID PRN Constipation 09/30/24 09/30/24 Unknown History guaifenesin 600 mg tablet, 1,200 mg PO BID PRN Cough 09/30/24 09/30/24 Unknown History extended release 12 hr hydroxyzine pamoate 50 mg capsule 50 mg PO Q4H PRN moderate to 09/30/24 09/30/24 Unknown History severe anxiety ibuprofen 400 mg tablet 400 mg PO Q8H PRN bodyache, 09/30/24 09/30/24 Unknown History toothache, headache latanoprost 0.005 % eye drops 1 drp ophthalmic (eye) BEDTIME 09/30/24 09/30/24 Unknown History lenvatinib 10 mg/day (10 mg x 1) 10 mg PO DAILY 09/30/24 Unknown History capsule (Lenvima) levothyroxine 50 mcg tablet 50 mcg PO DAILY@0600 09/30/24 09/30/24 Unknown History loperamide 2 mg tablet 2 mg PO DAILY PRN for each loose 09/30/24 09/30/24 Unknown History stool melatonin 3 mg tablet 9 mg PO BEDTIME PRN Insomnia 09/30/24 09/30/24 Unknown History metoprolol tartrate 50 mg tablet 200 mg PO BID 09/30/24 09/30/24 Unknown History nicotine (polacrilex) 2 mg gum 2 mg buccal Q2H PRN nicotine 09/30/24 09/30/24 Unknown History withdrawal nicotine 21 mg/24 hr daily 1 patch transdermal DAILY PRN 09/30/24 09/30/24 Unknown History transdermal patch nicotine withdrawal ondansetron 4 mg disintegrating 4 mg PO Q6H PRN Nausea And Vomiting 09/30/24 09/30/24 Unknown History tablet simvastatin 20 mg tablet 20 mg PO BEDTIME 09/30/24 09/30/24 Unknown History venlafaxine 150 mg 150 mg PO DAILY 09/30/24 09/30/24 Unknown History capsule,extended release 24 hr Exam Height,Weight and Vital Signs: Height 5 ft 9 in Weight 86.183 kg Last Vital Signs Temp 98.4 F 10/06/24 07:37 Pulse 107 H 10/06/24 07:37 Resp 18 10/06/24 07:37 BP 122/72 10/06/24 07:37 Pulse Ox 90 L 10/06/24 07:37 O2 Del Method Nasal Cannula 10/06/24 07:37 O2 Flow Rate 4 10/06/24 07:37 Pertinent Lab Results Pertinent Lab Results: Laboratory Tests 09/30/24 09/30/24 10/01/24 01:21 07:53 13:04 WBC 10.8 8.9 9.6 RBC 4.48 4.95 5.05 Hgb 12.7 13.9 14.2 Hct 39.7 44.8 44.0 MCV 88.6 90.5 87.1 MCH 28.3 28.1 28.1 MCHC 32.0 31.0 32.3 RDW 14.7 14.8 14.5 Plt Count 410 H 347 398 MPV 11.1 11.4 11.3 Immature Gran % (Auto) 0.5 H Neut % (Auto) 70.8 Lymph % (Auto) 17.4 L [place] % (Auto) 9.2 Eos % (Auto) 1.2 Baso % (Auto) 0.9 Lymph # (Auto) 1.9 [place] # (Auto) 1.0 Eos # (Auto) 0.1 Baso # (Auto) 0.1 Abs Immat Gran (auto) 0.05 H Absolute Neuts (auto) 7.6 Absolute Nucleated RBC 0.000 0.000 0.000 Nucleated RBC % (auto) 0.0 0.0 0.0 O2 Saturation ABG pH at Pt Temp ABG pCO2 at Pt Temp ABG pO2 at Pt Temp ABG HCO3 ABG Base Excess (Actual) Sodium 143 142 141 Potassium 4.2 4.3 3.6 Chloride 112 H 109 H 103 Carbon Dioxide 22 20 L 26 Anion Gap 13 17 16 BUN 30 H 26 H 26 H Creatinine 1.20 0.97 1.13 Estim Creat Clear Calc 52.5 64.9 55.8 Estimated GFR 45 57 48 Random Glucose 123 H 100 96 Lactic Acid Calcium 9.3 9.3 9.2 Magnesium Total Bilirubin 0.4 AST 94 H ALT 111 H Alkaline Phosphatase 159 H Troponin I High Sens 15.7 B-Natriuretic Peptide 2710 H Total Protein 7.5 Albumin 3.6 TSH 2.87 2.37 Digoxin Influenza Type A (PCR) Influenza Type B (PCR) RSV RNA Qual (PCR) SARS-CoV-2 RNA (RT-PCR) Blood Type Antibody Screen 10/02/24 10/02/24 10/03/24 10:52 12:36 08:06 WBC 7.1 RBC 4.83 Hgb 13.5 Hct 42.0 MCV 87.0 MCH 28.0 MCHC 32.1 RDW 14.4 Plt Count 362 MPV 11.0 Immature Gran % (Auto) 0.4 Neut % (Auto) 75.7 H Lymph % (Auto) 6.3 L [place] % (Auto) 11.0 Eos % (Auto) 5.9 H Baso % (Auto) 0.7 Lymph # (Auto) 0.5 L [place] # (Auto) 0.8 Eos # (Auto) 0.4 Baso # (Auto) 0.1 Abs Immat Gran (auto) 0.03 Absolute Neuts (auto) 5.4 Absolute Nucleated RBC 0.000 Nucleated RBC % (auto) 0.0 O2 Saturation ABG pH at Pt Temp ABG pCO2 at Pt Temp ABG pO2 at Pt Temp ABG HCO3 ABG Base Excess (Actual) Sodium 140 Potassium 3.3 Chloride 105 Carbon Dioxide 23 Anion Gap 15 BUN 26 H 22 H Creatinine 1.01 0.91 Estim Creat Clear Calc 62.4 69.3 Estimated GFR 55 > 60 Random Glucose 104 Lactic Acid Calcium 9.3 Magnesium 1.9 Total Bilirubin AST ALT Alkaline Phosphatase Troponin I High Sens B-Natriuretic Peptide Total Protein Albumin TSH Digoxin 0.5 L Influenza Type A (PCR) Influenza Type B (PCR) RSV RNA Qual (PCR) SARS-CoV-2 RNA (RT-PCR) Blood Type Antibody Screen 10/04/24 10/05/24 10/06/24 07:26 16:51 04:41 WBC 10.6 RBC 5.53 H Hgb 15.3 Hct 47.8 H MCV 86.4 MCH 27.7 MCHC 32.0 RDW 14.6 Plt Count 381 MPV 11.3 Immature Gran % (Auto) 0.6 H Neut % (Auto) 75.0 H Lymph % (Auto) 6.7 L [place] % (Auto) 11.5 H Eos % (Auto) 5.7 H Baso % (Auto) 0.5 Lymph # (Auto) 0.7 L [place] # (Auto) 1.2 Eos # (Auto) 0.6 H Baso # (Auto) 0.1 Abs Immat Gran (auto) 0.06 H Absolute Neuts (auto) 7.9 Absolute Nucleated RBC 0.000 Nucleated RBC % (auto) 0.0 O2 Saturation 93.0 ABG pH at Pt Temp 7.49 H ABG pCO2 at Pt Temp 24 L ABG pO2 at Pt Temp 64 L ABG HCO3 19 L ABG Base Excess (Actual) -2.0 Sodium 140 138 Potassium 3.3 3.4 Chloride 101 100 Carbon Dioxide 27 25 Anion Gap 15 16 BUN 30 H 36 H Creatinine 1.27 1.72 H Estim Creat Clear Calc 49.6 36.6 Estimated GFR 42 29 Random Glucose 97 112 Lactic Acid 1.8 Calcium 9.5 9.2 Magnesium Total Bilirubin AST ALT Alkaline Phosphatase Troponin I High Sens B-Natriuretic Peptide Total Protein Albumin TSH Digoxin Influenza Type A (PCR) Influenza Type B (PCR) RSV RNA Qual (PCR) SARS-CoV-2 RNA (RT-PCR) Blood Type Antibody Screen 10/06/24 10/06/24 10/06/24 04:49 05:58 08:22 WBC 13.6 H RBC 5.02 Hgb 14.3 Hct 43.5 MCV 86.7 MCH 28.5 MCHC 32.9 RDW 14.8 Plt Count 339 MPV 11.1 Immature Gran % (Auto) 0.7 H Neut % (Auto) 88.1 H Lymph % (Auto) 4.1 L [place] % (Auto) 6.5 Eos % (Auto) 0.4 Baso % (Auto) 0.2 Lymph # (Auto) 0.6 L [place] # (Auto) 0.9 Eos # (Auto) 0.1 Baso # (Auto) 0.0 Abs Immat Gran (auto) 0.10 H Absolute Neuts (auto) 12.0 H Absolute Nucleated RBC 0.000 Nucleated RBC % (auto) 0.0 O2 Saturation ABG pH at Pt Temp ABG pCO2 at Pt Temp ABG pO2 at Pt Temp ABG HCO3 ABG Base Excess (Actual) Sodium 140 Potassium 4.1 D Chloride 106 Carbon Dioxide 21 L Anion Gap 17 BUN 28 H Creatinine 1.35 Estim Creat Clear Calc 46.7 Estimated GFR 39 Random Glucose 105 Lactic Acid 1.9 Calcium 9.4 Magnesium Total Bilirubin AST ALT Alkaline Phosphatase Troponin I High Sens B-Natriuretic Peptide 1894 H Total Protein Albumin TSH Digoxin Influenza Type A (PCR) NEGATIVE Influenza Type B (PCR) NEGATIVE RSV RNA Qual (PCR) POSITIVE A SARS-CoV-2 RNA (RT-PCR) NEGATIVE Blood Type Antibody Screen 10/06/24 08:49 WBC RBC Hgb Hct MCV MCH MCHC RDW Plt Count MPV Immature Gran % (Auto) Neut % (Auto) Lymph % (Auto) [place] % (Auto) Eos % (Auto) Baso % (Auto) Lymph # (Auto) [place] # (Auto) Eos # (Auto) Baso # (Auto) Abs Immat Gran (auto) Absolute Neuts (auto) Absolute Nucleated RBC Nucleated RBC % (auto) O2 Saturation ABG pH at Pt Temp ABG pCO2 at Pt Temp ABG pO2 at Pt Temp ABG HCO3 ABG Base Excess (Actual) Sodium Potassium Chloride Carbon Dioxide Anion Gap BUN Creatinine Estim Creat Clear Calc Estimated GFR Random Glucose Lactic Acid Calcium Magnesium Total Bilirubin AST ALT Alkaline Phosphatase Troponin I High Sens B-Natriuretic Peptide Total Protein Albumin TSH Digoxin Influenza Type A (PCR) Influenza Type B (PCR) RSV RNA Qual (PCR) SARS-CoV-2 RNA (RT-PCR) Blood Type AB Positive Antibody Screen NEGATIVE Airway Mallampati Class: II TM Dist: >3cm Neck ROM: Full Heart: IRRR Lungs: CTA Assessment and Plan Assessment Anesthesia Assessment: Anesthesia Plan Discussed and Chart Reviewed Final Anesthetic Review Family History of Problems with Anesthesia: No History of Problems with Anesthesia: No NPO: Yes ASA Class: IV Final Preanesthetic Review: No Changes in Pt Med Stat, Meds/Allgs Chart Reviewed, Consent Obtained/Reviewed and Anes Risks/Benef Reviewed Patient Risk: High Procedure Risk: Low Anesthetic Plan Anesthetic Plan: TIVA Disposition: Standard PACU
--- NOTE | 2024-10-06 10:00 | CA_ITS ---
Transesophageal Echocardiogram Amended Patient (Last, First, Middle): Antonia Mandujano, Gender: Female Date of : 1955 Age: 69 Procedure Date: 10/06/2024 Procedure Type: Transesophageal Echocardiogram Location: [facility] [place] Height: 175.26 cm Weight: 86.18 kg BSA: 2.02 m2 Heart Rate: bpm BP: 122 / 72 mmHg [employer]: MIRIAM Referring MD: Dhiraj Landin MD Symptoms: Atrial fibrillation Conclusion: ??? There is no evidence of a thrombus in the left atrial appendage. Findings Procedure Information Contrast agent, definity, is being given per protocol without apparent complications. The patient receives contrast. Consent was obtained prior to the procedure. Pre BIBI oral cavity was checked and revealed no overcrowding. The adult 3D probe was passed with no difficulty. Left Ventricle Normal left ventricular cavity size. The left ventricular systolic function is mild to moderately decreased. Right Ventricle Normal right ventricular cavity size and systolic function. Atria There is no evidence of a thrombus in the left atrial appendage. There is no evidence of interatrial shunt by color Doppler. Aortic Valve There is a normal trileaflet aortic valve. There is mild calcification of the aortic valve. There is no aortic valve stenosis. There is trace (trivial) aortic valve regurgitation. Mitral Valve The mitral valve appears normal. There is mild mitral valve regurgitation. There is no mitral valve stenosis. Pulmonic Valve The pulmonic valve was not well visualized. Tricuspid Valve There is trace tricuspid valve regurgitation. Great Vessels The asc aorta is normal in size. [id number] atherosclerotic plaque in the arch and descending thoracic aorta. Pericardium/Pleural There is no evidence of pericardial effusion. Prior Study Comparison No significant change compared to prior study dated: 10/01/2024. Updated by Dhiraj Landin on 02:34 PM with Status of Final Dhiraj Landin MD electronically signed on 10/07/2024 2:34:21 PM with status of Final
--- NOTE | 2024-10-06 11:16 | ECG_ITS ---
Test Reason : POST CARDIOVERSION Blood Pressure : */* mmHG Vent. Rate : 68 BPM Atrial Rate : 68 BPM P-R Int : 178 ms QRS Dur : 90 ms QT Int : 452 ms P-R-T Axes : 50 -15 187 degrees QTcB Int : 480 ms Sinus rhythm with Premature atrial complexes Possible Left atrial enlargement ST & T wave abnormality, consider anterolateral ischemia Prolonged QT Abnormal ECG When compared with ECG of 30-Sep-2024 03:21, Rhtyhm change Referred By: Neelima Waller Electronically Signed By: NEELIMA WALLER
--- NOTE | 2024-10-06 12:21 | PC.NURSE ---
Addendum entered by Michaela Deal RN 10/06/24 12:51: repeat BP 117/42. Dr. Lawler aware, no new orders at this time. Addendum entered by Michaela Deal RN 10/06/24 12:30: orders received for 1L NS IVF bolus, infusing now. Original Note: patient SBP remains 80's post operative. tigerconnect sent to hospitalist Dr. Lawler, awaiting response.
[2024-10-06] MEDS: 0.9 % Sodium Chloride 1,000 ML 999 ML IV (12:33)
--- NOTE | 2024-10-06 13:26 | PC.NURSE ---
Patient returns from PACU at this time with half bolus still infusing and repeat BP upon arrival lower than BP taken for transfer back to unit from PACU. In addition patient converted back into afib during transfer back to unit. MD Daylin aware.
[2024-10-06] MEDS: Atorvastatin Calcium 10 MG TABLET PO (20:33)
[2024-10-06] MEDS: Latanoprost 0.005 % Ophth Sol 2.5 ML DROPS 1 DROP EYE-BOTH (20:34)
[2024-10-06] MEDS: Melatonin 3 MG TABLET 9 MG PO (21:40)
[2024-10-07 03:40] VITALS: BP 103/63; PULSE 100; RESP 20; TEMP 35.9; O2SAT 96
[2024-10-07] MEDS: hydrOXYzine HCL 50 MG TABLET PO (04:24)
[2024-10-07] MEDS: cefEPime HCl/D5W 2 GM/50 ML PIGGYBACK IV ×2 (05:19→16:56)
[2024-10-07] MEDS: Levothyroxine Sodium 50 MCG TABLET PO (05:22)
[2024-10-07 07:22] LABS: MANUAL DIFF FLAG NO
[2024-10-07 07:26] LABS: Basophils Absolute Auto 0.1 X10*3/uL (0.0-0.2); Basophils Percent Auto 0.6 % (0-2); Eosinophils Absolute Auto 0.2 X10*3/uL (0.0-0.4); Eosinophils Percent Auto 2.2 % (0-4); Hematocrit 35.1 % (37.0-47.0); Hemoglobin 11.1 g/dl (12.0-16.0); Imm Gran Abs Auto 0.03 X10*3/uL (0.00-0.03); Imm Gran Pct Auto 0.4 % (0.0-0.4); Lymphocytes Absolute Auto 0.7 X10*3/uL (1.2-4.9); Lymphocytes Percent Auto 8.4 % (20-40); Mean Corpuscular HGB Conc 31.6 g/dl (31.0-35.0); Mean Corpuscular Hemoglobin 27.9 pg (27.0-33.0); Mean Corpuscular Volume 88.2 fL (80.0-98.0); Mean Platelet Volume 11.7 fL (9.4-12.3); Monocytes Absolute Auto 0.6 X10*3/uL (0.1-1.2); Monocytes Percent Auto 7.3 % (2-11); Neutrophils Absolute Auto 6.7 x10*3/uL (2.0-8.3); Neutrophils Percent Auto 81.1 % (45-73); Platelet Count 194 X10*3/uL (160-400); Red Blood Count 3.98 X10*6/uL (4.20-5.50); Red Cell Distribution Width 14.9 % (11.0-16.0); White Blood Count 8.2 X10*3/uL (4.8-10.8)
[2024-10-07 07:30] VITALS: BP 104/70; PULSE 90; RESP 16; TEMP 36.3; O2SAT 98
[2024-10-07 07:44] LABS: B Type Natriuretic Peptide 1420 pg/mL (<100)
[2024-10-07 07:52] LABS: Anion Gap 11 (12-20); Blood Urea Nitrogen 21 mg/dL (9-16); Calcium 8.6 mg/dL (8.4-10.2); Carbon Dioxide 21 mmol/L (22-29); Chloride 113 mmol/L (96-108); Creatinine Clr Calc Pharmacy 78.8; Estimated Glomerular Filt Rate > 60; Glucose Random 83 mg/dL (60-115); Potassium 3.2 mmol/L (3.3-5.1); Sodium 142 mmol/L (135-145)
[2024-10-07] MEDS: 0.9 % Sodium Chloride Flush 3 ML SYRINGE IVFLUSH ×3 (08:19→20:38)
[2024-10-07] MEDS: vancomycin HCL 1,250 MG in 0.9 % Sodium Chloride 250 ML 166.67 MG IV (08:20)
[2024-10-07] MEDS: Venlafaxine HCl ER 150 MG CAP.ER.24H PO (08:21)
[2024-10-07] MEDS: Aspirin Enteric Coated 81 MG TABLET.DR PO (08:21)
[2024-10-07] MEDS: Clopidogrel Bisulfate 75 MG TABLET PO (08:21)
[2024-10-07] MEDS: Acetaminophen 325 MG TABLET 650 MG PO (08:21)
[2024-10-07] MEDS: guaiFENesin LA 600 MG TAB.ER.12H 1200 MG PO (08:21)
[2024-10-07] MEDS: Amiodarone HCL 200 MG TABLET 400 MG PO ×2 (08:21→20:36)
[2024-10-07] MEDS: Apixaban 5 MG TABLET PO ×2 (08:21→20:36)
[2024-10-07] MEDS: Nystatin/Triamcinolone Cream 15 GM TUBE 1 APPL TOPICAL ×2 (08:23→20:37)
[2024-10-07] MEDS: Brimonidine Tartrate 0.2% Oph 5 ML BOTTLE 1 DROP EYE-BOTH ×2 (08:23→20:37)
[2024-10-07] MEDS: Triamcinolone Acet 0.5 % Cream 15 GM TUBE 1 APPL TOPICAL ×2 (08:23→20:37)
--- NOTE | 2024-10-07 10:54 | HE.PHANOTE ---
VANCO TROUGH DUE 10/08 @ 0600
--- NOTE | 2024-10-07 11:06 | PM.PNCARD ---
Subjective Subjective Date of Service: 10/07/24 Interval history: Patient underwent BIBI/cardioversion yesterday. However, she did not stay long in sinus and went back into atrial fibrillation. She just states overall she does not feel too good. Nothing specific but in general not feeling good. Also got diagnosed with RSV. Review of Systems Review of Systems Yes all other systems are reviewed and are negative Constitutional: Reports as per HPI and Reports no additional constitutional complaints Eyes: Reports as per HPI and Denies no additional eye complaints Denies system reviewed and no additional complaints, except as documented and Reports as per HPI Cardiovascular: Reports as per HPI, Reports no additional cardiovascular complaints, Denies acrocyanosis, Denies cool extremities, Denies chest pain, Denies leg edema, Denies lightheadedness, Denies palpitations and Reports dyspnea Respiratory: Reports as per HPI, Denies no additional respiratory complaints and Reports dyspnea Gastrointestinal: Reports as per HPI and Denies no additional gastrointestinal complaints Genitourinary: Reports as per HPI Musculoskeletal: Reports no additional musculoskeletal complaints and Reports as per HPI Skin/Breast: Reports system reviewed and no additional complaints, except as docu Reports system reviewed and no additional complaints, except as documented and Reports as per HPI Psychiatric: Reports no additional psychiatric complaints and Reports as per HPI Endocrine: Reports no additional endocrine complaints, Reports as per HPI and Denies palpitations Hematologic/Lymphatic: Reports no additional hematologic/lymphatic complaints and Reports as per HPI Allergic/Immunologic: Reports no additional allergic/immunologic complaints and Reports as per HPI Physical Exam Vital Signs: Last Vital Signs Temp 97.3 F 10/07/24 07:30 Pulse 90 10/07/24 07:30 Resp 16 10/07/24 07:30 BP 104/70 10/07/24 07:30 Pulse Ox 98 10/07/24 07:30 O2 Del Method Nasal Cannula 10/07/24 07:30 O2 Flow Rate 4 10/07/24 07:30 BMI result Body Mass Index 28.1 Const General: comfortable and no acute distress Orientation/consciousness: patient oriented x3 HEENT Other: Unremarkable Head: Yes normal to inspection Neck Neck: Yes normal visual inspection Chest Chest palpation & inspection: normal inspection of the chest Resp Auscultation: wheezes Cardio Palpation: normal PMI Heart sounds: S1 normal heart sound present, S2 normal heart sound present, no gallops, no murmurs and no rubs GI Palpation (GI): Soft to palpation Back/Spine/Pelvis Other: unremarkable Skin General skin exam: no rashes or lesions noted Neuro General: patient oriented x3 Extrem General: Yes normal to inspection Psych Mental Status: mental status grossly normal Objective Labs and Meds 10/07/24 06:57 10/07/24 06:57 Lab results: Laboratory Results - last 24 hr 10/07/24 06:57 WBC 8.2 RBC 3.98 L D Hgb 11.1 L D Hct 35.1 L MCV 88.2 MCH 27.9 MCHC 31.6 RDW 14.9 Plt Count 194 D MPV 11.7 Immature Gran % (Auto) 0.4 Neut % (Auto) 81.1 H Lymph % (Auto) 8.4 L [place] % (Auto) 7.3 Eos % (Auto) 2.2 Baso % (Auto) 0.6 Lymph # (Auto) 0.7 L [place] # (Auto) 0.6 Eos # (Auto) 0.2 Baso # (Auto) 0.1 Abs Immat Gran (auto) 0.03 Absolute Neuts (auto) 6.7 Absolute Nucleated RBC 0.000 Nucleated RBC % (auto) 0.0 Sodium 142 Potassium 3.2 L D Chloride 113 H Carbon Dioxide 21 L Anion Gap 11 L BUN 21 H Creatinine 0.80 Estim Creat Clear Calc 78.8 Estimated GFR > 60 Random Glucose 83 Calcium 8.6 D Magnesium 2.0 B-Natriuretic Peptide 1420 H Progress Note: A&P Assessment and plan (1) Atrial fibrillation with rapid ventricular response: Status: Acute Assessment and Plan: Had cardioversion yesterday after BIBI. Went briefly into sinus rhythm and then back into atrial fibrillation. Keep her on amiodarone, beta-blockers. Rate seems better now. Probably re-attempt cardioversion in a few weeks' time. (2) Acute congestive heart failure: Status: Acute Assessment and Plan: In the echocardiogram, LVEF is 40-45%. 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 On intermittent diuretics. Most likely RSV he is making things worse. (3) Gangrene of toe of both feet: Status: Acute Assessment and Plan: Plan for angiogram per vascular. Time Spent With Patient Time: Total time managing care of this patient today ____ minutes. Progress Note: Quality Stroke Does the patient have a stroke diagnosis?: No Procedures Date of Service Date of Service: 10/07/24
[2024-10-07 11:29] VITALS: BP 105/60; PULSE 80; RESP 16; TEMP 36.4; O2SAT 99
--- NOTE | 2024-10-07 13:46 | P.PNIM_ITS ---
Subjective Subjective Date of Service: 10/07/24 Interval History: seen and evaluated this morning back to Afib after brief period in sinus post cardioversion HR better controlled feels better overall +ve for RSV No other events Review of Systems Review of Systems: Yes all other systems are reviewed and are negative Physical Exam 2 Vital Signs: Vital Signs: Last Vital Signs Temp 97.6 F 10/07/24 11:29 Pulse 80 10/07/24 11:29 Resp 16 10/07/24 11:29 BP 105/60 10/07/24 11:29 Pulse Ox 99 10/07/24 11:29 O2 Del Method Nasal Cannula 10/07/24 11:29 O2 Flow Rate 2 10/07/24 11:29 BMI result Body Mass Index 28.1 Const: Other: Constitutional : Awake, interactive, in distress and anxious Neck : Normal inspection, Supple Cardiovascular : irregular irregular , no JVP, trace lower extremity edema Respiratory : good bilateral air entry, no crackles, wheezes or rhonchi Gastrointestinal: soft, lax, Normal bowel sounds, Non tender Skin : Warm, Dry, right big toe gangrene , extensive rash on her neck, back and lower extremities Neurological : Alert & oriented x3, No focal deficit Objective Data Active Medications Acetaminophen (Acetaminophen 325 Mg Tablet) 650 mg PO Q6H PRN PRN Reason: Pain, Mild 1-3,fever,headache Last Admin: 10/07/24 08:21 Dose: 650 mg Documented By: BRIGIDA Al Hydroxide/Mg Hydroxide (Magnesium Hydrox/Alum Hydrox 30 Ml Oral.Susp) 30 ml PO QID PRN PRN Reason: GI upset Amiodarone HCl (Amiodarone Hcl 200 Mg Tablet) 400 mg PO BID [facility] Last Admin: 10/07/24 08:21 Dose: 400 mg Documented By: BRIGIDA Apixaban (Apixaban 5 Mg Tablet) 5 mg PO BID [facility] Last Admin: 10/07/24 08:21 Dose: 5 mg Documented By: BRIGIDA Aspirin (Aspirin Enteric Coated 81 Mg Tablet.) 81 mg PO DAILY [facility] Last Admin: 10/07/24 08:21 Dose: 81 mg Documented By: BRIGIDA Atorvastatin Calcium (Atorvastatin Calcium 10 Mg Tablet) 10 mg PO BEDTIME [facility] Last Admin: 10/06/24 20:33 Dose: 10 mg Documented By: SAL Benzocaine (Throat Lozenge, Medicated Lozenge) 1 lozenge MUCOUS MEM Q2H PRN PRN Reason: Sore Throat Last Admin: 10/02/24 17:09 Dose: 1 lozenge Documented By: MARION Brimonidine Tartrate (Brimonidine Tartrate 0.2% Oph 5 Ml Bottle) 1 drop EYE- BOTH BID [facility] Last Admin: 10/07/24 08:23 Dose: 1 drop Documented By: BRIGIDA Calcium Carbonate (Calcium Carbonate 750 Mg Tab.Chew) 750 mg PO Q4H PRN PRN Reason: Heartburn Clonazepam (Clonazepam 0.5 Mg Tablet) 0.5 mg PO DAILY PRN PRN Reason: severe anxiety or panic attack Last Admin: 10/04/24 16:21 Dose: 0.5 mg Documented By: BIANCA Clopidogrel Bisulfate (Clopidogrel Bisulfate 75 Mg Tablet) 75 mg PO DAILY [facility] Last Admin: 10/07/24 08:21 Dose: 75 mg Documented By: BRIGIDA Docusate Sodium (Docusate Sodium 100 Mg Capsule) 100 mg PO BID PRN PRN Reason: Constipation Last Admin: 10/05/24 08:36 Dose: 100 mg Documented By: BRIGIDA Empagliflozin (Empagliflozin 10 Mg Tablet) 10 mg PO DAILY [facility] Last Admin: 10/05/24 08:36 Dose: 10 mg Documented By: BRIGIDA Furosemide (Furosemide 40 Mg/4 Ml Vial) 40 mg IVPUSH DAILY [facility]; Protocol Last Admin: 10/05/24 08:35 Dose: 40 mg Documented By: BRIGIDA Guaifenesin (Guaifenesin La 600 Mg Tab.Er.12h) 1,200 mg PO BID PRN PRN Reason: Cough Last Admin: 10/07/24 08:21 Dose: 1,200 mg Documented By: BRIGIDA Hydroxyzine HCl (Hydroxyzine Hcl 50 Mg Tablet) 50 mg PO Q4H PRN PRN Reason: moderate to severe anxiety Last Admin: 10/07/24 04:24 Dose: 50 mg Documented By: SAL Cefepime HCl (Maxipime) 2 gm in 50 mls @ 100 mls/hr IV Q12H [facility] Last Infusion: 10/07/24 06:16 Dose: Infused Documented By: SAL Vancomycin HCl 1,250 mg/ (Sodium Chloride) 250 mls @ 166.667 mls/hr IV Q24H [facility] Last Infusion: 10/07/24 12:07 Dose: Infused Documented By: BRIGIDA Latanoprost (Latanoprost 0.005 % Ophth Kristie 2.5 Ml Drops) 1 drop EYE-BOTH BEDTIME [facility] Last Admin: 10/06/24 20:34 Dose: 1 drop Documented By: SAL Levothyroxine Sodium (Levothyroxine Sodium 50 Mcg Tablet) 50 mcg PO DAILY@0600 [facility] Last Admin: 10/07/24 05:22 Dose: 50 mcg Documented By: SAL Loperamide HCl (Loperamide Hcl 2 Mg Capsule) 2 mg PO DAILY PRN PRN Reason: for each loose stool Magnesium Hydroxide (Milk Of Magnesia 30 Ml Oral.Susp) 30 ml PO DAILY PRN PRN Reason: Constipation Melatonin (Melatonin 3 Mg Tablet) 9 mg PO BEDTIME PRN PRN Reason: Insomnia Last Admin: 10/06/24 21:40 Dose: 9 mg Documented By: SAL Metoprolol Tartrate (Metoprolol Tartrate 5 Mg/5 Ml Vial) 5 mg IVPUSH Q6H PRN; Protocol PRN Reason: For Heart rate > 110 Last Admin: 10/03/24 06:40 Dose: 5 mg Documented By: AIMEE Metoprolol Tartrate (Metoprolol Tartrate 50 Mg Tablet) 50 mg PO Q6H NACHO; Protocol Morphine Sulfate (Morphine Sulfate 2 Mg/Ml Cartridge) 2 mg IVPUSH Q4H PRN; Protocol PRN Reason: Pain, Severe (Pain Scale 7-10) Last Admin: 10/06/24 04:43 Dose: 2 mg Documented By: AIMEE Naloxone HCl (Naloxone Hcl 0.4 Mg/Ml Vial) 0.04 mg IVPUSH Q5M PRN PRN Reason: Excessive sedation or RR < 8 Nicotine (Nicotine 21 Mg Patch.Td24) 21 mg TRANSDERMA DAILY PRN PRN Reason: nicotine withdrawal Nicotine Polacrilex (Nicotine Polacrilex 2 Mg Gum) 2 mg BUCCAL Q2H PRN PRN Reason: Nicotine Cravings Nystatin/Triamcinolone Acetonide (Nystatin/Triamcinolone Cream 15 Gm Tube) 1 appl TOPICAL BID NACHO; Protocol Last Admin: 10/07/24 08:23 Dose: 1 appl Documented By: BRIGIDA Ondansetron HCl (Ondansetron Hcl 4 Mg/2 Ml Vial) 4 mg IVPUSH Q8H PRN PRN Reason: Nausea and Vomiting Pharmacy Consult (Consult Rx Vancomycin Dosing) 1 each MISCELLANE DAILY PRN PRN Reason: Consult order Sodium Chloride (0.9 % Sodium Chloride Flush 3 Ml Syringe) 3 ml IVFLUSH QSHIFT [facility] Last Admin: 10/07/24 12:06 Dose: 3 ml Documented By: BRIGIDA Triamcinolone Acetonide (Triamcinolone Acet 0.5 % Cream 15 Gm Tube) 1 appl TOPICAL BID NACHO; Protocol Last Admin: 10/07/24 08:23 Dose: 1 appl Documented By: BRIGIDA Venlafaxine HCl (Venlafaxine Hcl Er 150 Mg Cap.Er.24h) 150 mg PO DAILY NACHO Last Admin: 10/07/24 08:21 Dose: 150 mg Documented By: BRIGIDA Zinc Acetate/Diphenhydramine (Diphenhydramine Hcl 2 % Cream 28 Gm Tube) 1 appl TOPICAL QID PRN; Protocol PRN Reason: Itching Last Admin: 10/05/24 00:22 Dose: 1 appl Documented By: AIMEE Labs 10/07/24 06:57 10/07/24 06:57 Labs: Laboratory Results - last 24 hr 10/07/24 06:57 MCV 88.2 MCH 27.9 MCHC 31.6 RDW 14.9 Plt Count 194 D MPV 11.7 Immature Gran % (Auto) 0.4 Neut % (Auto) 81.1 H Lymph % (Auto) 8.4 L [place] % (Auto) 7.3 Eos % (Auto) 2.2 Baso % (Auto) 0.6 Lymph # (Auto) 0.7 L [place] # (Auto) 0.6 Eos # (Auto) 0.2 Baso # (Auto) 0.1 Abs Immat Gran (auto) 0.03 Absolute Neuts (auto) 6.7 Absolute Nucleated RBC 0.000 Nucleated RBC % (auto) 0.0 Anion Gap 11 L Estim Creat Clear Calc 78.8 Estimated GFR > 60 Random Glucose 83 Calcium 8.6 D Magnesium 2.0 B-Natriuretic Peptide 1420 H Microbiology Microbiology Results: Microbiology 10/06/24 07:43 Blood Culture - Preliminary Blood - Venous No growth after 24 hours. 10/06/24 07:43 Blood Culture - Preliminary Blood - Venous No growth after 24 hours. Assessment and Plan (1) RSV (respiratory syncytial virus pneumonia): Status: Acute (2) Acute congestive heart failure: Status: Acute (3) Atrial fibrillation with rapid ventricular response: Status: Acute (4) Acute respiratory failure with hypoxia: Status: Acute (5) Acute kidney injury: Status: Acute Plan 69/F with pertinent history of hypothyroidism, history of endometrial cancer, mood disorder, tobacco use disorder, atrial fibrillation on Eliquis, had a pacemaker at [facility] on 09/12/24 after presenting with syncope and and HR in 20s and 30, and had a pacemaker inserted for sick sinus syndrome, patient was also noted at that time to have gangrenous toes--which she states has been ongoing since last summer, following pacemaker, she was sent to [facility] for Bipolar. She was sent to the ED on this occasion due to palpitations and shortness of breath and admitted for AFIB with RVR and Heart failure and noted to have a gangrene of the foot that has been ongoin AFib with RVR. Failed Cardioversion on 10/06, back to Afib Continue Metoprolol 50 mg Q6 Continue Amiodarone 400mg bid 10/03 Continue Eliquis. Hold IV Lasix for ALEJANDRO Cardiology following. medical management for now PRN IV Metoprolol as needed Keep on Tele ALEJANDRO Cr improved to 0.8 restart Lasix as tolerated follow I\O Hypoxia 2/2 HFrEF, possible tachycardia mediated. repeat CXR hold IV Lasix continue jardiance follow BNP, trending down Mild acute hypokalemia replacement given follow BMP Viral sepsis 2/2 RSV infection and LLL pneumonia complicated with Hypotension not due to severe sepsis LA normal covered with empirical IV Abx of Cefepime and Vancomycin pending final cultures Wean O2 down as toelrated PAD with gangrene of toes looks stable vascular consult, for angiogram as outpatient in few weeks Physical deconditioning PT rec SNF placement extensive rash reported as previous drug eruption Start steroid and nystatin cream follow response HypOthyroidism On Synthroid HLD--statin CAD/PAD on plavix, ASA, eliquis, metoprolol Mood disorder/Bipolar Continue home mood stabilizers CARE consult before discharge History of Endometrial cancer CT angiogram at [facility] on 09/23 showed thickening of vaginal cuffing suggestive of metastic disease and will need to follow up with her oncologist Tobacco use disorder NRT while in the hospital DVT prophylaxis: Maria Teresaqushahnaz Full code The patient will need overnight stay for Afib w RvR control , Hypoxia on O2 supplement pending safe discharge planning and need of IV medications Quality Stroke Does the patient have a stroke diagnosis?: No VTE Prior VTE?: No VTE Risk Level:: Medical - moderate - high VTE Device Contraindication: Treatment Not Indicated VTE Drug Contraindication: N/A - Med Ordered
--- NOTE | 2024-10-07 14:50 | HO.POSTANES ---
Post Anesthesia Evaluation Post Anesthesia Evaluation Date of Service: 10/07/24 Vital Signs: Vital Signs Temp Pulse Resp BP Pulse Ox O2 Del Method O2 Flow Rate 10/07/24 11:29 97.6 F 80 16 105/60 99 Nasal Cannula 2 10/07/24 07:30 97.3 F 90 16 104/70 98 Nasal Cannula 4 10/07/24 03:40 96.7 F L 100 20 103/63 96 Nasal Cannula 4 Anesthesia: TIVA Mental Status: Awake Pain Control: Satisfactory Nausea/Vomiting: None Hydration: Adequate Anesthesia-Related Issues: No Anes. Related Issues
[2024-10-07 15:44] VITALS: BP 98/53; PULSE 97; RESP 14; TEMP 36.3; O2SAT 98
[2024-10-07] MEDS: Potassium Chloride Packet 20 MEQ PACKET 40 MEQ PO (16:53)
[2024-10-07 19:37] VITALS: BP 125/55; PULSE 100; RESP 22; TEMP 35.6; O2SAT 96
[2024-10-07] MEDS: Atorvastatin Calcium 10 MG TABLET PO (20:37)
[2024-10-07] MEDS: Latanoprost 0.005 % Ophth Sol 2.5 ML DROPS 1 DROP EYE-BOTH (20:37)
[2024-10-07 21:49] LABS: ABG Refer to POC result
[2024-10-07 23:05] VITALS: BP 115/85; PULSE 102; RESP 18; TEMP 35.8; O2SAT 98
[2024-10-08] VITALS (9 sets, daily range): BP systolic 99–136; BP diastolic 62–98; PULSE 70–120; RESP 17–22; TEMP 36.2–37.3; O2SAT 98–99
[2024-10-08] MEDS: clonazePAM 0.5 MG TABLET PO ×2 (00:49→23:58)
[2024-10-08] MEDS: Melatonin 3 MG TABLET 9 MG PO ×2 (00:50→23:58)
[2024-10-08] MEDS: Levothyroxine Sodium 50 MCG TABLET PO (05:29)
[2024-10-08] MEDS: cefEPime HCl/D5W 2 GM/50 ML PIGGYBACK IV (05:29)
[2024-10-08] MEDS: Morphine Sulfate 2 MG/ML CARTRIDGE IVPUSH ×2 (05:30→21:42)
[2024-10-08] MEDS: Apixaban 5 MG TABLET PO ×2 (08:12→21:35)
[2024-10-08] MEDS: Acetaminophen 325 MG TABLET 650 MG PO (08:12)
[2024-10-08] MEDS: 0.9 % Sodium Chloride Flush 3 ML SYRINGE IVFLUSH ×3 (08:12→21:35)
[2024-10-08] MEDS: Amiodarone HCL 200 MG TABLET 400 MG PO ×2 (08:12→21:35)
[2024-10-08] MEDS: Aspirin Enteric Coated 81 MG TABLET.DR PO (08:12)
[2024-10-08] MEDS: Venlafaxine HCl ER 150 MG CAP.ER.24H PO (08:12)
[2024-10-08] MEDS: guaiFENesin LA 600 MG TAB.ER.12H 1200 MG PO ×2 (08:12→21:41)
[2024-10-08] MEDS: Clopidogrel Bisulfate 75 MG TABLET PO (08:12)
[2024-10-08] MEDS: Metoprolol Succinate ER 100 MG TAB.ER.24H PO ×2 (08:14→21:35)
[2024-10-08] MEDS: Brimonidine Tartrate 0.2% Oph 5 ML BOTTLE 1 DROP EYE-BOTH ×2 (08:16→21:36)
[2024-10-08] MEDS: Nystatin/Triamcinolone Cream 15 GM TUBE 1 APPL TOPICAL ×2 (08:16→21:36)
[2024-10-08] MEDS: Triamcinolone Acet 0.5 % Cream 15 GM TUBE 1 APPL TOPICAL ×2 (08:16→21:36)
[2024-10-08 09:20] LABS: Creatinine Clr Calc Pharmacy 81.9; Estimated Glomerular Filt Rate > 60
[2024-10-08 09:21] LABS: Anion Gap 11 (12-20); Blood Urea Nitrogen 20 mg/dL (9-16); Calcium 8.8 mg/dL (8.4-10.2); Carbon Dioxide 19 mmol/L (22-29); Chloride 114 mmol/L (96-108); Estimated Glomerular Filt Rate > 60; Glucose Random 101 mg/dL (60-115); Potassium 3.4 mmol/L (3.3-5.1); Sodium 141 mmol/L (135-145)
--- NOTE | 2024-10-08 09:24 | PM.PNCARD ---
Subjective Subjective Date of Service: 10/08/24 Interval history: Overall, not feeling good. Suspect this multifactorial related to some combination of cardiac issues as well as RSV infection. Review of Systems Review of Systems Yes all other systems are reviewed and are negative Constitutional: Reports as per HPI and Reports no additional constitutional complaints Eyes: Reports as per HPI and Denies no additional eye complaints Denies system reviewed and no additional complaints, except as documented and Reports as per HPI Cardiovascular: Reports as per HPI, Reports no additional cardiovascular complaints, Denies acrocyanosis, Denies cool extremities, Denies chest pain, Denies leg edema, Denies lightheadedness, Denies palpitations and Reports dyspnea Respiratory: Reports as per HPI, Denies no additional respiratory complaints and Reports dyspnea Gastrointestinal: Reports as per HPI and Denies no additional gastrointestinal complaints Musculoskeletal: Reports no additional musculoskeletal complaints and Reports as per HPI Skin/Breast: Reports system reviewed and no additional complaints, except as docu Reports system reviewed and no additional complaints, except as documented and Reports as per HPI Psychiatric: Reports no additional psychiatric complaints and Reports as per HPI Endocrine: Reports no additional endocrine complaints, Reports as per HPI and Denies palpitations Hematologic/Lymphatic: Reports no additional hematologic/lymphatic complaints and Reports as per HPI Allergic/Immunologic: Reports no additional allergic/immunologic complaints and Reports as per HPI Physical Exam Vital Signs: Last Vital Signs Temp 97.2 F 10/08/24 07:38 Pulse 103 H 10/08/24 07:38 Resp 18 10/08/24 07:38 BP 132/80 10/08/24 07:38 Pulse Ox 99 10/08/24 07:38 O2 Del Method Nasal Cannula 10/08/24 07:38 O2 Flow Rate 2 10/08/24 07:38 BMI result Body Mass Index 28.1 Const General: comfortable and no acute distress Orientation/consciousness: patient oriented x3 HEENT Other: Unremarkable Head: Yes normal to inspection Neck Neck: Yes normal visual inspection Chest Chest palpation & inspection: normal inspection of the chest Resp Other: Do not hear any significant crackles/rhonchi Auscultation: clear to auscultation bilaterally and wheezes Cardio Palpation: normal PMI Heart sounds: S1 normal heart sound present, S2 normal heart sound present, no gallops, no murmurs and no rubs GI Palpation (GI): Soft to palpation Back/Spine/Pelvis Other: unremarkable Skin General skin exam: no rashes or lesions noted Neuro General: patient oriented x3 Extrem Other: Gangrenous changes in the toes. General: Yes normal to inspection Psych Mental Status: mental status grossly normal Objective Labs and Meds 10/07/24 06:57 10/08/24 08:52 Lab results: Laboratory Results - last 24 hr 10/08/24 10/08/24 10/08/24 08:52 08:52 08:52 Sodium 141 Potassium 3.4 Chloride 114 H Carbon Dioxide 19 L Anion Gap 11 L BUN 20 H Creatinine 0.76 0.77 Estim Creat Clear Calc 83.0 81.9 Estimated GFR > 60 Random Glucose Calcium 10/08/24 08:52 Sodium Potassium Chloride Carbon Dioxide Anion Gap BUN Creatinine Estim Creat Clear Calc Estimated GFR > 60 Random Glucose 101 Calcium 8.8 Progress Note: A&P Assessment and plan (1) Atrial fibrillation with rapid ventricular response: Status: Acute Assessment and Plan: Cardioversion attempted; briefly converted to sinus and then went back into atrial fibrillation. Currently, rate is about 100/Min. Keep her on amiodarone/metoprolol. Adjust metoprolol dose as necessary. Continue anticoagulation. Likely re-attempt cardioversion in a few weeks' time. In the transesophageal echocardiogram, no evidence of left atrial appendage thrombus. If necessary, add digoxin but will need to monitor the levels. (2) Acute congestive heart failure: Status: Acute Assessment and Plan: In the echocardiogram, LVEF is 40-45%. 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 On intermittent diuretics. Most likely RSV he is making things worse. (3) Gangrene of toe of both feet: Status: Acute Assessment and Plan: Plan for angiogram per vascular. Time Spent With Patient Time: Total time managing care of this patient today ____ minutes. Progress Note: Quality Stroke Does the patient have a stroke diagnosis?: No Procedures Date of Service Date of Service: 10/08/24
[2024-10-08 09:32] LABS: Vancomycin Random 8.9 mcg/mL (15-20)
[2024-10-08 10:04] LABS: B Type Natriuretic Peptide 913 pg/mL (<100)
[2024-10-08] MEDS: vancomycin HCL 1,000 MG in 0.9 % Sodium Chloride 250 ML 270 MG IV (10:43)
--- NOTE | 2024-10-08 11:35 | P.PNIM_ITS ---
Subjective Subjective Date of Service: 10/08/24 Interval History: seen and evaluated this morning HR going up 100-120s feels better overall +ve for RSV No other events Review of Systems Review of Systems: Yes all other systems are reviewed and are negative Physical Exam 2 Vital Signs: Vital Signs: Last Vital Signs Temp 97.4 F 10/08/24 11:15 Pulse 95 10/08/24 11:15 Resp 17 10/08/24 11:15 BP 99/62 10/08/24 11:15 Pulse Ox 99 10/08/24 11:15 O2 Del Method Nasal Cannula 10/08/24 11:15 O2 Flow Rate 2 10/08/24 11:15 BMI result Body Mass Index 28.1 Const: Other: Constitutional : Awake, interactive, in distress and anxious Neck : Normal inspection, Supple Cardiovascular : irregular irregular , no JVP, trace lower extremity edema Respiratory : good bilateral air entry, no crackles, wheezes or rhonchi Gastrointestinal: soft, lax, Normal bowel sounds, Non tender Skin : Warm, Dry, right big toe gangrene , extensive rash on her neck, back and lower extremities Neurological : Alert & oriented x3, No focal deficit Objective Data Active Medications Acetaminophen (Acetaminophen 325 Mg Tablet) 650 mg PO Q6H PRN PRN Reason: Pain, Mild 1-3,fever,headache Last Admin: 10/08/24 08:12 Dose: 650 mg Documented By: BRIGIDA Al Hydroxide/Mg Hydroxide (Magnesium Hydrox/Alum Hydrox 30 Ml Oral.Susp) 30 ml PO QID PRN PRN Reason: GI upset Amiodarone HCl (Amiodarone Hcl 200 Mg Tablet) 400 mg PO BID [facility] Last Admin: 10/08/24 08:12 Dose: 400 mg Documented By: BRIGIDA Apixaban (Apixaban 5 Mg Tablet) 5 mg PO BID [facility] Last Admin: 10/08/24 08:12 Dose: 5 mg Documented By: BRIGIDA Aspirin (Aspirin Enteric Coated 81 Mg Tablet.) 81 mg PO DAILY [facility] Last Admin: 10/08/24 08:12 Dose: 81 mg Documented By: BRIGIDA Atorvastatin Calcium (Atorvastatin Calcium 10 Mg Tablet) 10 mg PO BEDTIME [facility] Last Admin: 10/07/24 20:37 Dose: 10 mg Documented By: AIMEE Benzocaine (Throat Lozenge, Medicated Lozenge) 1 lozenge MUCOUS MEM Q2H PRN PRN Reason: Sore Throat Last Admin: 10/02/24 17:09 Dose: 1 lozenge Documented By: MARION Brimonidine Tartrate (Brimonidine Tartrate 0.2% Oph 5 Ml Bottle) 1 drop EYE- BOTH BID [facility] Last Admin: 10/08/24 08:16 Dose: 1 drop Documented By: BRIGIDA Calcium Carbonate (Calcium Carbonate 750 Mg Tab.Chew) 750 mg PO Q4H PRN PRN Reason: Heartburn Clonazepam (Clonazepam 0.5 Mg Tablet) 0.5 mg PO DAILY PRN PRN Reason: severe anxiety or panic attack Last Admin: 10/08/24 00:49 Dose: 0.5 mg Documented By: AIMEE Clopidogrel Bisulfate (Clopidogrel Bisulfate 75 Mg Tablet) 75 mg PO DAILY [facility] Last Admin: 10/08/24 08:12 Dose: 75 mg Documented By: BRIGIDA Docusate Sodium (Docusate Sodium 100 Mg Capsule) 100 mg PO BID PRN PRN Reason: Constipation Last Admin: 10/05/24 08:36 Dose: 100 mg Documented By: BRIGIDA Empagliflozin (Empagliflozin 10 Mg Tablet) 10 mg PO DAILY [facility] Last Admin: 10/05/24 08:36 Dose: 10 mg Documented By: BRIGIDA Furosemide (Furosemide 40 Mg/4 Ml Vial) 40 mg IVPUSH DAILY [facility]; Protocol Last Admin: 10/05/24 08:35 Dose: 40 mg Documented By: BRIGIDA Guaifenesin (Guaifenesin La 600 Mg Tab.Er.12h) 1,200 mg PO BID PRN PRN Reason: Cough Last Admin: 10/08/24 08:12 Dose: 1,200 mg Documented By: BRIGIDA Hydroxyzine HCl (Hydroxyzine Hcl 50 Mg Tablet) 50 mg PO Q4H PRN PRN Reason: moderate to severe anxiety Last Admin: 10/07/24 04:24 Dose: 50 mg Documented By: SAL Cefepime HCl (Maxipime) 2 gm in 50 mls @ 100 mls/hr IV Q12H [facility] Last Infusion: 10/08/24 06:00 Dose: Infused Documented By: AIMEE Vancomycin HCl 1,000 mg/ (Sodium Chloride) 270 mls @ 270 mls/hr IV Q12H [facility] Last Admin: 10/08/24 10:43 Dose: 270 mls/hr Documented By: BRIGIDA Latanoprost (Latanoprost 0.005 % Ophth Kristie 2.5 Ml Drops) 1 drop EYE-BOTH BEDTIME [facility] Last Admin: 10/07/24 20:37 Dose: 1 drop Documented By: AIMEE Levothyroxine Sodium (Levothyroxine Sodium 50 Mcg Tablet) 50 mcg PO DAILY@0600 [facility] Last Admin: 10/08/24 05:29 Dose: 50 mcg Documented By: AIMEE Loperamide HCl (Loperamide Hcl 2 Mg Capsule) 2 mg PO DAILY PRN PRN Reason: for each loose stool Magnesium Hydroxide (Milk Of Magnesia 30 Ml Oral.Susp) 30 ml PO DAILY PRN PRN Reason: Constipation Melatonin (Melatonin 3 Mg Tablet) 9 mg PO BEDTIME PRN PRN Reason: Insomnia Last Admin: 10/08/24 00:50 Dose: 9 mg Documented By: AIMEE Metoprolol Succinate (Metoprolol Succinate Er 100 Mg Tab.Er.24h) 100 mg PO BID [facility]; Protocol Last Admin: 10/08/24 08:14 Dose: 100 mg Documented By: BRIGIDA Metoprolol Tartrate (Metoprolol Tartrate 5 Mg/5 Ml Vial) 5 mg IVPUSH Q6H PRN; Protocol PRN Reason: For Heart rate > 110 Last Admin: 10/03/24 06:40 Dose: 5 mg Documented By: AIMEE Morphine Sulfate (Morphine Sulfate 2 Mg/Ml Cartridge) 2 mg IVPUSH Q4H PRN; Protocol PRN Reason: Pain, Severe (Pain Scale 7-10) Last Admin: 10/08/24 05:30 Dose: 2 mg Documented By: AIMEE Naloxone HCl (Naloxone Hcl 0.4 Mg/Ml Vial) 0.04 mg IVPUSH Q5M PRN PRN Reason: Excessive sedation or RR < 8 Nicotine (Nicotine 21 Mg Patch.Td24) 21 mg TRANSDERMA DAILY PRN PRN Reason: nicotine withdrawal Nicotine Polacrilex (Nicotine Polacrilex 2 Mg Gum) 2 mg BUCCAL Q2H PRN PRN Reason: Nicotine Cravings Nystatin/Triamcinolone Acetonide (Nystatin/Triamcinolone Cream 15 Gm Tube) 1 appl TOPICAL BID [facility]; Protocol Last Admin: 10/08/24 08:16 Dose: 1 appl Documented By: BRIGIDA Ondansetron HCl (Ondansetron Hcl 4 Mg/2 Ml Vial) 4 mg IVPUSH Q8H PRN PRN Reason: Nausea and Vomiting Pharmacy Consult (Consult Rx Vancomycin Dosing) 1 each MISCELLANE DAILY PRN PRN Reason: Consult order Sodium Chloride (0.9 % Sodium Chloride Flush 3 Ml Syringe) [facility] Last Admin: 10/08/24 10:45 Dose: 3 ml Documented By: BRIGIDA Triamcinolone Acetonide (Triamcinolone Acet 0.5 % Cream 15 Gm Tube) 1 appl TOPICAL BID [facility]; Protocol Last Admin: 10/08/24 08:16 Dose: 1 appl Documented By: BRIGIDA Venlafaxine HCl (Venlafaxine Hcl Er 150 Mg Cap.Er.24h) 150 mg PO DAILY [facility] Last Admin: 10/08/24 08:12 Dose: 150 mg Documented By: BRIGIDA Zinc Acetate/Diphenhydramine (Diphenhydramine Hcl 2 % Cream 28 Gm Tube) 1 appl TOPICAL QID PRN; Protocol PRN Reason: Itching Last Admin: 10/05/24 00:22 Dose: 1 appl Documented By: AIMEE Labs 10/07/24 06:57 10/08/24 08:52 Labs: Laboratory Results - last 24 hr 10/08/24 10/08/24 10/08/24 08:52 08:52 08:52 Anion Gap 11 L Estim Creat Clear Calc 83.0 81.9 Estimated GFR > 60 > 60 Random Glucose 101 Calcium 8.8 B-Natriuretic Peptide 913 H Random Vancomycin 8.9 L Microbiology Microbiology Results: Microbiology 10/06/24 07:43 Blood Culture - Preliminary Blood - Venous No growth after 48 hours. 10/06/24 07:43 Blood Culture - Preliminary Blood - Venous No growth after 48 hours. Assessment and Plan (1) Acute kidney injury: Status: Acute (2) Acute respiratory failure with hypoxia: Status: Acute (3) Acute congestive heart failure: Status: Acute (4) RSV (respiratory syncytial virus pneumonia): Status: Acute (5) Gangrene of toe of both feet: Status: Acute Plan 69/F with pertinent history of hypothyroidism, history of endometrial cancer, mood disorder, tobacco use disorder, atrial fibrillation on Eliquis, had a pacemaker at [facility] on 09/12/24 after presenting with syncope and and HR in 20s and 30, and had a pacemaker inserted for sick sinus syndrome, patient was also noted at that time to have gangrenous toes--which she states has been ongoing since last summer, following pacemaker, she was sent to [facility] for Bipolar. She was sent to the ED on this occasion due to palpitations and shortness of breath and admitted for AFIB with RVR and Heart failure and noted to have a gangrene of the foot that has been ongoin AFib with RVR. Failed Cardioversion on 10/06, back to Afib dc Metoprolol 50 mg Q6 , start MEtoprolol XL 100 bid Continue Amiodarone 400mg bid 10/03 Continue Eliquis. Cardiology following. medical management for now PRN IV Metoprolol as needed Keep on Tele ALEJANDRO Cr improved to 0.8 restart Lasix as tolerated follow I\O Hypoxia 2/2 HFrEF, possible tachycardia mediated. repeat CXR hold IV Lasix continue jardiance follow BNP, trending down Mild acute hypokalemia replacement given follow BMP Viral sepsis 2/2 RSV infection and LLL pneumonia complicated with Hypotension not due to severe sepsis LA normal cdc empirical IV Abx of Cefepime and Vancomycin as final cultures negative, give Augmentin for 5 more days Wean O2 down as toelrated PAD with gangrene of toes looks stable vascular consult, for angiogram as outpatient in few weeks Continue ASA , DC Plavix as she is on Eliquis Physical deconditioning PT rec SNF placement extensive rash reported as previous drug eruption Start steroid and nystatin cream follow response HypOthyroidism On Synthroid HLD--statin Mood disorder/Bipolar Continue home mood stabilizers CARE consult before discharge History of Endometrial cancer CT angiogram at [facility] on 09/23 showed thickening of vaginal cuffing suggestive of metastic disease and will need to follow up with her oncologist Tobacco use disorder NRT while in the hospital DVT prophylaxis: Eliquis Full code The patient will need overnight stay for Afib w RvR control , Hypoxia on O2 supplement pending safe discharge planning and need of IV medications Quality Stroke Does the patient have a stroke diagnosis?: No VTE Prior VTE?: No VTE Risk Level:: Medical - moderate - high VTE Device Contraindication: Treatment Not Indicated VTE Drug Contraindication: N/A - Med Ordered
[2024-10-08] MEDS: Amoxicillin/Potassium Clav 875 MG TABLET PO ×2 (13:22→23:59)
[2024-10-08] MEDS: Omeprazole 20 MG CAPSULE.DR PO (13:22)
--- NOTE | 2024-10-08 14:37 | MHC.CM.PN ---
PT EXPECTED TO BE CLEARED TO DC TOMORROW, [facility] HAS CONFIRMED THEY WILL HAVE BEDS. PT TO DC TO [facility] TOMORROW VIA BLS
[2024-10-08] MEDS: Atorvastatin Calcium 10 MG TABLET PO (21:35)
[2024-10-08] MEDS: Latanoprost 0.005 % Ophth Sol 2.5 ML DROPS 1 DROP EYE-BOTH (21:36)
[2024-10-08] MEDS: hydrOXYzine HCL 50 MG TABLET PO (21:41)
[2024-10-08] MEDS: Throat Lozenge, Medicated LOZENGE 1 LOZENGE MUCOUS MEM (23:59)
[2024-10-09] VITALS (14 sets, daily range): BP systolic 101–177; BP diastolic 71–99; PULSE 68–122; RESP 14–28; TEMP 36–36.7; O2SAT 96–100
[2024-10-09] MEDS: hydrOXYzine HCL 50 MG TABLET PO ×2 (03:07→12:08)
[2024-10-09] MEDS: Metoprolol Tartrate 5 MG/5 ML VIAL IVPUSH (04:11)
[2024-10-09] MEDS: Calcium Carbonate 750 MG TAB.CHEW PO (04:24)
[2024-10-09] MEDS: ondansetron HCL 4 MG/2 ML VIAL IVPUSH (04:24)
[2024-10-09] MEDS: Levothyroxine Sodium 50 MCG TABLET PO (05:42)
[2024-10-09] MEDS: Omeprazole 20 MG CAPSULE.DR PO (05:42)
[2024-10-09 07:27] LABS: Basophils Absolute Auto 0.1 X10*3/uL (0.0-0.2); Basophils Percent Auto 0.5 % (0-2); Eosinophils Absolute Auto 0.2 X10*3/uL (0.0-0.4); Eosinophils Percent Auto 1.3 % (0-4); Hematocrit 37.9 % (37.0-47.0); Hemoglobin 12.4 g/dl (12.0-16.0); Imm Gran Abs Auto 0.12 X10*3/uL (0.00-0.03); Imm Gran Pct Auto 1.1 % (0.0-0.4); Lymphocytes Absolute Auto 1.6 X10*3/uL (1.2-4.9); MANUAL DIFF FLAG SCAN; Mean Corpuscular HGB Conc 32.7 g/dl (31.0-35.0); Mean Corpuscular Hemoglobin 28.1 pg (27.0-33.0); Mean Corpuscular Volume 85.9 fL (80.0-98.0); Monocytes Absolute Auto 0.7 X10*3/uL (0.1-1.2); Monocytes Percent Auto 6.3 % (2-11); Neutrophils Absolute Auto 8.6 x10*3/uL (2.0-8.3); Neutrophils Percent Auto 76.8 % (45-73); Platelet Count 292 X10*3/uL (160-400); Red Blood Count 4.41 X10*6/uL (4.20-5.50); Red Cell Distribution Width 15.8 % (11.0-16.0); SCAN SMEAR FLAG 1; White Blood Count 11.2 X10*3/uL (4.8-10.8)
[2024-10-09 07:46] LABS: Blood Urea Nitrogen 18 mg/dL (9-16); Creatinine Clr Calc Pharmacy 70.8; Estimated Glomerular Filt Rate > 60; Glucose Random 115 mg/dL (60-115)
[2024-10-09 07:59] LABS: SLIDE REVIEW VERIFIED
[2024-10-09 08:23] LABS: Anion Gap 14 (12-20); Carbon Dioxide 22 mmol/L (22-29); Chloride 110 mmol/L (96-108); Potassium 4.1 mmol/L (3.3-5.1); Sodium 142 mmol/L (135-145)
[2024-10-09 08:54] LABS: Vancomycin Random 8.3 mcg/mL (15-20)
[2024-10-09] MEDS: Aspirin Enteric Coated 81 MG TABLET.DR PO (09:15)
[2024-10-09] MEDS: Apixaban 5 MG TABLET PO ×2 (09:15→21:59)
[2024-10-09] MEDS: Venlafaxine HCl ER 150 MG CAP.ER.24H PO (09:15)
[2024-10-09] MEDS: Amiodarone HCL 200 MG TABLET 400 MG PO ×2 (09:16→22:00)
[2024-10-09] MEDS: Metoprolol Succinate ER 100 MG TAB.ER.24H PO ×2 (09:16→22:00)
[2024-10-09] MEDS: 0.9 % Sodium Chloride Flush 3 ML SYRINGE IVFLUSH ×3 (09:17→22:06)
--- NOTE | 2024-10-09 10:30 | MHC.CM.PN ---
Addendum entered by Charito Sheikh RN 10/09/24 15:18: [facility] OFFERING FOR TOMORROW 10/10, LEVEL 1 [facility] SUBMITTED ON [facility] WEBSITE. Addendum entered by Charito Sheikh RN 10/09/24 13:06: HARD COPIES OF UPDATED CLINICALS FAXED TO [phone] LIAISON REPORTING SHE CAN'T SEE ATTACHMENTS IN REFERRAL. Original Note: ADDITIONAL UPDATES SENT TO [facility] CM REQUESTED RN NOTE PER FACILITY REQUEST, CM WILL CONT TO FOLLOW DC NEEDS.
[2024-10-09] MEDS: oxyCODONE HCl Immed Release 5 MG TABLET PO ×2 (10:32→22:52)
[2024-10-09] MEDS: Triamcinolone Acet 0.5 % Cream 15 GM TUBE 1 APPL TOPICAL ×2 (10:33→22:13)
[2024-10-09] MEDS: Latanoprost 0.005 % Ophth Sol 2.5 ML DROPS 1 DROP EYE-BOTH ×2 (10:33→22:00)
[2024-10-09] MEDS: Digoxin 0.5 MG/2 ML AMPUL 0.25 MG IVPUSH ×3 (10:34→22:01)
[2024-10-09] MEDS: Brimonidine Tartrate 0.2% Oph 5 ML BOTTLE 1 DROP EYE-BOTH ×2 (10:34→22:00)
--- NOTE | 2024-10-09 10:45 | PC.NURSE ---
Very pleasant female who is able to make her needs know. she does get anxious at times and asks alot of questions about medications and her care. She is needy but not behavioral at this time. She does have a psyc diagnosis of mood disorder. Has chronic lower back pain
--- NOTE | 2024-10-09 11:54 | HO.PM.IMPN ---
Subjective Subjective Date of Service: 10/09/24 Interval History: seen and evaluated this morning HR going up 100-130s feels better overall +ve for RSV No other events Review of Systems Review of Systems: Yes all other systems are reviewed and are negative Physical Exam Vital Signs: Vital Signs: Last Vital Signs Temp 97.5 F 10/09/24 08:00 Pulse 92 10/09/24 10:44 Resp 19 10/09/24 08:00 BP 101/71 10/09/24 09:16 Pulse Ox 96 10/09/24 08:00 O2 Del Method Nasal Cannula 10/09/24 08:00 O2 Flow Rate 2 10/09/24 08:00 BMI result Body Mass Index 28.1 Const: Other: Constitutional : Awake, interactive, in distress and anxious Neck : Normal inspection, Supple Cardiovascular : irregular irregular , no JVP, trace lower extremity edema Respiratory : good bilateral air entry, no crackles, wheezes or rhonchi Gastrointestinal: soft, lax, Normal bowel sounds, Non tender Skin : Warm, Dry, right big toe gangrene , extensive rash on her neck, back and lower extremities Neurological : Alert & oriented x3, No focal deficit Objective Data Active Medications Acetaminophen (Acetaminophen 325 Mg Tablet) 650 mg PO Q6H PRN PRN Reason: Pain, Mild 1-3,fever,headache Last Admin: 10/08/24 08:12 Dose: 650 mg Documented By: BRIGIDA Al Hydroxide/Mg Hydroxide (Magnesium Hydrox/Alum Hydrox 30 Ml Oral.Susp) 30 ml PO QID PRN PRN Reason: GI upset Amiodarone HCl (Amiodarone Hcl 200 Mg Tablet) 400 mg PO BID [facility] Last Admin: 10/09/24 09:16 Dose: 400 mg Documented By: TEN Amoxicillin/Clavulanate Potassium (Amoxicillin/Potassium Clav 875 Mg Tablet) 875 mg PO Q12H [facility] Stop: 10/13/24 00:01 Last Admin: 10/08/24 23:59 Dose: 875 mg Documented By: ADONAY Apixaban (Apixaban 5 Mg Tablet) 5 mg PO BID [facility] Last Admin: 10/09/24 09:15 Dose: 5 mg Documented By: TEN Aspirin (Aspirin Enteric Coated 81 Mg Tablet.) 81 mg PO DAILY [facility] Last Admin: 10/09/24 09:15 Dose: 81 mg Documented By: TEN Atorvastatin Calcium (Atorvastatin Calcium 10 Mg Tablet) 10 mg PO BEDTIME [facility] Last Admin: 10/08/24 21:35 Dose: 10 mg Documented By: ADONAY Benzocaine (Throat Lozenge, Medicated Lozenge) 1 lozenge MUCOUS MEM Q2H PRN PRN Reason: Sore Throat Last Admin: 10/08/24 23:59 Dose: 1 lozenge Documented By: ADONAY Brimonidine Tartrate (Brimonidine Tartrate 0.2% Oph 5 Ml Bottle) 1 drop EYE-BOTH BID [facility] Last Admin: 10/09/24 10:34 Dose: 1 drop Documented By: TEN Calcium Carbonate (Calcium Carbonate 750 Mg Tab.Chew) 750 mg PO Q4H PRN PRN Reason: Heartburn Last Admin: 10/09/24 04:24 Dose: 750 mg Documented By: ADONAY Clonazepam (Clonazepam 0.5 Mg Tablet) 0.5 mg PO DAILY PRN PRN Reason: severe anxiety or panic attack Last Admin: 10/08/24 23:58 Dose: 0.5 mg Documented By: ADONAY Comments: severe anxiety Digoxin (Digoxin 0.5 Mg/2 Ml Ampul) 0.25 mg IVPUSH Q6H [facility]; Protocol Stop: 10/09/24 21:46 Last Admin: 10/09/24 10:34 Dose: 0.25 mg Documented By: TEN Digoxin (Digoxin 0.25 Mg Tablet) 0.25 mg PO DAILY [facility]; Protocol Docusate Sodium (Docusate Sodium 100 Mg Capsule) 100 mg PO BID PRN PRN Reason: Constipation Last Admin: 10/05/24 08:36 Dose: 100 mg Documented By: BRIGIDA Guaifenesin (Guaifenesin La 600 Mg Tab.Er.12h) 1,200 mg PO BID PRN PRN Reason: Cough Last Admin: 10/08/24 21:41 Dose: 1,200 mg Documented By: ADONAY Hydroxyzine HCl (Hydroxyzine Hcl 50 Mg Tablet) 50 mg PO Q4H PRN PRN Reason: moderate to severe anxiety Last Admin: 10/09/24 03:07 Dose: 50 mg Documented By: HO.LIZMAR Latanoprost (Latanoprost 0.005 % Ophth Kristie 2.5 Ml Drops) 1 drop EYE-BOTH BEDTIME [facility] Last Admin: 10/09/24 10:33 Dose: 1 drop Documented By: TEN Levothyroxine Sodium (Levothyroxine Sodium 50 Mcg Tablet) 50 mcg PO DAILY@0600 [facility] Last Admin: 10/09/24 05:42 Dose: 50 mcg Documented By: ADONAY Loperamide HCl (Loperamide Hcl 2 Mg Capsule) 2 mg PO DAILY PRN PRN Reason: for each loose stool Magnesium Hydroxide (Milk Of Magnesia 30 Ml Oral.Susp) 30 ml PO DAILY PRN PRN Reason: Constipation Melatonin (Melatonin 3 Mg Tablet) 9 mg PO BEDTIME PRN PRN Reason: Insomnia Last Admin: 10/08/24 23:58 Dose: 9 mg Documented By: ADONAY Comments: Insomnia Metoprolol Succinate (Metoprolol Succinate Er 100 Mg Tab.Er.24h) 100 mg PO BID [facility]; Protocol Last Admin: 10/09/24 09:16 Dose: 100 mg Documented By: TEN Metoprolol Tartrate (Metoprolol Tartrate 5 Mg/5 Ml Vial) 5 mg IVPUSH Q6H PRN; Protocol PRN Reason: For Heart rate > 110 Last Admin: 10/09/24 04:11 Dose: 5 mg Documented By: ADONAY Naloxone HCl (Naloxone Hcl 0.4 Mg/Ml Vial) 0.04 mg IVPUSH Q5M PRN PRN Reason: Excessive sedation or RR < 8 Nicotine (Nicotine 21 Mg Patch.Td24) 21 mg TRANSDERMA DAILY PRN PRN Reason: nicotine withdrawal Nicotine Polacrilex (Nicotine Polacrilex 2 Mg Gum) 2 mg BUCCAL Q2H PRN PRN Reason: Nicotine Cravings Nystatin/Triamcinolone Acetonide (Nystatin/Triamcinolone Cream 15 Gm Tube) 1 appl TOPICAL BID [facility]; Protocol Last Admin: 10/08/24 21:36 Dose: 1 appl Documented By: ADONAY Omeprazole (Omeprazole 20 Mg Capsule.) 20 mg PO DAILY@0630 [facility] Last Admin: 10/09/24 05:42 Dose: 20 mg Documented By: ADONAY Ondansetron HCl (Ondansetron Hcl 4 Mg/2 Ml Vial) 4 mg IVPUSH Q8H PRN PRN Reason: Nausea and Vomiting Last Admin: 10/09/24 04:24 Dose: 4 mg Documented By: ADONAY Comments: c/o nausea Oxycodone HCl (Oxycodone Hcl Immed Release 5 Mg Tablet) 5 mg PO Q6H PRN PRN Reason: Pain, Severe (Pain Scale 7-10) Last Admin: 10/09/24 10:32 Dose: 5 mg Documented By: TEN Sodium Chloride (0.9 % Sodium Chloride Flush 3 Ml Syringe) 3 ml IVFLUSH QSHIFT [facility] Last Admin: 10/09/24 09:17 Dose: 3 ml Documented By: TEN Triamcinolone Acetonide (Triamcinolone Acet 0.5 % Cream 15 Gm Tube) 1 appl TOPICAL BID [facility]; Protocol Last Admin: 10/09/24 10:33 Dose: 1 appl Documented By: TEN Venlafaxine HCl (Venlafaxine Hcl Er 150 Mg Cap.Er.24h) 150 mg PO DAILY [facility] Last Admin: 10/09/24 09:15 Dose: 150 mg Documented By: TEN Zinc Acetate/Diphenhydramine (Diphenhydramine Hcl 2 % Cream 28 Gm Tube) 1 appl TOPICAL QID PRN; Protocol PRN Reason: Itching Last Admin: 10/05/24 00:22 Dose: 1 appl Documented By: AIMEE Labs 10/09/24 07:01 10/09/24 07:01 Labs: Laboratory Results - last 24 hr 10/09/24 10/09/24 07:01 08:21 MCV 85.9 MCH 28.1 MCHC 32.7 RDW 15.8 Plt Count 292 D MPV 12.0 Immature Gran % (Auto) 1.1 H Neut % (Auto) 76.8 H Lymph % (Auto) 14.0 L Er[place] % (Auto) 6.3 Eos % (Auto) 1.3 Baso % (Auto) 0.5 Lymph # (Auto) 1.6 Er[place] # (Auto) 0.7 Eos # (Auto) 0.2 Baso # (Auto) 0.1 Abs Immat Gran (auto) 0.12 H Absolute Neuts (auto) 8.6 H Absolute Nucleated RBC 0.000 Nucleated RBC % (auto) 0.0 Smear Tech's Comments VERIFIED Anion Gap 14 Estim Creat Clear Calc 70.8 Estimated GFR > 60 Random Glucose 115 Calcium 9.0 Magnesium 2.0 Random Vancomycin 8.3 L Microbiology Microbiology Results: Microbiology 10/06/24 07:43 Blood Culture - Preliminary Blood - Venous No growth after 48 hours. 10/06/24 07:43 Blood Culture - Preliminary Blood - Venous No growth after 48 hours. Assessment and Plan (1) Acute kidney injury: Status: Acute (2) Acute respiratory failure with hypoxia: Status: Acute (3) RSV (respiratory syncytial virus pneumonia): Status: Acute (4) Acute congestive heart failure: Status: Acute (5) Atrial fibrillation with rapid ventricular response: Status: Acute Plan 69/F with pertinent history of hypothyroidism, history of endometrial cancer, mood disorder, tobacco use disorder, atrial fibrillation on Eliquis, had a pacemaker at [facility] on 09/12/24 after presenting with syncope and and HR in 20s and 30, and had a pacemaker inserted for sick sinus syndrome, patient was also noted at that time to have gangrenous toes--which she states has been ongoing since last summer, following pacemaker, she was sent to [facility] for Bipolar. She was sent to the ED on this occasion due to palpitations and shortness of breath and admitted for AFIB with RVR and Heart failure and noted to have a gangrene of the foot that has been ongoin AFib with RVR. Failed Cardioversion on 10/06, back to Afib dc Metoprolol 50 mg Q6 , start MEtoprolol XL 100 bid Continue Amiodarone 400mg bid 10/03 Load with Digoxin 0.25 IV Q6 and PO tomorrow follow Digoxin level Continue Eliquis. Cardiology following. medical management for now PRN IV Metoprolol as needed Keep on Tele ALEJANDRO, resolved Cr improved to 0.8 Lasix on hold, restart as tolerated follow I\O Hypoxia 2/2 HFrEF, possible tachycardia mediated. repeat CXR hold IV Lasix continue jardiance follow BNP, trending down Mild acute hypokalemia replacement given follow BMP Viral sepsis 2/2 RSV infection and LLL pneumonia complicated with Hypotension not due to severe sepsis LA normal cdc empirical IV Abx of Cefepime and Vancomycin as final cultures negative, give Augmentin for 5 more days Wean O2 down as toelrated PAD with gangrene of toes looks stable vascular consult, for angiogram as outpatient in few weeks Continue ASA , DC Plavix as she is on Eliquis Physical deconditioning PT rec SNF placement extensive rash reported as previous drug eruption Start steroid and nystatin cream follow response HypOthyroidism On Synthroid HLD--statin Mood disorder/Bipolar Continue home mood stabilizers CARE consult before discharge History of Endometrial cancer CT angiogram at [facility] on 09/23 showed thickening of vaginal cuffing suggestive of metastic disease and will need to follow up with her oncologist Tobacco use disorder NRT while in the hospital DVT prophylaxis: Eliquis Full code The patient will need overnight stay for Afib w RvR control , Hypoxia on O2 supplement pending safe discharge planning and need of IV medications and heart rate control Quality Stroke Does the patient have a stroke diagnosis?: No VTE Prior VTE?: No VTE Risk Level:: Medical - moderate - high VTE Device Contraindication: Treatment Not Indicated VTE Drug Contraindication: N/A - Med Ordered
[2024-10-09] MEDS: Nystatin/Triamcinolone Cream 15 GM TUBE 1 APPL TOPICAL ×2 (12:03→22:13)
[2024-10-09] MEDS: Amoxicillin/Potassium Clav 875 MG TABLET PO ×2 (12:04→22:54)
[2024-10-09] MEDS: Atorvastatin Calcium 10 MG TABLET PO (21:59)
[2024-10-09] MEDS: Docusate Sodium 100 MG CAPSULE PO (22:56)
--- NOTE | 2024-10-10 | ECG_ITS ---
Test Reason : digoxin toxicity Blood Pressure : */* mmHG Vent. Rate : 68 BPM Atrial Rate : * BPM P-R Int : * ms QRS Dur : 94 ms QT Int : 378 ms P-R-T Axes : * 18 163 degrees QTcB Int : 401 ms Atrial fibrillation with frequent ventricular-paced complexes ST & T wave abnormality, consider anterolateral ischemia Abnormal ECG When compared with ECG of 06-Oct-2024 11:27, Afib present Paced beats present Referred By: Olamide Mao Electronically Signed By: Dat Peter
[2024-10-10 01:51] VITALS: BP 126/81
[2024-10-10 03:32] VITALS: BP 117/71; PULSE 76; RESP 18; TEMP 36.4; O2SAT 98
[2024-10-10] MEDS: Omeprazole 20 MG CAPSULE.DR PO (05:18)
[2024-10-10] MEDS: Levothyroxine Sodium 50 MCG TABLET PO (05:18)
[2024-10-10 06:51] VITALS: BP 141/68; PULSE 65; RESP 20; TEMP 36.5; O2SAT 98
[2024-10-10 07:02] LABS: MANUAL DIFF FLAG NO
[2024-10-10 07:06] LABS: Basophils Absolute Auto 0.1 X10*3/uL (0.0-0.2); Basophils Percent Auto 0.8 % (0-2); Eosinophils Absolute Auto 0.1 X10*3/uL (0.0-0.4); Eosinophils Percent Auto 1.7 % (0-4); Hematocrit 36.5 % (37.0-47.0); Hemoglobin 11.6 g/dl (12.0-16.0); Imm Gran Abs Auto 0.15 X10*3/uL (0.00-0.03); Imm Gran Pct Auto 1.9 % (0.0-0.4); Lymphocytes Absolute Auto 1.1 X10*3/uL (1.2-4.9); Lymphocytes Percent Auto 13.7 % (20-40); Mean Corpuscular HGB Conc 31.8 g/dl (31.0-35.0); Mean Corpuscular Hemoglobin 27.9 pg (27.0-33.0); Mean Corpuscular Volume 87.7 fL (80.0-98.0); Mean Platelet Volume 11.8 fL (9.4-12.3); Monocytes Absolute Auto 0.8 X10*3/uL (0.1-1.2); Monocytes Percent Auto 10.2 % (2-11); NRBC Pct Auto 0.3 /100WBC (0.0-0.2); Neutrophils Absolute Auto 5.6 x10*3/uL (2.0-8.3); Neutrophils Percent Auto 71.7 % (45-73); Platelet Count 247 X10*3/uL (160-400); Red Blood Count 4.16 X10*6/uL (4.20-5.50); Red Cell Distribution Width 15.5 % (11.0-16.0); White Blood Count 7.9 X10*3/uL (4.8-10.8)
[2024-10-10 07:25] LABS: Anion Gap 11 (12-20); Blood Urea Nitrogen 16 mg/dL (9-16); Calcium 8.9 mg/dL (8.4-10.2); Carbon Dioxide 24 mmol/L (22-29); Chloride 110 mmol/L (96-108); Creatinine Clr Calc Pharmacy 75.9; Estimated Glomerular Filt Rate > 60; Glucose Random 89 mg/dL (60-115); Potassium 4.3 mmol/L (3.3-5.1); Sodium 141 mmol/L (135-145)
[2024-10-10 07:50] LABS: Digoxin 2.3 ng/mL (0.8-2.0)
[2024-10-10] MEDS: oxyCODONE HCl Immed Release 5 MG TABLET PO (08:54)
[2024-10-10 08:55] VITALS: BP 141/68; PULSE 65
[2024-10-10] MEDS: Aspirin Enteric Coated 81 MG TABLET.DR PO (08:55)
[2024-10-10] MEDS: Apixaban 5 MG TABLET PO (08:55)
[2024-10-10] MEDS: Amiodarone HCL 200 MG TABLET 400 MG PO (08:55)
[2024-10-10] MEDS: Metoprolol Succinate ER 100 MG TAB.ER.24H PO (08:55)
[2024-10-10] MEDS: Venlafaxine HCl ER 150 MG CAP.ER.24H PO (08:55)
[2024-10-10] MEDS: Brimonidine Tartrate 0.2% Oph 5 ML BOTTLE 1 DROP EYE-BOTH (08:56)
[2024-10-10] MEDS: Triamcinolone Acet 0.5 % Cream 15 GM TUBE 1 APPL TOPICAL (08:58)
[2024-10-10] MEDS: 0.9 % Sodium Chloride Flush 3 ML SYRINGE IVFLUSH (08:59)
--- NOTE | 2024-10-10 09:14 | MHC.CM.PN ---
IMM DELIVERED TO BEDSIDE 10/09/24, PT AGREEABLE TO DC TO [facility] FOR [facility] IT WAS PREFERRED [facility] FOR TRANSPORT AT 12:30PM.
[2024-10-10 10:45] VITALS: BP 133/68; PULSE 70; RESP 18; TEMP 36; O2SAT 98
[2024-10-10] MEDS: Amoxicillin/Potassium Clav 875 MG TABLET PO (12:42)
--- NOTE | 2024-10-10 13:26 | PC.NURSE ---
This RN did attempt to call [facility] for a report, I was connected with no return phone call
--- NOTE | 2024-10-10 13:29 | PM.DS ---
DS: Providers Provider Date of Service: 10/10/24 Date of admission: 09/30/24 04:17 Date of discharge: 10/10/24 Primary care physician: VARUN Shaver Consults: 09/30/24 04:17 Consult to Cardiology Routine Consulting Provider: [facility] Reason for consultation: afib with rvr, chf Has provider been notified: Yes 10/01/24 03:04 Consult for Sitter Routine Reason for consultation: Disorganized mood 10/01/24 11:13 Consult to Wound Care Routine Reason for consultation: eschar to right and left great toe Has provider been notified: Yes 10/01/24 11:27 Consult to Vascular Surgery Routine Consulting Provider: [facility] Reason for consultation: Gangrene of Teos 10/04/24 12:00 Inpt CARE Team Crisis Consult Routine Comment: Reason for consultation: SI, medically clear. DS: Diagnosis Discharge Diagnosis (1) Acute kidney injury: Status: Acute (2) Acute respiratory failure with hypoxia: Status: Acute (3) RSV (respiratory syncytial virus pneumonia): Status: Acute (4) Acute congestive heart failure: Status: Acute (5) Atrial fibrillation with rapid ventricular response: Status: Acute (6) Elevated digoxin level: Status: Acute (7) Gangrene of toe of both feet: Status: Acute DS: Summary Hospital Course Hospital Course: The patient had prolonged hospital stay. for full details please return to EMR. Admission note HPI This is a 69-year-old female with pertinent history of atrial fibrillation on Eliquis, hypothyroidism, mood disorder, tobacco use disorder who presents to the emergency department for evaluation of palpitations and shortness of breath. Patient states her symptoms started on the day of presentation. She had sudden onset of palpitations while she was walking. The shortness of breath is worse with exertion and when lying flat. No history of heart failure in the past and patient is not on diuretics. No fever, chills, cough, abdominal pain, changes in urinary or bowel habits. In the emergency department, patient was found to be in AFib with RVR and initiated on IV diltiazem drip. Also BNP found to be elevated and patient was given IV Lasix Hospital course The patient was treated for the following: # Atrial fibrillation with rapid ventricular response Started on CArdizem before switching to Metoprolol and Amiodarone as her Echo showed decreased EF 40-45%. Failed Cardioversion on 10/06 as she converted to sinus for short period of time before going back to Afib with RvR. controlled better with Metoprolol 50 mg Q6 which was later switched to MEtoprolol XL 100 bid and loading Amiodarone 400mg bid 10/03. Her heart rate continued to run 100-130s so she was Loaded with Digoxin 0.25 IV Q6 for 3 doses with elevated Digoxin level upon checking the next morning. no signs of toxicity on Telemetry or clinical. Discussed with Power Plant Mechanic who recommended to restart her home dose the next day. A repeat Digoxin level showed trending down to normal therapeutic range of 1.9. She was kept on Eliquis as blood thinner. To follow with her land title examiner as outpatient. # ACute kidney injury with mild hypokalemia upon admission that improved back to baseline with holding nephrotoxins and improve heart rate. # Acute Hypoxia secondary to HFrEF as Echo showed decrease EF to 40-45%. Treated with IV lasix with good response. still requiring 2-3L of O2. will continue to wean down as tolerated in SNF. # Viral sepsis secondary to RSV infection and LLL pneumonia complicated with Hypotension not due to severe sepsis The patient was placed on empirical IV Abx of Cefepime and Vancomycin. her final cultures negative, to discharge on Augmentin to finish 1 week of antibiotics. Tested positive for RSV virus infection with supportive therapy. # PAD with gangrene of toes Evaluated by vascular surgery team who was hoping to do Angiogram but could not materialize as the patient was in AFib w RVR and developed Pneumonia and RSV infection. Decided to go for angiogram as outpatient in few weeks. For now will continue ASA, Plavix and Eliquis. Placed on Omeprazole for stomach protection. to discuss the need for DAP with Vascular surgery after the Angiogram . # Physical deconditioning. PT recommended SNF placement # extensive rash reported as previous drug eruption on her back, neck, face. Started steroid cream with good response Discharge plan Continue Amiodarone 400 mg two times a day for 5 more days Then Amiodarone 200 mg daily Switch to Metoprolol XL 100 mg twice a day. Discontinue Metoprolol 200 mg. Continue Digoxin 0.125 mcg daily Lasix 20 mg daily for now Follow with your land title examiner as outpatient To follow with Dr Carolyne as outpatient in 2 weeks for planning surgery on gangrene The patient will likely need less than 30 days of SNF stay. Time Attestation Discharge Coordination Time (in mins): 42 Quality: Safe Use of Opioids Does Pt have an Active Cancer Diagnosis on the Problem List?: No Quality: Stroke Does the patient have a stroke diagnosis?: No Physical Exam Vital Signs: Vital Signs: Last Vital Signs Temp 96.8 F 10/10/24 10:45 Pulse 70 10/10/24 10:45 Resp 18 10/10/24 10:45 BP 133/68 10/10/24 10:45 Pulse Ox 98 10/10/24 10:45 O2 Del Method Nasal Cannula 10/10/24 10:45 O2 Flow Rate 3 10/10/24 10:45 BMI result Body Mass Index 28.1 Const: Other: Constitutional : Awake, interactive, in distress and anxious Neck : Normal inspection, Supple Cardiovascular : irregular irregular , no JVP, trace lower extremity edema Respiratory : good bilateral air entry, no crackles, wheezes or rhonchi Gastrointestinal: soft, lax, Normal bowel sounds, Non tender Skin : Warm, Dry, right big toe gangrene , improving rash on her neck, back and lower extremities Neurological : Alert & oriented x3, No focal deficit DS: Data Data Completed and Pending Labs on day of discharge: Laboratory Results - last 24 hr 10/10/24 06:00 WBC 7.9 RBC 4.16 L Hgb 11.6 L Hct 36.5 L MCV 87.7 MCH 27.9 MCHC 31.8 RDW 15.5 Plt Count 247 MPV 11.8 Immature Gran % (Auto) 1.9 H Neut % (Auto) 71.7 Lymph % (Auto) 13.7 L [place] % (Auto) 10.2 Eos % (Auto) 1.7 Baso % (Auto) 0.8 Lymph # (Auto) 1.1 L [place] # (Auto) 0.8 Eos # (Auto) 0.1 Baso # (Auto) 0.1 Abs Immat Gran (auto) 0.15 H Absolute Neuts (auto) 5.6 Absolute Nucleated RBC 0.020 H Nucleated RBC % (auto) 0.3 H Sodium 141 Potassium 4.3 Chloride 110 H Carbon Dioxide 24 Anion Gap 11 L BUN 16 Creatinine 0.83 Estim Creat Clear Calc 75.9 Estimated GFR > 60 Random Glucose 89 Calcium 8.9 Magnesium 2.0 Digoxin 2.3 H* Preliminary micro results at discharge 10/06/24 07:43 Blood Culture - Preliminary Blood - Venous No growth after 48 hours. 10/06/24 07:43 Blood Culture - Preliminary Blood - Venous No growth after 48 hours. Imaging Chest x-ray: Radiologist's impression: ITS Impressions Chest X-Ray 10/05/24 15:20 IMPRESSION: 1. Right chest port has retracted mildly into the right IJ. Tip is now in the mid SVC. 2. Dual-lead pacer in good position. 3. Borderline cardiac enlargement. 4. Hyperaerated lung parenchyma. Linear opacity left base, likely atelectasis. Cannot definitively exclude pneumonia given the appearance. Electronically signed by: Jose Martin Ramirez MD 10/05/2024 03:59 PM [facility] Discharge Plan Discharge Anticipated Discharge Date/Time: 10/10/24 13:19 Patient Disposition: er [facility] Discharge Diagnosis: Acute heart failure exacerbation Atrial fibrillation with rapid ventricular response RSV infection Referrals: [facility] [place] [Other] - 1 Day (SHORT TERM REHAB) Renee Ornelas PA [Primary Care Provider] - 1 Week Discharge Medications: New triamcinolone acetonide 0.5 % Cream 1 appl topical BID Qty: 15 0RF Protocol: Apply to: Apply to: Neck, back, cheeks Rx Instructions: Back and face. thighs. amiodarone 200 mg Tablet 400 mg PO BID Qty: 20 0RF metoprolol succinate 100 mg Tablet Extended Release 24 Hr 100 mg PO BID Qty: 60 0RF Protocol: Hold for SBP/HR < HOLD for SBP < : 90 HOLD for HR < : 60 omeprazole 20 mg Capsule,Delayed Release(Dr/Ec) 20 mg PO DAILY@0630 Qty: 90 0RF amoxicillin-pot clavulanate 875-125 mg Tablet 1 tab PO Q12H Qty: 7 0RF amiodarone 200 mg tablet 200 mg PO DAILY Qty: 90 0RF Rx Instructions: start after finishing the 400 mg twice a day dose. furosemide 20 mg tablet 20 mg PO DAILY Qty: 90 0RF Continued latanoprost 0.005 % drops 1 drp ophthalmic (eye) BEDTIME Rx Instructions: both eyes acetaminophen 325 mg Tablet 650 mg PO Q4H PRN (Reason: pain or fever) nicotine (polacrilex) 2 mg Gum 2 mg BUCCAL Q2H MDD 24 pieces PRN (Reason: nicotine withdrawal) clonazepam 0.5 mg Tablet 0.5 mg PO BID clonazepam 0.5 mg Tablet 0.5 mg PO DAILY PRN (Reason: severe anxiety or panic attack) loperamide 2 mg Tablet 2 mg PO DAILY MDD 16 mg PRN (Reason: for each loose stool) venlafaxine 150 mg Capsule,Extended Release 24hr 150 mg PO DAILY hydroxyzine pamoate 50 mg Capsule 50 mg PO Q4H PRN (Reason: moderate to severe anxiety) melatonin 3 mg Tablet 9 mg PO BEDTIME PRN (Reason: Insomnia) clopidogrel 75 mg tablet 75 mg PO DAILY levothyroxine 50 mcg tablet 50 mcg PO DAILY@0600 brimonidine 0.2 % drops 1 drp ophthalmic (eye) BID Rx Instructions: both eyes ibuprofen 400 mg Tablet 400 mg PO Q8H PRN (Reason: bodyache, toothache, headache) nicotine 21 mg/24 hr Patch 24 Hour 1 patch TRANSDERMAL DAILY PRN (Reason: nicotine withdrawal) Rx Instructions: remove at bedtime. docusate sodium 100 mg capsule 100 mg PO BID PRN (Reason: Constipation) calcium carbonate 500 mg calcium (1,250 mg) Tablet,Chewable 500 mg PO Q4H PRN (Reason: Heartburn) digoxin 125 mcg (0.125 mg) tablet 125 mcg PO DAILY Protocol: Hold for HR <: HOLD for HR < : 60 alum-mag hydroxide-simeth 200-200-20 mg/5 mL Suspension 30 ml PO QID PRN (Reason: GI upset) Rx Instructions: administer between meals and at bedtime ondansetron 4 mg Tablet,Disintegrating 4 mg PO Q6H PRN (Reason: Nausea And Vomiting) benzocaine-menthol 15-3.6 mg Lozenge 1 luiz MUCOUS MEMBRANE Q2H PRN (Reason: Sore Throat) Eliquis 5 mg tablet 5 mg PO BID guaifenesin 600 mg Tablet Extended Release 12hr 1,200 mg PO BID MDD 2400 mg PRN (Reason: Cough) aspirin 81 mg Tablet,Delayed Release (Dr/Ec) 81 mg PO DAILY simvastatin 20 mg Tablet 20 mg PO BEDTIME Lenvima 10 mg/day (10 mg x 1) capsule 10 mg PO DAILY Discontinued metoprolol tartrate 50 mg Tablet 200 mg PO BID Protocol: Hold for SBP/HR < HOLD for SBP < : 90 HOLD for HR < : 60 Rx Instructions: Hold for BP <90/60 and HR <60 Discharge Orders: Discharge Order (Routine); Ordered 10/10/24 Ordered By: Olamide Mao Diet: Low salt diet Activity on Discharge: As tolerated Stand Alone Forms: Patient Portal Discharge page Print Language: Kosovan Activity Restrictions/Additional Instructions: Continue your medications and follow with your land title examiner Care Plan Goals: Continue Amiodarone 400 mg two times a day for 5 more days Then Amiodarone 200 mg daily Switch to Metoprolol XL 100 mg twice a day. Discontinue Metoprolol 200 mg. Continue Digoxin 0.125 mcg daily Lasix 20 mg daily for now Follow with your land title examiner as outpatient To follow with Dr Barfield as outpatient in 2 weeks for planning surgery on gangrene Health Concerns: Atrial fibrillation with rapid response HEart failure with exacerbation Plan of Treatment: Metoprolol XL Amiodarone LAsix Follow up with cardiology and Vascular surgery Assessment: as above
[2024-10-10 13:45] LABS: Digoxin 1.9 ng/mL (0.8-2.0)
[2024-10-10 15:17] VITALS: BP 119/62; PULSE 119; RESP 20; TEMP 36.4; O2SAT 94
== END 2024-10-10 16:05 | disposition skilled nursing facility (03) | DRG 308 ==
LOC: HO.ED 03:39 → HO.EDOVER 05:11 → HO.IMC 10-01 02:41 → HO.EDOVER 10-01 03:16 → HO.IMC 10-01 07:35
PROVIDERS: Internal Medicine; Physician Assistant Surgical; Student in an Organized Health Care Education/Training Program; Admitting Provider Student in an Organized Health Care Education/Training Program; Emergency Provider Internal Medicine; PCP Physician Assistant; Visit Provider Student in an Organized Health Care Education/Training Program
PROC: 5A2204Z Restoration of Cardiac Rhythm, Single (ICD-10-PCS; CPT 93312; principal; 2024-10-06 10:00)
PROC: 5A2204Z Restoration of Cardiac Rhythm, Single (ICD-10-PCS; 2024-10-06 10:00)
DX: I48.19 Other persistent atrial fibrillation (principal); A41.89 Other specified sepsis; I50.21 Acute systolic (congestive) heart failure; J18.9 Pneumonia, unspecified organism; C79.82 Secondary malignant neoplasm of genital organs; N17.9 Acute kidney failure, unspecified; E03.9 Hypothyroidism, unspecified; I42.8 Other cardiomyopathies; F17.200 Nicotine dependence, unspecified, uncomplicated; Z71.6 Tobacco abuse counseling; I73.9 Peripheral vascular disease, unspecified; E87.6 Hypokalemia; R09.02 Hypoxemia; I49.5 Sick sinus syndrome; Z95.0 Presence of cardiac pacemaker; L27.0 Generalized skin eruption due to drugs and medicaments taken internally; R53.81 Other malaise; B97.4 Respiratory syncytial virus as the cause of diseases classified elsewhere; F31.9 Bipolar disorder, unspecified; I95.9 Hypotension, unspecified; Z20.822 Contact with and (suspected) exposure to COVID-19; Z85.43 Personal history of malignant neoplasm of ovary; Z79.02 Long term (current) use of antithrombotics/antiplatelets; Z79.890 Hormone replacement therapy; Z79.899 Other long term (current) drug therapy
CPT/HCPCS: 0241U; 36415; 36600; 71045; 80048; 80053; 80162; 80202; 82565; 82803; 83605; 83735; 83880; 84443; 84484; 84520; 85025; 85027; 86850; 86900; 86901; 87040; 92960; 93005; 93306; 97116; 97162; 99285; J0692; J1160; J1940; J2003; J2270; J2405; J2704; J3010; J3370; J3371; J3475; J7120; P9047; Q9957; S9485

== ENCOUNTER → 2024-09-30 01:35 | Outpatient (BNV) | payer MEDICARE, SELFPAY | PROVIDERS: Emergency Provider Internal Medicine; PCP Physician Assistant; Visit Provider Radiology Diagnostic Radiology | DX: R06.00 Dyspnea, unspecified (principal) | CPT/HCPCS: 71045 ==

== ENCOUNTER → 2024-09-30 02:11 | Outpatient (BNV) | payer MEDICARE, SELFPAY | PROVIDERS: Emergency Provider Internal Medicine; PCP Physician Assistant; Visit Provider Student in an Organized Health Care Education/Training Program | DX: N17.9 Acute kidney failure, unspecified (principal); J96.01 Acute respiratory failure with hypoxia; J12.1 Respiratory syncytial virus pneumonia; I50.9 Heart failure, unspecified; I48.91 Unspecified atrial fibrillation | CPT/HCPCS: 99223; 99232; 99233; 99239; 99499 ==

== ENCOUNTER 2024-09-30 04:17 | Outpatient (BNV) | payer MEDICARE, SELFPAY | END 2024-10-06 11:16 | PROVIDERS: Admitting Provider Student in an Organized Health Care Education/Training Program; Emergency Provider Internal Medicine; PCP Physician Assistant; Visit Provider Internal Medicine | DX: I48.91 Unspecified atrial fibrillation (principal) | CPT/HCPCS: 93010; 93312; 93325 ==

== ENCOUNTER 2024-09-30 04:17 | Outpatient (BNV) | payer MEDICARE, SELFPAY | END 2024-10-06 04:25 | PROVIDERS: Admitting Provider Student in an Organized Health Care Education/Training Program; Emergency Provider Internal Medicine; PCP Physician Assistant; Visit Provider Radiology Diagnostic Radiology | DX: I50.9 Heart failure, unspecified (principal) | CPT/HCPCS: 71045 ==

== ENCOUNTER 2024-09-30 04:17 | Outpatient (BNV) | payer MEDICARE, SELFPAY | END 2024-10-10 11:22 | PROVIDERS: Admitting Provider Student in an Organized Health Care Education/Training Program; Emergency Provider Internal Medicine; PCP Physician Assistant; Visit Provider Internal Medicine Cardiovascular Disease | DX: I48.91 Unspecified atrial fibrillation (principal) | CPT/HCPCS: 93010 ==

== ENCOUNTER 2024-09-30 04:17 | Outpatient (BNV) | payer MEDICARE, SELFPAY | END 2024-10-05 15:20 | PROVIDERS: Admitting Provider Student in an Organized Health Care Education/Training Program; Emergency Provider Internal Medicine; PCP Physician Assistant; Visit Provider Radiology Diagnostic Radiology | DX: R06.02 Shortness of breath (principal) | CPT/HCPCS: 71045 ==

== ENCOUNTER 2024-09-30 04:17 | Outpatient (BNV) | payer MEDICARE, SELFPAY | END 2024-10-01 07:00 | PROVIDERS: Admitting Provider Student in an Organized Health Care Education/Training Program; Emergency Provider Internal Medicine; PCP Physician Assistant; Visit Provider Internal Medicine | DX: I48.91 Unspecified atrial fibrillation (principal) | CPT/HCPCS: 93306 ==

== ENCOUNTER → 2024-09-30 04:17 | Outpatient (BNV) | payer MEDICARE, SELFPAY | PROVIDERS: Admitting Provider Student in an Organized Health Care Education/Training Program; Emergency Provider Internal Medicine; PCP Physician Assistant; Visit Provider Internal Medicine Cardiovascular Disease | DX: I48.91 Unspecified atrial fibrillation (principal); I50.9 Heart failure, unspecified; I96 Gangrene, not elsewhere classified | CPT/HCPCS: 99233 ==

== ENCOUNTER → 2024-09-30 04:17 | Outpatient (BNV) | payer MEDICARE, SELFPAY | PROVIDERS: Admitting Provider Student in an Organized Health Care Education/Training Program; Emergency Provider Internal Medicine; PCP Physician Assistant; Visit Provider Physician Assistant Surgical | DX: I96 Gangrene, not elsewhere classified (principal) | CPT/HCPCS: 99222; 99232 ==

== ENCOUNTER 2024-10-23 12:50 | Outpatient (AMB) | payer MEDICARE, SELFPAY ==
--- NOTE | 2024-10-23 13:20 | MHC.OFFVIS ---
Intake Visit Reasons: Hosp follow up gangrene/PVD Intake Note: hospital follow up bilateral foot wounds, pt at [place] [facility] [place] Accompanied by: KAREL Allergies No Known Allergies Allergy (Verified 10/23/24 13:23) [facility] Hosp follow up gangrene/PVD: Details: The patient is a 69-year-old female presenting with a follow-up for peripheral vascular disease and right great toe gangrene. Initially evaluated in the hospital for these conditions, an angiogram was planned to assess her vascular status, but was deferred due to unexpected complications including atrial fibrillation with rapid ventricular response (AFib with RVR), pneumonia, and respiratory syncytial virus (RSV) infections. She recalls experiencing falls and a subsequent collapse attributed to cardiac issues at the time of her initial hospitalization. Previous consultations with a molded parts inspector at [facility] addressed her cardiac needs until the most recent events. Her current management focuses on monitoring and stabilizing her cardiac status, which is crucial prior to considering any form of surgical intervention for her right great toe gangrene. Ensuring adequate perfusion of her lower extremities is a priority to support potential healing processes post-amputation, which remains a likely course of action should her vascular and cardiac profile allow. She now presents for vascular follow-up [facility] Medical History Cardiac pacemaker in situ Decompensated heart failure Congestive heart failure Mood disorder Atrial fibrillation Hypothyroidism Social History Household Members: None Housing: Condominium Do you presently have visiting nurse or other home services: No Comment: Sitter Patient Tobacco Use Status: Never used Tobacco service: No Review of Systems Const All systems reviewed & are unremarkable except as noted in HPI and below Reports no additional complaints ENT Reports Normal hearing present Card Denies chest pain, Denies chest pain at rest, Denies chest pain with activity and Denies pedal edema Resp Denies cough GI Denies abdominal pain Musc Denies abnormal gait, Denies muscle cramps and Denies radiating pain into limb Skin/Breast Denies skin ulcer and Denies wounds Neuro Reports Normal hearing present and Denies abnormal gait Psych Reports no additional complaints Physical Exam Const General: cooperative, healthy appearing and comfortable Orientation/consciousness: oriented to person, oriented to place and oriented to time HEENT Head: Yes normal to inspection Neck Neck: Yes normal visual inspection Carotids: no bruits Chest Chest palpation & inspection: normal inspection of the chest Resp Effort & Inspection: normal respiratory effort and able to speak in complete sentences Auscultation: clear to auscultation bilaterally, no crackles, no rales, no rhonchi and no wheezes Cardio Other: Bilateral DP signals Rate: regular rate Rhythm: regular rhythm Heart sounds: S1 normal heart sound present and S2 normal heart sound present Bruits: no carotid bruits GI Inspection: Yes normal to inspection Skin Other: Right great toe dry gangrene with no evidence of erythema or collection. Wounds: no wounds Hair: normal Neuro General: oriented to person, oriented to place and oriented to time Cranial nerves: Yes CN's II-XII intact bilaterally and Yes Normal hearing present Cognition (Neuro): normal cognition Motor exam (neuro): 5/5 motor strength present throughout Extrem Other: venous exam: No significant superficial varicosities or spider telangiectasias, minimal edema General: No clubbing, No cyanosis and No edema Psych Appearance: grossly normal Mental Status: mental status grossly normal Speech and movement: Normal speech and movement present Assessment & Plan Assessment & Plan (1) PAD (peripheral artery disease): Code(s): I73.9 - Peripheral vascular disease, unspecified Category: Medical Plan: The primary plan is to stabilize the patient's cardiac status to allow safe progression with her vascular needs. The patient will need to be seen by her molded parts inspector to address any underlying cardiac issues, such as atrial fibrillation, which are a priority before any surgical intervention can be attempted. Upon cardiac stabilization, amputation of the right great toe will be considered if adequate blood flow can be ensured. Follow-up to monitor the patient's peripheral condition is arranged for three months. Patient was informed and verbally consented to the use of an ambient scribe for clinic note documentation during this visit. Patient Instructions: - See a molded parts inspector to assess and manage cardiac health. - Understand that stabilization of the heart condition is needed before any toe surgery. - Plan for follow-up in three months to evaluate the condition of the lower limb. - Report any new or worsening symptoms immediately to healthcare providers. Coding Level of Care Code Est Pt Level 4 (30552) Complex EM visit Add On G2211 Diagnoses PAD (peripheral artery disease) I73.9
--- OUTSIDE RECORDS SUMMARY | 2024-10-23 15:23 | XMS_ITS | Clinical Summary ---
Author Organization [facility], Address [address] [place] [address] Phone Care Team Providers Care Competitive Shopper Name Role Phone Katrina Montalvo DO Primary Care Provider [phone] Allergies No known active allergies Medications Polyvinyl Alcohol (LUBRICANT DROPS OP) Administer 1 drop into affected eye(s) in the morning and 1 drop at noon and 1 drop in the evening and 1 drop before bedtime. ocular . Active atorvastatin (LIPITOR) 10 MG tablet 1 Active Multiple Vitamin (MULTIVITAMIN ADULT PO) Take 1 tablet by mouth daily Active venlafaxine (EFFEXOR) 100 MG tablet Take 300 mg by mouth daily Active latanoprost (XALATAN) 0.005 % ophthalmic solution INSTILL 1 DROP INTO EACH EYE AT BEDTIME 3 Active Dorzolamide HCl-Timolol Mal PF 2-0.5 % solution Administer 1 drop into both eyes in the morning and 1 drop in the evening. 3 Active levothyroxine (SYNTHROID, LEVOTHROID) 50 MCG tablet 50 mcg DAILY (route: oral) 3 Active Lenvatinib, 14 MG Daily Dose, 10 & 4 MG capsule therapy 14 mg DIRECTED (route: oral) 3 Active brimonidine (ALPHAGAN) 0.2 % ophthalmic solution Per instructions TWICE DAILY (route: ophthalmic (eye)) 3 Active loperamide (IMODIUM A-D) 2 MG tablet Take 2 mg by mouth 4 (four) times a day if needed for diarrhea Active simethicone (MYLICON) 80 MG chewable tablet Chew 80 mg every 6 (six) hours if needed for flatulence Active Active Problems Problem Noted Date Diagnosed Date Suicidal ideation 09/07/2023 Pancreatitis 09/07/2023 Bipolar disorder 04/02/2023 Seizure 03/23/2023 Overview (09/07/2023): Last Assessment & Plan: s/p tonic/clonic seizures. Was transitioning between lorazepam and chlordiazepoxide and so likely suffered withdrawal. Was initially restarted on lorazepam, however her primary was switching her to Librium for ease of tapering off. MRI showed no metastatic lesions or acute abnormalities. Bipolar affective disorder, current episode henry c 05/21/2022 Overview (09/07/2023): Last Assessment & Plan: At times the patient has been vocal and demanding with staff, Dr. Ely spoke with Dr. Akers yesterday from psychiatry and this was felt to be the patient's baseline, they were not concerned that she would need an inpatient psychiatry consultation and that this may make her more agitated. I also spoke with psychiatry clinician today who confirmed the same, given that she is currently redirectable, calm when discussing medical issues, understands her plan of care, is not intrusive or going into other patient's rooms, she has been sleeping and eating, they did not feel that an inpatient psychiatry consultation would be needed. She is not expressing any thoughts of harming herself or others. I have encouraged her to follow-up with her outpatient staff and to continue medications as prescribed When I initially went to examine her today, she was anxious appearing but was able to sit and speak with me about the plan of care, she wanted to make sure that her CAT scans had been ordered and was quite redirectable. Vaginal mass 06/24/2021 Alcohol use disorder, mild 06/24/2021 Overview (06/24/2021): prior Endometrial carcinoma 06/24/2021 History of malignant neoplasm of endometrium 03/2021 Other acquired deformity of right foot 0 Social History Tobacco Use Types Packs/Day Years Used Date Smoking Tobacco: Former Cigarettes Q uit: 2008 Smokeless Tobacco: Never Tobacco Cessation:Counseling Given: Not Answered Alcohol Use Standard Drinks/Week Comments Not Currently 0 (1 standard drink = 0.6 oz pur e alcohol) Comments Unknown Sex and Gender Information Value Date Recorded Sex Assigned at Not on file Legal Sex Female 9:04 AM EST Gender Identity Not on file Sexual Orientation Not on file Last Filed Vital Signs Vital Sign Reading Time Taken Comments Blood Pressure 145/76 09/07/2023 10:51 AM EST Pulse 55 09/07/2023 10:51 AM EST Temperature 35.9 ??C (96.6 ??F) 09/07/2023 10:[address] Respiratory Rate 16 09/07/2023 10:51 AM EST Oxygen Saturation 97% 09/07/2023 10:51 AM EST Inhaled Oxygen Concentration - - Weight 79.4 kg (175 lb) 09/07/2023 10:51 AM EST Height 172.7 cm (5' 8 ) 09/07/2023 10:51 AM EST Body Mass Index 26.61 09/07/2023 10:51 AM EST Plan of Treatment Health Maintenance Due Date Last Done Comments Breast Cancer Screening 1955 Pneumococcal Vaccine: 65+ Years (1 of 2 - PCV) 1962 Colorectal Cancer Screening: Annual FOBT 2005 Colorectal Cancer Screening: Colonoscopy 2005 Colorectal Cancer Screening: Sigmoidoscopy 2005 Influenza Vaccine (#1) 2024 0, 06/14/2018, 04/20/2017, Additional history exists Hepatitis B Vaccine Aged Out No longe r eligible based on patient's age to complete this topic Insurance MEDICARE Care Teams Competitive Shopper Relationship Specialty Start Date End Date Katrina Montalvo DO PCP - General Internal Medicine 06/24/21
== END 2024-10-23 13:47 | disposition home or self-care (01) ==
LOC: HO.HVS 12:50
PROVIDERS: PCP Physician Assistant; Visit Provider Surgery Vascular Surgery
DX: I73.9 Peripheral vascular disease, unspecified (principal)
CPT/HCPCS: 99214; G2211

== ENCOUNTER → 2024-10-23 12:50 | Outpatient (BNVA) | payer MEDICARE, SELFPAY | PROVIDERS: PCP Physician Assistant; Visit Provider Surgery Vascular Surgery | DX: I73.9 Peripheral vascular disease, unspecified (principal) | CPT/HCPCS: 99212 ==